=== PATIENT | female | born 1945 | race Caucasian/White ===

== ENCOUNTER → 2017-12-05 09:52 | Outpatient (CLI) | payer MEDICARE, OTHER, SELFPAY ==
--- NOTE | 2017-12-05 | DI.CT.S_ITS ---
PROCEDURE: CT ABDOMEN W CON INDICATIONS: UPPER ABDOMINAL PAIN TECHNIQUE: After the administration of oral and intravenous contrast, 5 mm thick sections acquired from the diaphragms to the iliac crests. 5 mm thick coronal and sagittal reformats were acquired. For radiation dose reduction, the following was used: automated exposure control, adjustment of mA and/or kV according to patient size. COMPARISON: [facility], CT, ABDOMEN/PELVIS WITH CONTRAST, 02/28/2016, 9:40. FINDINGS: Image quality: Excellent. Lung bases: Lung bases are clear. Heart size is normal. Solid organs: Liver is normal in size and enhancement. Gallbladder appears normal. Biliary system is non dilated. Pancreas enhances normally. Spleen is normal in size and enhancement. No adrenal nodules. Kidneys are normal in size, without hydronephrosis. Peritoneum and bowel: Contrast enhanced bowel loops appear normal in caliber. No free fluid or air. Nodes and vessels: No retroperitoneal or mesenteric adenopathy by size criteria. Aorta and inferior vena cava are normal in size. Bones: No suspicious bony lesions. No vertebral body compression fractures. Miscellaneous: No ventral hernias. IMPRESSION: Source of upper abdominal pain is not identified. No sign of intestinal obstruction or perforation. At the lung bases no inflammatory process is seen. Dictated by: Robb Sánchez M.D. on 12/05/2017 at 14:17 Approved by: Robb Sánchez M.D. on 12/05/2017 at 14:19
== END ==
PROVIDERS: PCP Internal Medicine; Visit Provider Internal Medicine
DX: R10.10 Upper abdominal pain, unspecified (principal)
CPT/HCPCS: 74160; Q9967

== ENCOUNTER → 2018-01-26 16:18 | Outpatient (CLI) | payer MEDICARE, OTHER, SELFPAY ==
--- NOTE | 2018-01-26 16:21 | DI.MRI.S_ITS ---
PROCEDURE: MR CERVICAL SPINE WO CON INDICATIONS: Cervical stenosis with right radicular features TECHNIQUE: Noncontrast sagittal T1 spin echo and T2 fast spin echo, sagittal STIR, foraminal oblique sagittal T2 fast spin echo, and axial gradient echo or T2 fast spin echo through the cervical spine. COMPARISON: [facility], MR, C-SPINE WITHOUT CONTRAST, 06/13/2016, 16:07. [facility], CR, XR CERVICAL SPINE 4V OR 5V, 01/26/2018, 16:07. FINDINGS: Image quality: Excellent. Alignment and Curvature: Anterior fusion is present at C6-7. Bone Marrow: Marrow demonstrates normal overall signal. Spinal Cord: Visualized spinal cord has normal size and signal. No cerebellar tonsillar herniation. Paraspinous Soft Tissues: No paravertebral masses. Prevertebral soft tissues are normal in thickness. Discs: Mild disc desiccation is present within the visualized cervical and thoracic spine. C2-C3: No disc bulge, spinal stenosis or foraminal narrowing. C3-C4: Mild disc bulge without spinal stenosis. Moderate left and mild right foraminal narrowing with uncovertebral hypertrophy. C4-C5: Mild disc bulge with mild spinal stenosis. Severe left and [id number] right foraminal narrowing with uncovertebral hypertrophy. C5-C6: Mild disc bulge with minimal canal narrowing. Moderate bilateral foraminal narrowing, right greater than left with uncovertebral hypertrophy. C6-C7: Postsurgical changes are present. No spinal stenosis or foraminal narrowing. C7-T1: No disc bulge, spinal stenosis or foraminal narrowing. IMPRESSION: 1. Anterior fusion at C6-7. 2. Multilevel foraminal narrowing most severe at C4-5 secondary to uncovertebral arthropathy. Dictated by: Candida Scales M.D. on 01/26/2018 at 17:22 Approved by: Candida Scales M.D. on 01/26/2018 at 17:25
--- NOTE | 2018-01-26 16:21 | DI.RAD.S_ITS ---
PROCEDURE: XR CERVICAL SPINE 4V OR 5V INDICATIONS: Cervical stenosis with right radicular features TECHNIQUE: 5 views of the cervical spine were acquired. COMPARISON: [facility], SPINE CERVICAL MIN 4VW, 07/30/2016, 12:32. FINDINGS: Bones: No fractures or dislocations to the T1 level. Stable ACDF at C6-C7 with surgical hardware and bone graft in expected position. There is mild C5-C6 and C7-T1 disc degeneration similar prior examination. Mild multilevel uncovertebral hypertrophy. Oblique views demonstrate mild bilateral foraminal narrowing at the C5-C6 and C6-C7 levels. No suspicious bony lesions. Soft tissues: Prevertebral soft tissues are normal in thickness. IMPRESSION: 1. Stable postsurgical and degenerative change redemonstrated. Dictated by: Chidi ODOM Interpreted: Clinton Goins MD on 01/26/2018 at 16:54 Approved by: Karel Goins M.D. on 01/27/2018 at 13:00
== END ==
PROVIDERS: PCP Internal Medicine; Visit Provider Personal Emergency Response Attendant
DX: M48.02 Spinal stenosis, cervical region (principal); M12.9 Arthropathy, unspecified; Z98.1 Arthrodesis status
CPT/HCPCS: 72050; 72141

== ENCOUNTER 2018-02-06 08:02 | Emergency (ER) | payer MEDICARE, OTHER, SELFPAY ==
--- NOTE | 2018-02-06 08:06 | DI.RAD.S_ITS ---
PROCEDURE: XR KNEE LT 3V INDICATIONS: injury and pain. TECHNIQUE: 3 views of the knee were acquired. COMPARISON: None. FINDINGS: Bones: No fractures or dislocations. No suspicious bony lesions. Soft tissues: There is a small joint effusion. No suspicious soft tissue calcifications. IMPRESSION: 1. No fracture or dislocation. 2. Small joint effusion. Dictated by: Elías Nelson M.D. on 02/06/2018 at 9:07 Approved by: Elías Nelson M.D. on 02/06/2018 at 9:10
[2018-02-06 08:07] VITALS: BP 119/47; PULSE 64; RESP 14; TEMP 36.5; O2SAT 98
[2018-02-06 09:00] VITALS: BP 121/61; PULSE 60; RESP 16; O2SAT 99
--- NOTE | 2018-02-06 09:18 | ED.LOWEXIN ---
HPI - Extremity Injury (Lower) General Chief Complaint: Extremity Injury, Lower Stated Complaint: FELL 2 DAYS, BAD KNEE Time Seen by Provider: 02/06/18 09:01 Source: patient Mode of arrival: ambulatory Limitations: no limitations History of Present Illness HPI Narrative: Patient is a 72-year-old female who presents with left knee pain. She said she tripped walking up stairs 2 days ago. She says it has progressively gotten worse she has had more swelling overnight. She takes tramadol with Tylenol and gabapentin for her back but has not been helping. She has no numbness or tingling. No other injuries. MD complaint: knee injury Related Data Home Medications Medication Instructions Recorded Confirmed [STOOL SOFTENER] 1 dose PO PRN PRN #0 07/03/17 02/06/18 cholecalciferol (vitamin D3) 2,000 iu PO QDAY #0 07/03/17 02/06/18 [Vitamin D3] levothyroxine [Synthroid] 0.05 mg PO QDAY #0 07/03/17 02/06/18 atorvastatin 10 mg tablet 10 mg PO DAILY 01/19/18 02/06/18 gabapentin 600 mg tablet 600 mg PO TID 01/19/18 02/06/18 tramadol 37.5 mg-acetaminophen 325 1 tab PO Q4-6H PRN 01/19/18 02/06/18 mg tablet Allergies Allergy/AdvReac Type Severity Reaction Status Date / Time Penicillins [PENICILLINS] Allergy Intermediate hives Verified 02/06/18 08:07 Review of Systems Review of Systems GENERAL: Denies chills, fatigue, malaise, fever, sweats, travel HEENT: Denies sinus pain, ear pain, sore throat, difficulty swallowing, neck pain RESPIRATORY: Denies dyspnea, cough, wheezing, hemoptysis, sputum. CARDIOVASCULAR: Denies chest pain, palpitations, orthopnea, edema GASTROINTESTINAL: Denies nausea, vomiting, abdominal pain, diarrhea, constipation, melena. : Denies dysuria, frequency, incontinence, hematuria, urinary retention, flank pain. MUSCULOSKELETAL: See HPI SKIN: No rash, no erythema, no pruritus NEUROLOGIC: Denies weakness, dizziness, headache, numbness, change in speech, confusion PSYCHIATRIC: No concerning psychosocial issues. 12 point review of systems is negative except for those stated above and HPI Exam Initial Vital Signs Initial Vital Signs: Vital Signs Temperature 97.7 F 02/06/18 08:07 Pulse Rate 64 02/06/18 08:07 Respiratory Rate 14 02/06/18 08:07 Blood Pressure 119/47 L 02/06/18 08:07 Pulse Oximetry 98 02/06/18 08:07 GENERAL: Well-appearing, well-nourished and in no acute distress. CARDIOVASCULAR: peripheral pulses in tact, cap refill <2 sec RESPIRATORY: No respiratory distress, speaks in full sentences without difficulty EXTREMITIES: Normal range of motion, no clubbing or edema. Neurovascularly intact -left knee effusion appreciated. She is able to flex and extend actively but is painful and limited due to swelling. Neurovascularly intact. Knee is stable. Tender medial side. NEUROLOGICAL: Cranial nerves II through XII grossly intact. Normal gait and speech. SKIN: Warm, dry, no petechiae, no rashes or lesions. Course Orders Ordered: ED Orders 02/06/18 08:06 XR knee LT 3V Stat Vital Signs - 8 hr 02/06/18 10:46 Pulse Rate 58 L Respiratory Rate 20 Blood Pressure 117/59 L Pulse Oximetry 99 MDM - Extremity Injury (Lower) Imaging Data left knee x-ray: Radiologist's impression: PROCEDURE: XR KNEE LT 3V INDICATIONS: injury and pain. TECHNIQUE: 3 views of the knee were acquired. COMPARISON: None. FINDINGS: Bones: No fractures or dislocations. No suspicious bony lesions. Soft tissues: There is a small joint effusion. No suspicious soft tissue calcifications. IMPRESSION: 1. No fracture or dislocation. 2. Small joint effusion. Dictated by: Elías Nelson M.D. on 02/06/2018 at 9:07 Discharge Plan Departure Patient Disposition: Home, Self-Care Clinical Impression: Strain of left knee Discharge Date/Time: 02/06/18 10:48 Interventions: ED Discharge Assessment Last Done: 02/06/18 10:46 Instructions: DI for Knee Sprain Activity Restrictions/Additional Instructions: *You have been diagnosed with left knee sprain *What to do: Were knee brace in use crutches as needed. May require physical therapy possibly an MRI *Continue to take medications as directed -ibuprofen 600 mg every 6-8 hours with food for 1 week if needed for pain *Follow up with your primary care provider in 2-3 days *Return to ER if you should have numbness tingling, increasing pain or any new, worsening or concerning symptoms Prescriptions: No Action levothyroxine [Synthroid] 50 MCG tablet 0.05 mg PO QDAY Qty: 0 RF: 0 [STOOL SOFTENER] 1 dose PO PRN PRN (Reason: Constipation) Qty: 0 RF: 0 cholecalciferol (vitamin D3) [Vitamin D3] 2,000 UNIT capsule 2,000 iu PO QDAY Qty: 0 RF: 0 gabapentin 600 mg tablet 600 mg PO TID RF: 0 tramadol-acetaminophen 37.5-325 mg tablet 1 tab PO Q4-6H PRN (Reason: Pain, Moderate) RF: 0 atorvastatin 10 mg tablet 10 mg PO DAILY RF: 0 Referrals: [facility] [Provider Group] Stormy Corea MD [Primary Care Provider] -
[2018-02-06 10:01] VITALS: BP 117/59; PULSE 60; RESP 16; O2SAT 100
[2018-02-06 10:46] VITALS: BP 117/59; PULSE 58; RESP 20; O2SAT 99
== END 2018-02-06 10:48 | disposition home or self-care (01) ==
PROVIDERS: Emergency Provider Emergency Medicine; PCP Internal Medicine
DX: S86.912A Strain of unspecified muscle(s) and tendon(s) at lower leg level, left leg, initial encounter (principal); W18.43XA Slipping, tripping and stumbling without falling due to stepping from one level to another, initial encounter
CPT/HCPCS: 73562; 99283

== ENCOUNTER 2018-02-24 07:15 | Outpatient (CLI) | payer MEDICARE, OTHER, SELFPAY ==
[2018-02-24] VITALS (9 sets, daily range): BP systolic 100–113; BP diastolic 39–60; PULSE 56–62; RESP 8–120; TEMP 36.1; O2SAT 100
--- NOTE | 2018-02-24 07:16 | DI.RAD.S_ITS ---
PROCEDURE: PAIN C/T INTERLAMINAR INJECT INDICATIONS: C7/T1 TL MIK FINDINGS: Fluoroscopic spot filming was performed to verify placement of spinal needles at the C7-T1 level(s), T6-T7 labeled on the films. Appropriate location(s) of the needle tip(s) was confirmed by injection of iodinated contrast. IMPRESSION: Intraoperative imaging for needle injection. Dictated by: Karel Goins M.D. on 02/25/2018 at 8:23 Approved by: Karel Goins M.D. on 02/25/2018 at 8:25
--- NOTE | 2018-02-24 08:18 | PM.PROC.1 ---
Procedures Date/Time Date of procedure: 02/24/18 Time of procedure: 08:39 General Procedure description: PREOP DIAGNOSIS 1. CERVICAL STENOSIS, 2. CERVICAL HNP WITH UPPER EXTREMITY RADICULAR FEATURES, POST OP DIAGNOSIS 1. CERVICAL STENOSIS, 2. CERVICAL HNP WITH UPPER EXTREMITY RADICULAR FEATURES, PROCEDURES 1. FLUORSCOPICALLY GUIDED CONTRAST CONTROLLED INTERLAMINAR EPIDURAL STEROID INJECTION - C7/T1 TL MIK, PHYSICIAN: Justyn Diaz DO INDICATIONS: Renetta is referred by for treatment of Cervical Stenosis. FINDINGS Cervical Stenosis due to disc deterioration and nerve root irritation and nerve root irritation DESCRIPTION OF PROCEDURE Fluoroscopically guided, contrast-controlled C7/T1 translaminar epidural steroid injection with conscious sedation. Following denial of allergy and review of potential side effects and complications, including, but not necessarily limited to, infection, allergic reaction, local tissue breakdown, temporary as well as permanent nerve injury, stroke, paralysis, and possible , the patient indicated that patient understood and agreed to proceed. An informed consent document was signed by the patient, witnessed by a nurse, and placed in the patient's chart. Additionally, other treatment options including modalities, medications, and physical therapy were reviewed with the patient. After review of previous anaesthesic history and IV conscious sedation the patient was deemed safe to proceed with todays procedure with IV conscious sedation as ASA class II designation. Safety time-out was performed to confirm patient ID, procedure to be performed and site of procedure. IV sedation was accomplished with a combination of 4mg of Versed administered by the RN after DO order, titrated to patient comfort during the course of the procedure while the patient remained responsive to all verbal commands. In the prone position, following sterile prep and drape of the cervical region, the C7/T1 translaminar space was identified fluoroscopically. The skin was anesthetized via a 25-gauge 1.5-inch needle with 1% lidocaine solution. At this point, a 25-gauge, 2.5-inch short bevel spinal needle was atraumatically introduced and advanced under fluoroscopic guidance into epidural space at the C7/T1 translaminar space. Depth was confirmed on lateral view. Radiological data, including multiple fluoroscopic views of the cervical spine, reveal a spinal needle at the C7/T1 translaminar space. Lateral views then show placement of the needle in the epidural space. Subsequent views show contrast material flowing superiorly and inferiorly in the epidural space. DSA fluoroscopy with live contrast injection, once again, confirmed no vascular or intrathecal uptake. At this point, using loss of resistance technique with saline and air, the epidural space was entered. Following negative aspiration, injection of approximately 1.5 cc of Isovue-200 with live fluoroscopy in the AP view confirmed epidural flow in the epidural space without vascular or intrathecal uptake observed. Subsequently, a test dose of 1 cc of 1% lidocaine solution was injected and patient was observed for two minutes without signs or symptoms of complications, including abdominal pain, shortness of breath, bilateral upper or lower extremity weakness, nausea and vomiting, prior to steroid injection. At this point, 3 cc or 30 mg of dexamethasone was then injected without incident. The patient tolerated the procedure well without signs or symptoms of complications prior to transfer to the recovery area for further monitoring The patient was then transferred to the recovery area where they were observed for an appropriate period of time after the injection. The patient reported a VAS score of 6 prior to the procedure and a post-procedure VAS of 0. Total Fluoroscopy Time: 23.2 seconds Total Conscious Sedation Time: 24min POST OP INSTRUCTIONS The patient was provided a Pain Log to continue to record their response to the target-specific procedure prior to follow-up visit with the referring provider. Additionally, specific post-injection care instructions and a contact number to our office were provided if concerns arise regarding possible complications associated with the procedure are suspected. Justyn Diaz DO Complications: none
[2018-02-24] MEDS: DEXAMETHASONE 10 MG/ML VIAL 30 MG INJ (08:30)
[2018-02-24] MEDS: LIDOCAINE 1% 20 ML INJ 5 ML INJ (08:30)
[2018-02-24] MEDS: IOPAMIDOL 15 ML VIAL 3 ML INJ (08:30)
[2018-02-24] MEDS: MIDAZOLAM 5 MG/5 ML VIAL IV (08:30)
--- NOTE | 2018-02-25 17:19 | PC.NURSE ---
POST PROCEDURE FOLLOW UP CALL MADE, PT DENIES CONCERNS AT THIS TIME.
== END 2018-02-24 09:47 | disposition home or self-care (01) ==
LOC: RAD 07:16
PROVIDERS: PCP Internal Medicine; Visit Provider Physical Medicine & Rehabilitation
DX: M50.13 Cervical disc disorder with radiculopathy, cervicothoracic region (principal); M48.02 Spinal stenosis, cervical region
CPT/HCPCS: 62321; 99152; J1100; J2250

== ENCOUNTER 2018-03-24 09:23 | Outpatient (CLI) | payer MEDICARE, OTHER, SELFPAY ==
[2018-03-24] VITALS (12 sets, daily range): BP systolic 107–137; BP diastolic 47–68; PULSE 59–66; RESP 16–20; TEMP 35.8; O2SAT 98–100
--- NOTE | 2018-03-24 09:27 | DI.RAD.S_ITS ---
PROCEDURE: PAIN C/T INTERLAMINAR INJECT INDICATIONS: Thoracic HNP with radiculopathy FINDINGS: Fluoroscopic spot filming was performed to verify placement of spinal needles at the T9-T10 level(s), as labeled on the films. Appropriate location(s) of the needle tip(s) was confirmed by injection of iodinated contrast. IMPRESSION: Successful T9-T10 midline translaminar needle tip localization for epidural steroid injection. Dictated by: Robb Sánchez M.D. on 03/24/2018 at 14:25 Approved by: Robb Sánchez M.D. on 03/24/2018 at 14:25
--- NOTE | 2018-03-24 11:29 | PM.PROC.1 ---
Procedures Date/Time Date of procedure: 03/24/18 Time of procedure: 11:29 General Procedure description: Preop diagnosis: Thoracic stenosis with HNP Postprocedure diagnosis: Thoracic stenosis with HNP Physician: Justyn Diaz D.O. Indications: Irasema is referred by for treatment of thoracic DDD/DJD with radiculopathy Description of procedure: Fluoroscopic guided, contrast controlled T9/10 translaminar epidural steroid injection with conscious sedation. Following denial of allergy review potential side effects and complications, including, but not necessarily limited to, infection, allergic reaction, local tissue breakdown, temporary as well as permanent nerve injury, stroke, paralysis and possible , the patient indicated that they understood and agreed to proceed. An informed consent document was signed by the patient, witnessed by the nurse, and placed in the patient's chart. Additionally other treatment options including modalities, medications and physical therapy were reviewed with the patient. After review of previous anaesthesic history and IV conscious sedation the patient was deemed safe to proceed with todays procedure with IV conscious sedation as ASA class II designation. Safety time-out was performed to confirm patient ID, procedure to be performed and site of procedure. IV sedation was accomplished with a combination of 5mg of Versed administered by the RN after DO order, titrated to patient comfort during the course of the procedure while the patient remained responsive to all verbal commands In the prone position, following sterile prep and drape of the thoracic region the T9/10 translaminar space was identified fluoroscopically. The skin was anesthetized via 25 gauge 20 mm sheath with 1% lidocaine solution. At this point a 20 gauge epidural needle was atraumatically introduced and advanced under fluoroscopic guidance into the region of the T9/10 translaminar space depth was confirmed on lateral view. Radiographic data, including multiple fluoroscopic views of the thoracic spine, reveals spinal needle at the T9/10 translaminar space. Lateral views then showed the placement of the needle in the epidural space. Subsequent view show contrast material flowing superiorly and inferiorly in the epidural space. No vascular or intrathecal uptake is observed. At this point using loss of resistance technique with saline and the epidural space was entered. This was confirmed followed negative aspiration and injection of approximately 1.5 cc of Isovue 200 showed excellent epidural flow without vascular or intrathecal uptake. At this point, 1 cc of 1% lidocaine solution was admitted as a test dose and the patient was observed for an appropriate period of time without signs or symptoms of complications, including abdominal pain, shortness of breath, bilateral upper and lower extremity weakness, nausea and vomiting, prior to steroid injection. Subsequently, 3 cc or 30 mg of dexamethasone was then injected without incident. The patient tolerated the procedure well without signs of complications and subsequently was transferred to the recovery room for further monitoring. The patient was then transferred to the recovery area with their observed for an appropriate time after the injection. Patient reported a VAS score of 7 prior to the procedure and postprocedure VAS of 2. Total fluoroscopy time: 56.3 sec Total conscious sedation time: 24 min Justyn Diaz D.O. Complications: none
[2018-03-24] MEDS: MIDAZOLAM 5 MG/5 ML VIAL IV (11:33)
[2018-03-24] MEDS: IOPAMIDOL 15 ML VIAL 3 ML INJ (11:38)
[2018-03-24] MEDS: DEXAMETHASONE 10 MG/ML VIAL 30 MG INJ (11:38)
[2018-03-24] MEDS: LIDOCAINE 1% 20 ML INJ 5 ML INJ (11:38)
[2018-03-24 11:39] LABS: Alanine Aminotransferase 26 IU/L (9-52); Albumin 4.4 g/dL (3.5-5.0); Alkaline Phosphatase 54 U/L (38-126); Aspartate Aminotransferase 31 IU/L (14-36); Bilirubin Total 0.7 mg/dL (0.2-1.3); Bilirubin Unconjugated 0.4 mg/dL (0.0-1.1); Cholesterol 180 mg/dL (140-199); Globulin 2.2 g/dL (1.7-4.1); HDL Cholesterol 78 mg/dL (40-60); HEMOLYSIS < 15 (0-50); LDL Cholesterol Calculated 83 mg/dL (<100); Total Protein 6.6 g/dL (6.3-8.2); Triglycerides 97 mg/dL (35-150)
== END 2018-03-24 12:48 ==
LOC: RAD 09:24
PROVIDERS: PCP Internal Medicine; Visit Provider Physical Medicine & Rehabilitation
DX: M51.14 Intervertebral disc disorders with radiculopathy, thoracic region (principal); M48.04 Spinal stenosis, thoracic region
CPT/HCPCS: 36415; 62321; 80061; 80076; 99152; J1100; J2250

== ENCOUNTER → 2018-05-14 08:53 | Outpatient (CLI) | payer MEDICARE, OTHER, SELFPAY ==
--- NOTE | 2018-05-14 | DI.MG.S_ITS ---
BILATERAL DIGITAL SCREENING MAMMOGRAM 3D/2D WITH CAD: 05/14/2018 CLINICAL: Routine screening. Family history of breast cancer. Comparison is made to exams dated: 05/26/2017 mammogram, 05/16/2016 mammogram, and 04/21/2015 mammogram - [facility]. There are scattered fibroglandular elements in both breasts. Current study was also evaluated with a Computer Aided Detection (CAD) system. There is a mole marker on both breasts. There are linear scar markers overlying the right breast. No significant masses, calcifications, or other findings are seen in either breast. There has been no significant interval change. IMPRESSION: NEGATIVE There is no mammographic evidence of malignancy. A 1 year screening mammogram is recommended.(05/15/2019) This exam was interpreted at Station ID: [id number]. NOTE: For mammograms, a report in lay terms will be sent to the patient. Approximately 15% of breast malignancies will not be visualized mammographically. In the management of a palpable breast mass, a negative mammogram must not discourage biopsy of a clinically suspicious lesion. Electronically Signed By: Boo Peres M.D. ecl/:05/15/2018 02:23:18 letter sent: Normal Exam ACR BI-RADS Category 1: Negative [id number]
== END ==
PROVIDERS: PCP Internal Medicine; Visit Provider Internal Medicine
DX: Z12.31 Encounter for screening mammogram for malignant neoplasm of breast (principal); Z80.3 Family history of malignant neoplasm of breast
CPT/HCPCS: 77063; 77067

== ENCOUNTER → 2018-06-30 12:44 | Outpatient (CLI) | payer MEDICARE, OTHER, SELFPAY ==
[2018-06-30 13:53] LABS: Add Manual Diff / Slide Review NO; Basophils Percent Auto 2.3 % (0-2); Eosinophils Percent Auto 3.3 % (2-4); Hematocrit 38.9 % (36-46); Hemoglobin 12.9 g/dL (12.0-16.0); Lymphocytes Percent Auto 36.6 % (25-40); Mean Corpuscular HGB Conc 33.2 % (30-36); Mean Corpuscular Hemoglobin 31.6 PG (26-34); Mean Corpuscular Volume 95.2 fL (80-100); Monocytes Percent Auto 9.3 % (3-14); Neutrophils Absolute Auto 2100 /uL (3000-5900); Neutrophils Percent Auto 48.5 % (50-75); Platelet Count 183 X10^3/uL (150-400); Red Blood Cell Count 4.08 X10^6/uL (4.0-5.2); Red Cell Distribution Width 13.8 % (11.6-14.8); White Blood Cell Count 4.3 X10^3/uL (4.5-11.0)
[2018-06-30 14:36] LABS: Alanine Aminotransferase 26 IU/L (9-52); Albumin 4.4 g/dL (3.5-5.0); Albumin Globulin Ratio 1.8 (1.0-2.8); Alkaline Phosphatase 72 U/L (38-126); Aspartate Aminotransferase 35 IU/L (14-36); Bilirubin Total 0.3 mg/dL (0.2-1.3); Blood Urea Nitrogen 14 mg/dL (7-17); Calcium 9.3 mg/dL (8.4-10.2); Carbon Dioxide 29 mmol/L (22-32); Chloride 103 mmol/L (98-107); Estimated Glomerular Filt Rate > 60.0 mL/min (>60); Globulin 2.5 g/dL (1.7-4.1); Glucose 89 mg/dL (80-110); HEMOLYSIS < 15 (0-50); Potassium 4.1 mmol/L (3.4-5.1); Sodium 142 mmol/L (137-145); Total Protein 6.9 g/dL (6.3-8.2)
== END ==
PROVIDERS: Internal Medicine Hematology & Oncology; Family Provider Internal Medicine; PCP Internal Medicine; Visit Provider Internal Medicine Hematology & Oncology
DX: D70.9 Neutropenia, unspecified (principal); E03.9 Hypothyroidism, unspecified
CPT/HCPCS: 36415; 80053; 85025

== ENCOUNTER → 2018-07-21 14:24 | Outpatient (CLI) | payer MEDICARE, OTHER, SELFPAY ==
--- NOTE | 2018-07-21 | DI.RAD.S_ITS ---
PROCEDURE: XR LUMBAR SPINE MIN 4V INDICATIONS: Spinal stenosis, lumbar region without neurogenic claudicati TECHNIQUE: 5 views of the lumbar spine were acquired. COMPARISON: [facility], CR, SPINE LUMB MIN 4VW, 01/15/2017, 15:53. FINDINGS: Bones: No fracture or focal osseous destruction. Diffuse osteopenia. Post surgical changes with L4-L5 posterior spinal fixation with interbody cage graft. Hardware appears intact without evidence of loosening. There is mild narrowing of the remaining lumbar disc spaces. Levocurvature of the lumbar spine. Posterior decompression at L4 Soft tissues: Overlying bowel gas pattern is normal. No suspicious soft tissue calcifications. Oblique images: No pars defects. IMPRESSION: Unchanged postsurgical sequela from L4-L5, and mild diffuse lumbar disc degeneration with no definite interval progression. Levoscoliosis Dictated by: Dhaval Dang M.D. on 07/21/2018 at 16:39 Approved by: Dhaval Dang M.D. on 07/21/2018 at 16:41
== END ==
PROVIDERS: Family Provider Physical Therapist; PCP Internal Medicine; Visit Provider Internal Medicine
DX: M48.061 Spinal stenosis, lumbar region without neurogenic claudication (principal); M51.36 Other intervertebral disc degeneration, lumbar region; M41.86 Other forms of scoliosis, lumbar region
CPT/HCPCS: 72110

== ENCOUNTER 2018-08-05 15:42 | Outpatient (CLI) | payer MEDICARE, OTHER, SELFPAY ==
[2018-08-05] VITALS (9 sets, daily range): BP systolic 95–137; BP diastolic 50–77; PULSE 66–70; RESP 16–18; TEMP 36.1; O2SAT 98–100
--- NOTE | 2018-08-05 15:43 | DI.RAD.S_ITS ---
PROCEDURE: PAIN L/S TRANSFORAMINAL INJECT INDICATIONS: SPINAL STENOSIS FINDINGS: Fluoroscopic spot filming was performed to verify placement of spinal needles at the right L3-L4 level for epidural steroid injection through the perineural as labeled on the films. Appropriate location(s) of the needle tip(s) was confirmed by injection of iodinated contrast. IMPRESSION: Successful perineural needle tip localization for epidural steroid injection. Dictated by: Robb Sánchez M.D. on 08/05/2018 at 16:59 Approved by: Robb Sánchez M.D. on 08/05/2018 at 17:00
[2018-08-05] MEDS: MIDAZOLAM 5 MG/5 ML VIAL IV (16:10)
[2018-08-05] MEDS: DEXAMETHASONE 10 MG/ML VIAL 20 MG INJ (16:15)
[2018-08-05] MEDS: IOPAMIDOL 15 ML VIAL 3 ML INJ (16:15)
[2018-08-05] MEDS: BUPIVACAINE 0.25% (PF) VIAL 2 ML INJ (16:15)
[2018-08-05] MEDS: methylPREDNISolone acetate 80 MG/ML VIAL INJ (16:15)
--- NOTE | 2018-08-05 16:18 | PC.NURSE ---
ASSISTING PT OFF TABLE AND TRANSPORTING TO POST PROC AREA IN STABLE CONDITION
--- NOTE | 2018-08-05 16:24 | P.PCN_ITS ---
Procedures Date/Time Date of procedure: 08/05/18 Time of procedure: 16:24 General Procedure description: PROVIDER: Justyn Diaz DO Operative Note PREOP DIAGNOSIS 1. FORAMINAL STENOSIS WITH LE SYMPTOMS, POST OP DIAGNOSIS 1. FORAMINAL STENOSIS WITH LE SYMPTOMS, PROCEDURES 1. FLUOROSCOPICALLY GUIDED CONTRAST CONTROLLED TRANSFORAMINAL EPIDURAL STEROID INJECTION - RIGHT L3/4 TFESI SURGEON: Justyn Diaz DO INDICATIONS Irasema is referred by Dr. Corea for treatment of Foraminal Stenosis with right LE Symptoms FINDINGS Foraminal Nerve Root Compression secondary to disc disease and facet hypertrophy DESCRIPTION OF PROCEDURE Following denial of allergy and review of potential side effects and complications, including, but not necessarily limited to, infection, allergic reaction, local tissue breakdown, stroke, temporary or permanent nerve injury, paralysis, and possible , the patient indicated that the patient understood and agreed to proceed. An informed consent document was signed by the patient, witnessed by a nurse, and placed in the patient's chart. Additionally, other treatment options including medications, modalities, and physical therapy were reviewed with the patient. After review of previous anaesthesic history and IV conscious sedation the patient was deemed safe to proceed with todays procedure with IV conscious sedation as ASA class II designation. Safety time-out was performed to confirm patient ID, procedure to be performed and site of procedure. IV sedation was accomplished with a combination of 3mg was administered by the RN after DO order , titrated to patient comfort during the course of the procedure while the patient remained responsive to all verbal commands In the prone position following sterile prep and drape of the lumbar region, the right L3/4 posterior neuroforamen was identified fluoroscopically. The skin was anesthetized via a 25-gauge 1.5-inch needle with 1% lidocaine solution. At this point, a 25-gauge 3.5-inch spinal needle was atraumatically introduced and advanced under fluoroscopic guidance through the posterior right L3/4 neuroforamen to approximately the anterior aspect of the canal. Depth was confirmed on lateral view. Following negative aspiration, injection of approximately 1.5 cc of Isovue 200 under live fluoroscopy in the AP view confirmed excellent flow along the nerve root, into the epidural space without vascular or intrathecal uptake observed Radiological data, including multiple fluoroscopic views of the lumbosacral spine, reveal a spinal needle at the right L3/4 posterior neuroforamen. Subsequent views show flow of contrast material flowing superiorly and inferiorly along the nerve root confirming epidural flow. Subsequently, a test dose of 1.5 cc of 1% lidocaine solution was administered and patient was observed for two minutes for signs or symptoms of complications , including abdominal pain, shortness of breath, bilateral upper or lower extremity weakness, nausea and vomiting, prior to steroid injection. At this point, a total of 3 cc or 20 mg of dexamethasone and 80mg Depo medrol was injected without incident. The patient tolerated the procedure well without signs or symptoms of complications prior to transfer to the recovery area continued monitoring without incident. The patient was then transferred to the recovery area where they were observed for an appropriate time after the injection. The patient reported a VAS score of 7 prior to the procedure and a post-procedure VAS of 0. Total Fluoroscopy Time: 24.2 seconds Total Conscious Sedation Time: 24min POST OP INSTRUCTIONS The patient was provided a Pain Log to continue to record their response to the target-specific procedure prior to follow-up visit with their referring physician. Additionally, specific post-injection care instructions and a contact number to our office were provided if concerns arise regarding possible complications associated with the procedure are suspected. Justyn Diaz, Complications: none
== END 2018-08-05 16:47 ==
LOC: RAD 15:43
PROVIDERS: PCP Internal Medicine; Visit Provider Physical Medicine & Rehabilitation
DX: M48.062 Spinal stenosis, lumbar region with neurogenic claudication (principal); M51.16 Intervertebral disc disorders with radiculopathy, lumbar region; Z98.1 Arthrodesis status
CPT/HCPCS: 64483; 99152; J1040; J1100; J2250

== ENCOUNTER → 2018-11-27 16:41 | Outpatient (CLI) | payer MEDICARE, OTHER, SELFPAY ==
--- NOTE | 2018-11-27 16:42 | DI.MRI.S_ITS ---
PROCEDURE: MR ABDOMEN WO CON INDICATIONS: EPIGASTRIC PAIN TECHNIQUE: Coronal HASTE through the abdomen, axial 2-D FLASH in- and [id number], and breath-hold T2 FSE with fat saturation through the biliary system and pancreas. Oblique coronal and axial thin-slice HASTE, radial thick-slab HASTE centered on the extrahepatic bile ducts. Intravenous secretin: Not requested. COMPARISON: [facility], CT, CT ABDOMEN W CON, 12/05/2017, 10:46. FINDINGS: Image quality: Excellent. Pancreas and biliary system: Intra- and extra-hepatic biliary ducts are non dilated. Pancreas is normal in morphology, without adjacent soft tissue edema. Pancreatic duct is normal in caliber, without developmental anomalies. Gallbladder appears normal. Other solid organs: Liver is normal in size. Spleen is normal in size. No adrenal nodules. Both kidneys are normal in size, without hydronephrosis. Nodes and vessels: No retroperitoneal or mesenteric adenopathy by size criteria. Aorta and inferior vena cava are normal in size. Bowel and peritoneum: Unenhanced bowel loops are normal in caliber. No free fluid. Lung bases: No basal pleural effusions. Heart size is normal. Bones and soft tissues: No ventral hernias. Bone marrow is of normal overall signal. IMPRESSION: Source of reported epigastric pain is not identified. There is no sign of gallstones or gallbladder inflammation. The pancreas appears free of inflammation also and no biliary or pancreatic ductal calculus or dilatation is present. Dictated by: Robb Sánchez M.D. on 11/30/2018 at 11:09 Approved by: Robb Sánchez M.D. on 11/30/2018 at 11:11
== END ==
PROVIDERS: PCP Internal Medicine; Visit Provider Physician Assistant
DX: R10.13 Epigastric pain (principal)
CPT/HCPCS: 74181

== ENCOUNTER → 2019-05-22 10:20 | Outpatient (CLI) | payer MEDICARE, OTHER, SELFPAY | PROVIDERS: PCP Internal Medicine; Visit Provider Internal Medicine | DX: Z12.31 Encounter for screening mammogram for malignant neoplasm of breast (principal) ==

== ENCOUNTER → 2019-05-31 10:20 | Outpatient (CLI) | payer MEDICARE, OTHER, SELFPAY ==
[2019-05-31 10:56] LABS: BUN Creatinine Ratio 16.3 (6-22); Blood Urea Nitrogen 13 mg/dL (7-17); Estimated Glomerular Filt Rate > 60.0 mL/min (>60)
--- NOTE | 2019-05-31 11:00 | DI.CT.S_ITS ---
PROCEDURE: CT ABDOMEN PELVIS W CON INDICATIONS: Pelvic and perineal pain bone density disorders TECHNIQUE: After the administration of oral and intravenous contrast, 5 mm thick sections acquired from the diaphragms to the symphysis. 5 mm thick coronal and sagittal reformats were performed. For radiation dose reduction, the following was used: automated exposure control, adjustment of mA and/or kV according to patient size. COMPARISON: CT, ABD/PELVIS W/CON ([facility]), 03/22/2009, 17:33. [facility], CT, CT ABDOMEN W CON, 12/05/2017, 10:46. [facility], MR, MR ABDOMEN WO CON, 11/27/2018, 17:15. [facility], CT, ABDOMEN/PELVIS WITH CONTRAST, 02/28/2016, 9:40. FINDINGS: Image quality: Excellent. ABDOMEN: Lung bases: Lung bases are clear. Heart size is normal. Solid organs: Liver is enlarged with steatosis. Gallbladder is unremarkable. Biliary system is non-dilated. Pancreas enhances normally. Spleen is normal in size and enhancement. No adrenal nodules. Kidneys are normal in size and enhancement, without hydronephrosis. Peritoneum and bowel: Stomach, small bowel, and colon loops are nonobstructive. There is a thickened appearance within the transverse, descending and sigmoid colon. Diverticula are present. Minimal areas of questionable pericolonic stranding are present. The It is noted that there is significant thickening of the pylorus relatively unchanged compared to 2018. The No free fluid or air. Nodes and vessels: No retroperitoneal or mesenteric adenopathy. Aorta and inferior vena cava are normal in caliber. Miscellaneous: No ventral hernias. PELVIS: Genitourinary: Bladder wall thickness is normal. Miscellaneous: No inguinal hernias or adenopathy. Bones: No suspicious bony lesions. No vertebral body compression fractures. IMPRESSION: 1. Appearance of thickening within the transverse, descending and sigmoid colon as above. While it is incompletely distended, there are diverticula and questionable pericolonic stranding raise concern for early colitis process possibly secondary to diverticulitis or other etiology such as infection or inflammation. 2. Hepatomegaly with steatosis. Dictated by: Candida Scales M.D. on 05/31/2019 at 14:00 Approved by: Candida Scales M.D. on 05/31/2019 at 14:07
== END ==
PROVIDERS: PCP Internal Medicine; Visit Provider Internal Medicine
DX: R10.2 Pelvic and perineal pain (principal); M85.852 Other specified disorders of bone density and structure, left thigh; Z78.0 Asymptomatic menopausal state; E03.9 Hypothyroidism, unspecified; E78.5 Hyperlipidemia, unspecified; R16.0 Hepatomegaly, not elsewhere classified; K76.0 Fatty (change of) liver, not elsewhere classified; K57.30 Diverticulosis of large intestine without perforation or abscess without bleeding; Z90.722 Acquired absence of ovaries, bilateral
CPT/HCPCS: 36415; 74177; 77080; 82565; 84520; Q9967

== ENCOUNTER → 2019-06-18 09:13 | Outpatient (CLI) | payer MEDICARE, OTHER, SELFPAY ==
--- NOTE | 2019-06-18 | DI.US.S_ITS ---
LIMITED ULTRASOUND OF LEFT BREAST AND AXILLA: 06/18/2019 CLINICAL: Left breast discomfort. Comparison is made to exams dated: 06/18/2019 mammogram, 05/14/2018 mammogram - [facility], 05/26/2017 mammogram, 05/16/2016 mammogram, and 04/19/2014 mammogram - [facility]. Real-time ultrasound of the left breast 6 o'clock, and axilla regions was performed on the areas of interest. IMPRESSION: NEGATIVE There is no sonographic evidence of malignancy. There is no abnormality seen in the left breast to correspond with the pain at 6 o'clock, however, clinical followup is recommended. There is no abnormality seen in the left axilla to correspond with the pain in the left axilla, however, clinical followup is recommended. A 1 year screening mammogram is recommended. This exam was interpreted at Station ID: [id number]. Electronically Signed By: Elías viera/clara:06/18/2019 11:33:42 letter sent: Clinical Evaluation Ultrasound BI-RADS: 1 Negative
--- NOTE | 2019-06-18 | DI.MG.S_ITS ---
BILATERAL DIGITAL DIAGNOSTIC MAMMOGRAM 3D/2D: 06/18/2019 CLINICAL: Left breast lump and pain. Comparison is made to exams dated: 05/14/2018 mammogram - [facility], 05/26/2017 mammogram, and 05/16/2016 mammogram - [facility]. There are scattered fibroglandular elements in both breasts. No significant masses, calcifications, or other findings are seen in either breast. IMPRESSION: INCOMPLETE: NEEDS ADDITIONAL IMAGING EVALUATION There is no abnormality seen in the left axilla to correspond with the pain in the left axilla, however, ultrasound is recommended. There is no abnormality seen in the left breast to correspond with the pain at 6 o'clock, however, ultrasound is recommended. This exam was interpreted at Station ID: [id number]. NOTE: For mammograms, a report in lay terms will be sent to the patient. Approximately 15% of breast malignancies will not be visualized mammographically. In the management of a palpable breast mass, a negative mammogram must not discourage biopsy of a clinically suspicious lesion. Electronically Signed By: Elías viera/clara:06/18/2019 11:32:32 ACR BI-RADS Category 0: Incomplete [id number]
== END ==
PROVIDERS: PCP Internal Medicine; Visit Provider Internal Medicine
DX: R92.8 Other abnormal and inconclusive findings on diagnostic imaging of breast (principal); N64.4 Mastodynia
CPT/HCPCS: 76642; 77066; G0279

== ENCOUNTER → 2019-07-27 11:54 | Outpatient (CLI) | payer MEDICARE, OTHER, SELFPAY ==
--- NOTE | 2019-07-27 | DI.MRI.S_ITS ---
BREAST MRI OF BOTH BREASTS- WITH CAD: 07/27/2019 CLINICAL: Left breast lump. Comparison is made to exams dated: 06/18/2019 ultrasound, 06/18/2019 mammogram, and 05/14/2018 mammogram - [facility]. Interpretation of this MRI was correlated with available mammograms and ultrasounds. Informed consent was obtained from the patient. 20 cc of ProHance (Gadoteridol) nonionic contrast was injected. Axial T1, T2, sagittal T1, and pre and post contrast T1 images were obtained with a dedicated breast coil. Post processing was performed including computer aided calculations of any tumor volumes and dimensions. There is minimal background parenchymal enhancement. Right breast: No discrete mass or abnormal enhancement to suggest malignancy in the right breast. Left breast: The left breast is asymmetrically larger than the right. No discrete mass or asymmetric enhancement to suggest malignancy. Specifically, no definite mass lesions demonstrated in the area of reported pain and palpable abnormality at the 6:00 position or reported pain in the left axilla. Miscellaneous: No abnormal enlarged axillary or internal mammary lymph nodes by size criteria. IMPRESSION: NEGATIVE 1. No evidence of malignancy in the right or left breast. Specifically, no discrete mass or abnormal enhancement demonstrated in the areas of pain and palpable abnormality in the left breast and left axilla. Recommend continued clinical followup and return to screening mammography. This exam was interpreted at Station ID: [id number]. Electronically Signed By: Elías viera/:07/27/2019 15:18:20 letter sent: Clinical Evaluation ACR BI-RADS Category 1: Negative [id number]
== END ==
PROVIDERS: PCP Internal Medicine; Visit Provider Internal Medicine
DX: N63.25 Unspecified lump in the left breast, overlapping quadrants (principal); N64.4 Mastodynia
CPT/HCPCS: 77049; A9579

== ENCOUNTER 2019-08-27 10:25 | Outpatient (CLI) | payer MEDICARE, OTHER, SELFPAY ==
[2019-08-27] VITALS (9 sets, daily range): BP systolic 101–125; BP diastolic 34–66; PULSE 57–64; RESP 16; TEMP 36.2; O2SAT 98–100
--- NOTE | 2019-08-27 10:27 | DI.RAD.S_ITS ---
PROCEDURE: PAIN C/T INTERLAMINAR INJECT INDICATIONS: THORACIC HERNIATED NUCLEUS PULPOSUS FINDINGS: Fluoroscopic spot filming was performed to verify placement of spinal needles at the T9-T10 level(s), as labeled on the films. Appropriate location(s) of the needle tip(s) was confirmed by injection of iodinated contrast. Dictated by: Dhaval Dang M.D. on 08/27/2019 at 13:32 Approved by: Dhaval Dang M.D. on 08/27/2019 at 13:33
[2019-08-27] MEDS: MIDAZOLAM 5 MG/5 ML VIAL IV (10:56)
[2019-08-27] MEDS: fentaNYL 100 MCG/2 ML INJ 50 MCG IV (10:56)
[2019-08-27] MEDS: BUPIVACAINE 0.25% (PF) VIAL 2 ML INJ (11:03)
[2019-08-27] MEDS: DEXAMETHASONE 10 MG/ML VIAL 20 MG INJ (11:03)
[2019-08-27] MEDS: IOPAMIDOL 15 ML VIAL 3 ML INJ (11:03)
--- NOTE | 2019-08-27 11:13 | PC.NURSE ---
ASSISTING PT OFF TABLE AND TRANSPORTING TO POST PROC AREA IN STABLE CONDITION. PASSING RN CARE OF PT OFF TO LIZ Cm RN.
--- NOTE | 2019-08-27 11:15 | P.PCN_ITS ---
Procedures Date/Time Date of procedure: 08/27/19 Time of procedure: 11:15 General Procedure description: Preop diagnosis: Thoracic stenosis with HNP Postprocedure diagnosis: Thoracic stenosis with HNP Physician: Justyn Diaz D.O. Indications: Irasema is referred by Dr. Corea for treatment of thoracic DDD/DJD with radiculopathy Description of procedure: Fluoroscopic guided, contrast controlled T9/10 translaminar epidural steroid inj ection with conscious sedation. Following review of allergy review potential side effects and complications, including, but not necessarily limited to, infection, allergic reaction, local tissue breakdown, temporary as well as permanent nerve injury, stroke, paralysis and possible , the patient indicated that they understood and agreed to proceed. An informed consent document was signed by the patient, witnessed by the nurse, and placed in the patient's chart. Additionally other treatment options including modalities, medications and physical therapy were reviewed with the patient. After review of previous anaesthesic history and IV conscious sedation the patient was deemed safe to proceed with todays procedure with IV conscious sedation as ASA class II designation. Safety time-out was performed to confirm patient ID, procedure to be performed and site of procedure. IV sedation was accomplished with a combination of 2mg of Versed and 50mcg of Fentanyl administered by the RN after DO order, titrated to patient comfort during the course of the procedure while the patient remained responsive to all verbal commands In the prone position, following sterile prep and drape of the thoracic region the T9/10 translaminar space was identified fluoroscopically. The skin was anesthetized via 25 gauge 20 mm sheath with 1% lidocaine solution. At this point a 25 gauge epidural needle was atraumatically introduced and advanced under fluoroscopic guidance into the region of the T9/10 translaminar space depth was confirmed on lateral view. Radiographic data, including multiple fluoroscopic views of the thoracic spine, reveals spinal needle at the T9/10 translaminar space. Lateral views then showed the placement of the needle in the epidural space. Subsequent view show contrast material flowing superiorly and inferiorly in the epidural space. No vascular or intrathecal uptake is observed. At this point using loss of resistance technique with saline and the epidural space was entered. This was confirmed followed negative aspiration and injection of approximately 1.5 cc of Isovue 200 showed excellent epidural flow without vascular or intrathecal uptake. At this point, 1cc of 0.25% marcaine solution was admitted as a test dose and the patient was observed for an appropriate period of time without signs or symptoms of complications, including abdominal pain, shortness of breath, bilateral upper and lower extremity weakness, nausea and vomiting, prior to steroid injection. Subsequently, 2cc or 20mg of dexamethasone was then injected without incident. The patient tolerated the procedure well without signs of complications and subsequently was transferred to the recovery room for further monitoring. The patient was then transferred to the recovery area with their observed for an appropriate time after the injection. Patient reported a VAS score of 7 prior to the procedure and postprocedure VAS of 2. Total fluoroscopy time: 21 sec Total conscious sedation time: 24 min Justyn Diaz D.O. Complications: none
--- NOTE | 2019-08-27 11:47 | PC.NURSE ---
Post procedure dishcarge note: Patient arrived AA/O x 3 slightly drowsy from sedation. VSS on arrival. Handoff report received from Natalia Garrison RN. Pain level 0/10. Discharge instructions reviewed with good understanding. Discharged to home. Ambulated to car with at 1140
== END 2019-08-27 11:40 | disposition home or self-care (01) ==
LOC: RAD 10:26
PROVIDERS: Family Provider Internal Medicine; PCP Internal Medicine; Visit Provider Physical Medicine & Rehabilitation
DX: M48.04 Spinal stenosis, thoracic region (principal); M51.14 Intervertebral disc disorders with radiculopathy, thoracic region
CPT/HCPCS: 62321; 99152; J1100; J2250; J3010

== ENCOUNTER → 2019-10-01 07:10 | Outpatient (CLI) | payer MEDICARE, OTHER, SELFPAY ==
--- NOTE | 2019-10-01 07:13 | DI.MRI.S_ITS ---
PROCEDURE: MR THORACIC SPINE WO CON INDICATIONS: Thoracic radicular pain TECHNIQUE: Noncontrast sagittal T1 spine echo and T2 fast spin echo, sagittal STIR, axial T1 and T2 fast spin echo through the thoracic spine. COMPARISON: [facility], CT, CT ABDOMEN PELVIS W CON, 05/31/2019, 11:49. [facility], CR, XR CERVICAL SPINE 4V OR 5V, 01/26/2018, 16:07. [facility], MR, T-SPINE WITHOUT CONTRAST, 06/13/2016, 16:30. FINDINGS: Image quality: Excellent. Alignment and Curvature: There is normal bony alignment. Bone Marrow: Marrow is of normal overall signal. No acute vertebral body compression fractures. Spinal Cord: Visualized spinal cord is normal in size and signal. Paraspinous Soft Tissues: No paravertebral masses. Miscellaneous: T3-T4: Unchanged central posterior disc protrusion causing mild canal stenosis. T5-T6: Interval increase in right paracentral disc protrusion mildly indenting on the cord, resulting in mild canal stenosis. T7-T8: Minimal right paracentral disc plus osteophyte without canal stenosis. T8-T9: Unchanged mild disc bulge with mild canal stenosis. T9-T10: Unchanged disc bulge with mild canal stenosis. Foramina are patent at all levels. IMPRESSION: 1. Interval increase in right paracentral disc protrusion at T5-T6, mildly indenting on the cord, resulting in mild canal stenosis. 2. Stable disc protrusion at T3-T4 and disc bulges at T7-T8 through T9-T10. Mild canal stenosis at T3-T4, T8-T9, and T9-T10. Dictated by: Pradip Asher M.D. on 10/01/2019 at 11:35 Approved by: Pradip Asher M.D. on 10/01/2019 at 11:46
== END ==
PROVIDERS: Family Provider Internal Medicine; PCP Internal Medicine; Referring Provider Registered Nurse; Visit Provider Registered Nurse
DX: M51.14 Intervertebral disc disorders with radiculopathy, thoracic region (principal); M48.04 Spinal stenosis, thoracic region
CPT/HCPCS: 72146

== ENCOUNTER 2019-10-07 08:57 | Outpatient (CLI) | payer MEDICARE, OTHER, SELFPAY ==
[2019-10-07] VITALS (7 sets, daily range): BP systolic 98–123; BP diastolic 43–73; PULSE 58–63; RESP 15–16; TEMP 36.4; O2SAT 95–100
--- NOTE | 2019-10-07 08:58 | DI.RAD.S_ITS ---
PROCEDURE: PAIN C/T INTERLAMINAR INJECT INDICATIONS: SPINAL STENOSIS FINDINGS: Fluoroscopic spot filming was performed to verify placement of spinal needles at the T9-T10 interlaminar margin near the midline, for translumbar epidural steroid injection level(s), as labeled on the films. Appropriate location(s) of the needle tip(s) was confirmed by injection of iodinated contrast. IMPRESSION: Successful needle tip localization for translaminar epidural steroid injection. Dictated by: Robb Sánchez M.D. on 10/07/2019 at 12:04 Approved by: Robb Sánchez M.D. on 10/07/2019 at 12:05
[2019-10-07] MEDS: fentaNYL 100 MCG/2 ML INJ 50 MCG IV (10:15)
[2019-10-07] MEDS: MIDAZOLAM 5 MG/5 ML VIAL IV (10:15)
[2019-10-07] MEDS: IOPAMIDOL 15 ML VIAL 3 ML INJ (10:21)
[2019-10-07] MEDS: BUPIVACAINE 0.25% (PF) VIAL 2 ML INJ (10:21)
[2019-10-07] MEDS: DEXAMETHASONE 10 MG/ML VIAL 20 MG INJ (10:21)
--- NOTE | 2019-10-07 10:24 | PC.NURSE ---
ASSISTING PT OFF TABLE AND TRANSPORTING TO POST PROC AREA IN STABLE CONDITION. PASSING RN CARE OF PT OFF TO CHRIS Harden RN
--- NOTE | 2019-10-22 13:12 | P.PCN_ITS ---
Procedures Date/Time Date of procedure: 10/07/19 Time of procedure: 13:13 General Procedure description: PREOP DIAGNOSIS 1. CERVICAL STENOSIS, 2. CERVICAL HNP WITH UPPER EXTREMITY RADICULAR FEATURES, POST OP DIAGNOSIS 1. CERVICAL STENOSIS, 2. CERVICAL HNP WITH UPPER EXTREMITY RADICULAR FEATURES, PROCEDURES 1. FLUORSCOPICALLY GUIDED CONTRAST CONTROLLED INTERLAMINAR EPIDURAL STEROID INJECTION - C7/T1 TL MIK, PHYSICIAN: Justyn Diaz DO INDICATIONS: Irasema is referred by Dr. Corea for treatment of Cervical Stenosis. FINDINGS Cervical Stenosis due to disc deterioration and nerve root irritation and nerve root irritation DESCRIPTION OF PROCEDURE Fluoroscopically guided, contrast-controlled C7/T1 translaminar epidural steroid injection with conscious sedation. Following review of allergy and review of potential side effects and complications, including, but not necessarily limited to, infection, allergic reaction, local tissue breakdown, temporary as well as permanent nerve injury, stroke, paralysis, and possible , the patient indicated that patient understood and agreed to proceed. An informed consent document was signed by the patient, witnessed by a nurse, and placed in the patient's chart. Additionally, other treatment options including modalities, medications, and physical therapy were reviewed with the patient. After review of previous anaesthesic history and IV conscious sedation the libertad ent was deemed safe to proceed with todays procedure with IV conscious sedation as ASA class II designation. Safety time-out was performed to confirm patient ID, procedure to be performed and site of procedure. IV sedation was accomplished with a combination of 2mg of Versed and 50mcg of Fentanyl administered by the RN after DO order, titrated to patient comfort during the course of the procedure while the patient remained responsive to all verbal commands. In the prone position, following sterile prep and drape of the cervical region, the C7/T1 translaminar space was identified fluoroscopically. The skin was anesthetized via a 25-gauge 1.5-inch needle with 1% lidocaine solution. At this point, a 25-gauge, 2.5-inch short bevel spinal needle was atraumatically introduced and advanced under fluoroscopic guidance into epidural space at the C7/T1 translaminar space. Depth was confirmed on lateral view. Radiological data, including multiple fluoroscopic views of the cervical spine, reveal a spinal needle at the C7/T1 translaminar space. Lateral views then show placement of the needle in the epidural space. Subsequent views show contrast material flowing superiorly and inferiorly in the epidural space. DSA fluoroscopy with live contrast injection, once again, confirmed no vascular or intrathecal uptake. At this point, using loss of resistance technique with saline and air, the epidural space was entered. Following negative aspiration, injection of approximately 1.5 cc of Isovue-200 with live fluoroscopy in the AP view confirmed epidural flow in the epidural space without vascular or intrathecal uptake observed. Subsequently, a test dose of 1 cc of 1% lidocaine solution was injected and patient was observed for two minutes without signs or symptoms of complications, including abdominal pain, shortness of breath, bilateral upper or lower extremity weakness, nausea and vomiting, prior to steroid injection. At this point, 2cc or 20mg of dexamethasone was then injected without incident. The patient tolerated the procedure well without signs or symptoms of complications prior to transfer to the recovery area for further monitoring The patient was then transferred to the recovery area where they were observed for an appropriate period of time after the injection. The patient reported a VAS score of 6 prior to the procedure and a post-procedure VAS of 0. Total Fluoroscopy Time: seconds Total Conscious Sedation Time: 24min POST OP INSTRUCTIONS The patient was provided a Pain Log to continue to record their response to the target-specific procedure prior to follow-up visit with the referring provider. Additionally, specific post-injection care instructions and a contact number to our office were provided if concerns arise regarding possible complications associated with the procedure are suspected. Justyn Diaz DO Complications: none
== END 2019-10-07 10:54 ==
LOC: RAD 08:57
PROVIDERS: Family Provider Internal Medicine; PCP Internal Medicine; Referring Provider Physical Medicine & Rehabilitation; Visit Provider Physical Medicine & Rehabilitation
DX: M48.03 Spinal stenosis, cervicothoracic region (principal); M50.13 Cervical disc disorder with radiculopathy, cervicothoracic region
CPT/HCPCS: 62321; 99152; J1100; J2250; J3010

== ENCOUNTER → 2019-10-19 10:31 | Outpatient (CLI) | payer MEDICARE, OTHER, SELFPAY ==
[2019-10-19 13:54] LABS: TSH w/ Reflex to FT4 2.13 uIU/mL (0.47-4.68)
== END ==
PROVIDERS: Family Provider Internal Medicine; PCP Internal Medicine; Referring Provider Internal Medicine; Visit Provider Internal Medicine
DX: E03.9 Hypothyroidism, unspecified (principal)
CPT/HCPCS: 36415; 84443

== ENCOUNTER → 2020-01-01 10:17 | Outpatient (CLI) | payer MEDICARE, OTHER, SELFPAY ==
[2020-01-02 23:24] LABS: COVID19 Sendout Not Detected (Not Detect)
== END ==
PROVIDERS: Family Provider Internal Medicine; PCP Internal Medicine; Visit Provider Physician Assistant
DX: Z01.818 Encounter for other preprocedural examination (principal)
CPT/HCPCS: 87635

== ENCOUNTER 2020-01-04 09:19 | Outpatient (CLI) | payer MEDICARE, OTHER, SELFPAY ==
[2020-01-04] VITALS (8 sets, daily range): BP systolic 112–139; BP diastolic 55–70; PULSE 63–79; RESP 12–16; TEMP 36.3; O2SAT 99–100
--- NOTE | 2020-01-04 09:20 | DI.RAD.S_ITS ---
PROCEDURE: PAIN C/T FACET INJ/BLK 1ST L INDICATIONS: SPONDYLOSIS FINDINGS: Fluoroscopic spot filming was performed to verify placement of spinal needles at the right T7, T8, T9, and T10 level(s), as labeled on the films. Appropriate location(s) of the needle tip(s) was confirmed by injection of iodinated contrast. IMPRESSION: Intraprocedural examination within normal limits. Dictated by: Sergio Cali M.D. on 01/04/2020 at 10:03 Approved by: Sergio Cali M.D. on 01/04/2020 at 10:04
[2020-01-04] MEDS: MIDAZOLAM 5 MG/5 ML VIAL IV (10:35)
[2020-01-04] MEDS: fentaNYL 100 MCG/2 ML INJ 50 MCG IV (10:36)
[2020-01-04] MEDS: BUPIVACAINE 0.5% (PF) VIAL 5 ML INJ (10:46)
[2020-01-04] MEDS: LIDOCAINE 1% 20 ML 10 ML INJ (10:46)
--- NOTE | 2020-01-04 10:48 | PC.NURSE ---
ASSISTING PT OFF TABLE AND TRANSPORTING TO POST PROC IN STABLE CONDITION. PASSING CARE OF PT OFF TO BRE PEARL.
--- NOTE | 2020-01-04 10:53 | P.PCN_ITS ---
Procedures Date/Time Date of procedure: 01/04/20 Time of procedure: 10:53 General Procedure description: PREOP DIAGNOSIS 1. FACET ARTHROPATHY 2. AXIAL THORACIC PAIN POST OP DIAGNOSIS 1. FACET ARTHROPATHY 2. AXIAL THORACIC PAIN PROCEDURES 1. FLUOROSCOPICALLY GUIDED, CONTRAST-CONTROLLED RIGHT T7, T8, T9, T10 MBB. PHYSICIAN: Justyn Diaz, DO INDICATIONS Irasema is referred by Dr. Corea for treatment of Axial Neck Pain DESCRIPTION OF PROCEDURE Fluoroscopically guided, contrast-controlled Right T7, T8, T9, T10 Diagnostic Medial Branch Blocks. Following review of allergy and review of potential side effects and complications, including, but not necessarily limited to, infection, allergic reaction, local tissue breakdown, stroke, temporary or permanent nerve injury and paralysis, the patient indicated that the patient understood and agreed to proceed. An informed consent document was signed by the patient, witnessed by a nurse, and placed in the patient's chart. Additionally, other treatment options including medications, modalities, and physical therapy were reviewed with the patient. After review of previous anaesthesic history and IV conscious sedation the patient was deemed safe to proceed with todays procedure with IV conscious sedation as ASA class II designation. Safety time-out was performed to confirm patient ID, procedure to be performed and site of procedure. IV sedation was accomplished with a combination of 3mg of Versed and 50mcg of Fentanyl was administered by the RN after DO order, titrated to patient comfort during the course of the procedure while the patient remained responsive to all verbal commands Time-out was taken to identify the correct patient, procedure and side prior to starting the procedure. Lying in the prone position, the patient was prepped and draped in the usual sterile fashion using Chlorhexaidine scrub and a fenestrated drape. The level was determined under fluoroscopy. The skin was anesthetized via a 25-gauge 1.5-inch needle with 1% lidocaine solution into the corresponding T7, T8, T9, T10 anatomical landmarks. At this point, a 22-gauge short bevel spinal needle was atraumatically introduced and advanced under fluoroscopic guidance to the anatomical pillars. Following negative aspiration, injections of approximately 0.1cc of Isovue 200 confirmed a neurogram placement without vascular uptake. At this point, a total of 1cc of 0.5% was injected without complication into each of the corresponding medial branch anatomical location. The patient tolerated the procedure well without signs or symptoms of complications prior to transfer to the recovery area continued monitoring without incident. The patient was then transferred to the recovery area where they were observed for an appropriate period of time after the injection. The patient reported a VAS score of 7 prior to the procedure and a post- procedure VAS of 1. Total Fluoroscopy Time: 13 seconds Total Conscious Sedation Time: 24 min POST OP INSTRUCTIONS They were provided a Pain Log to continue to record their response to the target-specific procedure prior to their follow-up visit with their referring physician. Additionally, specific post-injection care instructions and a contact number to our office were provided if concerns arise regarding possible complications associated with the procedure are suspected. Complications: none
== END 2020-01-04 11:17 | disposition home or self-care (01) ==
LOC: RAD 09:20
PROVIDERS: Family Provider Internal Medicine; PCP Internal Medicine; Referring Provider Physical Medicine & Rehabilitation; Visit Provider Physical Medicine & Rehabilitation
DX: M47.814 Spondylosis without myelopathy or radiculopathy, thoracic region (principal); M54.6 Pain in thoracic spine
CPT/HCPCS: 64490; 64491; 64492; 99152; J2250; J3010

== ENCOUNTER → 2020-01-17 10:34 | Outpatient (CLI) | payer MEDICARE, OTHER, SELFPAY ==
[2020-01-17 11:23] LABS: Add Manual Diff / Slide Review NO; Basophils Absolute Auto 100 /uL (0-100); Basophils Percent Auto 3.9 % (0-2); Eosinophils Absolute Auto 200 /uL (0-450); Eosinophils Percent Auto 4.9 % (2-4); Hematocrit 40.3 % (36-46); Hemoglobin 13.9 g/dL (12.0-16.0); Lymphocytes Absolute Auto 1500 /uL (1100-4500); Lymphocytes Percent Auto 42.5 % (25-40); Mean Corpuscular HGB Conc 34.3 % (30-36); Mean Corpuscular Hemoglobin 32.6 PG (26-34); Mean Corpuscular Volume 94.8 fL (80-100); Monocytes Absolute Auto 400 /uL (0-900); Monocytes Percent Auto 10.4 % (3-14); Neutrophils Absolute Auto 1400 /uL (1500-7000); Neutrophils Percent Auto 38.3 % (50-75); Platelet Count 160 X10^3/uL (150-400); Red Blood Cell Count 4.26 X10^6/uL (4.0-5.2); Red Cell Distribution Width 13.2 % (11.6-14.8); White Blood Cell Count 3.6 X10^3/uL (4.5-11.0)
[2020-01-17 11:34] LABS: Alanine Aminotransferase 26 IU/L (<35); Albumin 4.5 g/dL (3.5-5.0); Albumin Globulin Ratio 1.7 (1.0-2.8); Alkaline Phosphatase 78 U/L (38-126); Aspartate Aminotransferase 39 IU/L (14-36); BUN Creatinine Ratio 18.2 (6-22); Bilirubin Total 0.5 mg/dL (0.2-1.3); Blood Urea Nitrogen 14 mg/dL (7-17); Calcium 9.6 mg/dL (8.4-10.2); Carbon Dioxide 29 mmol/L (22-32); Chloride 103 mmol/L (98-107); Estimated Glomerular Filt Rate > 60.0 mL/min (>60); Globulin 2.6 g/dL (1.7-4.1); Glucose 96 mg/dL (80-110); HEMOLYSIS < 15 (0-50); Lactate Dehydrogenase 449 U/L (313-618); Potassium 5.1 mmol/L (3.4-5.1); Sodium 137 mmol/L (137-145); Total Protein 7.1 g/dL (6.3-8.2)
== END ==
PROVIDERS: Family Provider Internal Medicine; PCP Internal Medicine; Referring Provider Internal Medicine Hematology & Oncology; Visit Provider Internal Medicine Hematology & Oncology
DX: D72.819 Decreased white blood cell count, unspecified (principal)
CPT/HCPCS: 36415; 80053; 83615; 85025

== ENCOUNTER → 2020-02-09 15:14 | Outpatient (ROUT) | payer MEDICARE, OTHER, SELFPAY ==
[2020-02-09 15:17] LABS: Bacteria Urine None Seen
[2020-02-09 15:35] LABS: Appearance Urine UA CLOUDY; Bilirubin Urine UA NEGATIVE (NEGATIVE); Color Urine UA YELLOW; Glucose Urine UA NEGATIVE (Negative); Ketones Urine UA NEGATIVE (NEGATIVE); Leukocyte Esterase Urine UA NEGATIVE (NEGATIVE); Nitrite Urine UA NEGATIVE (Negative); Occult Blood Urine UA NEGATIVE (Negative); Protein Urine UA NEGATIVE (Negative); Specific Gravity Urine UA 1.025 (1.000-1.035); Urobilinogen Urine UA 0.2 E.U./dL (0.2)
[2020-02-09 15:44] LABS: pH Urine UA 5.5 (4.5-8.0)
[2020-02-09 15:55] LABS: Amorphous Sediment Urine 3+; Culture Indicated Urine Cult Not Indicated; RBC Urine 0-1/HPF (0-5/HPF); Squamous Epithelial Cell Urine 0-1 /HPF (0-5/HPF); WBC Urine 0-1/HPF (0-5/HPF)
[2020-02-09 15:55] LABS: BUN Creatinine Ratio 20.6 (6-22); Blood Urea Nitrogen 14 mg/dL (7-17); Estimated Glomerular Filt Rate > 60.0 mL/min (>60)
== END ==
PROVIDERS: Family Provider Internal Medicine; PCP Internal Medicine; Visit Provider Internal Medicine
DX: R10.2 Pelvic and perineal pain (principal)
CPT/HCPCS: 81001; 82565; 84520

== ENCOUNTER → 2020-02-11 10:19 | Outpatient (CLI) | payer MEDICARE, OTHER, SELFPAY ==
--- NOTE | 2020-02-11 | DI.CT.S_ITS ---
PROCEDURE: CT ABDOMEN PELVIS W CON INDICATIONS: Pelvic and perineal pain TECHNIQUE: After the administration of oral and intravenous contrast, 5 mm thick sections acquired from the diaphragms to the symphysis. 5 mm thick coronal and sagittal reformats were performed. For radiation dose reduction, the following was used: automated exposure control, adjustment of mA and/or kV according to patient size. COMPARISON: [facility], CT, CT ABDOMEN PELVIS W CON, 05/31/2019, 11:49. FINDINGS: Image quality: Excellent. ABDOMEN: Lung bases: Lung bases are clear. Heart size is normal. Solid organs: Liver is normal in size and enhancement. Diffusely decreased hepatic density is present. Gallbladder is within normal limits. Biliary system is non-dilated. Pancreas enhances normally. Spleen is normal in size and enhancement. No adrenal nodules. Kidneys are normal in size and enhancement, without hydronephrosis. Peritoneum and bowel: Stomach, small bowel, and colon loops are normal in caliber and wall thickness. No free fluid or air. Appendix is within normal limits. Nodes and vessels: No retroperitoneal or mesenteric adenopathy. Aorta and inferior vena cava are normal in caliber. Miscellaneous: No ventral hernias. PELVIS: Genitourinary: Bladder wall thickness is normal. Miscellaneous: No inguinal hernias or adenopathy. Bones: No suspicious bony lesions. The L4-L5 fusion has been performed. Mild leftward curvature of the lumbar spine. No vertebral body compression fractures. IMPRESSION: 1. No explanation for pelvic/perineal pain. 2. Normal appendix. 3. Hepatic steatosis. Dictated by: Boris Bledsoe M.D. on 02/11/2020 at 11:44 Approved by: Boris Bledsoe M.D. on 02/11/2020 at 11:47
== END ==
PROVIDERS: Family Provider Internal Medicine; PCP Internal Medicine; Referring Provider Internal Medicine; Visit Provider Internal Medicine
DX: R10.2 Pelvic and perineal pain (principal); K76.0 Fatty (change of) liver, not elsewhere classified
CPT/HCPCS: 74177; Q9967

== ENCOUNTER → 2020-02-22 14:52 | Outpatient (CLI) | payer MEDICARE, OTHER, SELFPAY ==
--- NOTE | 2020-02-22 14:56 | DI.RAD.S_ITS ---
PROCEDURE: XR CERVICAL SPINE 4V OR 5V INDICATIONS: Chronic progressive neck pain TECHNIQUE: 5 views of the cervical spine acquired. COMPARISON: [facility], CR, XR CERVICAL SPINE 4V OR 5V, 01/26/2018, 16:07. FINDINGS: Bones: Postsurgical changes compatible C6-C7 ACDF are stable. Mild C5-C6 and C7-T1 degenerative disc disease. Mild C5-C6, C6-C7 and C7-T1 facet hypertrophy. Mild bilateral C4-C5 and C5-C6 uncovertebral joint hypertrophy. Moderate bilateral C5-C6 neural foraminal narrowing. Soft tissues: No prevertebral soft tissue swelling. IMPRESSION: 1. C6-C7 ACDF. 2. Mild multilevel degenerative disc disease. 3. Mild multilevel facet and uncovertebral arthropathy. 4. Moderate bilateral C5-C6 neural foraminal narrowing. 5. No fracture. No acute osseous lesion. If symptoms and/or clinical suspicion for pathology persists, evaluation with MRI may be helpful for further assessment. Dictated by: Ynes Sanchez MD, PhD on 02/22/2020 at 15:34 Approved by: Ynes Sanchez MD, PhD on 02/22/2020 at 15:37
== END ==
PROVIDERS: Family Provider Internal Medicine; PCP Internal Medicine; Referring Provider Physical Medicine & Rehabilitation; Visit Provider Physical Medicine & Rehabilitation
DX: M48.02 Spinal stenosis, cervical region (principal); M50.322 Other cervical disc degeneration at C5-C6 level; M47.812 Spondylosis without myelopathy or radiculopathy, cervical region; G89.29 Other chronic pain; Z98.1 Arthrodesis status
CPT/HCPCS: 72050

== ENCOUNTER → 2020-04-24 10:00 | Outpatient (CLI) | payer MEDICARE, OTHER, SELFPAY ==
[2020-04-25 12:42] LABS: COVID19 Sendout Not Detected (Not Detect)
== END ==
PROVIDERS: Family Provider Internal Medicine; PCP Internal Medicine; Visit Provider Physician Assistant
DX: Z11.59 Encounter for screening for other viral diseases (principal)
CPT/HCPCS: 87635

== ENCOUNTER 2020-04-27 09:06 | Outpatient (CLI) | payer MEDICARE, OTHER, SELFPAY ==
[2020-04-27] VITALS (10 sets, daily range): BP systolic 107–127; BP diastolic 53–68; PULSE 55–62; RESP 8–21; TEMP 35.9; O2SAT 99–100
--- NOTE | 2020-04-27 09:10 | DI.RAD.S_ITS ---
PROCEDURE: PAIN C/T FACET INJ/BLK 1ST NYA COMPARISON: None. INDICATIONS: SPINAL STENOSIS FINDINGS: These intraprocedural images were performed for intraprocedural localization and submitted for interpretation following the completion of the procedure. On these images, spinal needles are placed at the C5-C6 level on both sides, as labeled on the films. The appropriate positions of the tips of the needles were confirmed by injection of a small amount of iodinated contrast. Please correlate with intraprocedural findings. IMPRESSION: Intraprocedural examination within normal limits. Dictated by: Sergio Cali M.D. on 04/27/2020 at 10:34 Approved by: Sergio Cali M.D. on 04/27/2020 at 10:37
[2020-04-27] MEDS: MIDAZOLAM 5 MG/5 ML VIAL IV (10:31)
[2020-04-27] MEDS: fentaNYL 100 MCG/2 ML INJ 50 MCG IV (10:31)
[2020-04-27] MEDS: DEXAMETHASONE 10 MG/ML VIAL 20 MG INJ (10:38)
[2020-04-27] MEDS: IOPAMIDOL 15 ML VIAL 3 ML INJ (10:38)
[2020-04-27] MEDS: BUPIVACAINE 0.5% (PF) VIAL 2 ML INJ (10:38)
--- NOTE | 2020-04-27 10:52 | P.PCN_ITS ---
Date/Time/Diagnoses Date of procedure: 04/27/20 Time of procedure: 10:52 Pre-procedure diagnosis: 1. FACET ARTHROPATHY 2. AXIAL NECK PAIN Post-procedure diagnosis: same Procedure Notes Procedure: 1. FLUOROSCOPICALLY GUIDED, CONTRAST-CONTROLLED BILATERAL C5/6 FACET JOINT INJECTIONS WITH CONSCIOUS SEDATION. Indications: Irasema is referred by for treatment of Axial Neck Pain Physician: Justyn Diaz Total Fluoroscopy time (seconds): 7 Total sedation minutes: 15 Complications: none Procedure in detail & Post-procedure care: DESCRIPTION OF PROCEDURE Fluoroscopically guided, contrast-controlled Bilateral C5/6 facet joint injections with conscious sedation. Following review of allergy and review of potential side effects and complications, including, but not necessarily limited to, infection, allergic reaction, local tissue breakdown, stroke, temporary or permanent nerve injury and paralysis, the patient indicated that the patient understood and agreed to proceed. An informed consent document was signed by the patient, witnessed by a nurse, and placed in the patient's chart. Additionally, other treatment options including medications, modalities, and physical therapy were reviewed with the patient. After review of previous anaesthesic history and IV conscious sedation the patient was deemed safe to proceed with today?s procedure with IV conscious sedation as ASA class II designation. Safety time-out was performed to confirm patient ID, procedure to be performed and site of procedure. IV sedation was accomplished with a combination of 3mg of Versed and 50mcg of Fentanyl was administered by the RN after DO order, titrated to patient comfort during the course of the procedure while the patient remained responsive to all verbal commands In the prone position, following sterile prep and drape of the cervical spine region, the posterior aspect of the bilateral C5/6 facet joints were identified fluoroscopically. The skin was anesthetized via a 25-gauge 1.5-inch needle with 1% lidocaine solution into the corresponding facet joints. At this point, a 25- gauge 2.5-inch spinal needle was atraumatically introduced and advanced under fluoroscopic guidance into the corresponding facet joints. Following negative aspiration, injections of approximately 0.2-cc of Isovue 200 confirmed interarticular placement without vascular uptake. At this point, a total of 1cc including 0.5cc or 5mg of dexamethasone combined with 0.5cc of 1% lidocaine solution was injected without complication into each of the corresponding facet joints. The procedure tolerated the procedure well without signs or symptoms of complications prior to transfer to the recovery area continued monitoring without incident. The patient was then transferred to the recovery area where they were observed for an appropriate period of time after the injection. The patient reported a VAS score of 7 prior to the procedure and a post- procedure VAS of 0. POST OP INSTRUCTIONS They were provided a Pain Log to continue to record their response to the target-specific procedure prior to their follow-up visit with their referring physician. Additionally, specific post-injection care instructions and a contact number to our office were provided if concerns arise regarding possible complications associated with the procedure are suspected.
== END 2020-04-27 11:53 | disposition home or self-care (01) ==
LOC: RAD 09:08
PROVIDERS: Family Provider Internal Medicine; PCP Internal Medicine; Referring Provider Internal Medicine; Visit Provider Physical Medicine & Rehabilitation
DX: M47.812 Spondylosis without myelopathy or radiculopathy, cervical region (principal); M54.2 Cervicalgia
CPT/HCPCS: 64490; 99152; J1100; J2250; J3010

== ENCOUNTER → 2020-11-20 16:22 | Outpatient (CLI) | payer MEDICARE, OTHER, SELFPAY | PROVIDERS: Family Provider Internal Medicine; PCP Internal Medicine; Visit Provider Student in an Organized Health Care Education/Training Program | DX: N39.0 Urinary tract infection, site not specified (principal) | CPT/HCPCS: 87086 ==

== ENCOUNTER → 2020-12-26 07:08 | Outpatient (CLI) | payer MEDICARE, OTHER, SELFPAY ==
[2020-12-26 11:25] LABS: COVID19 -Nasal RAPID Negative (Negative)
== END ==
PROVIDERS: Family Provider Internal Medicine; PCP Internal Medicine; Visit Provider Physical Medicine & Rehabilitation
DX: Z20.822 Contact with and (suspected) exposure to COVID-19 (principal)
CPT/HCPCS: 87635; C9803

== ENCOUNTER → 2020-12-27 11:23 | Outpatient (CLI) | payer MEDICARE, OTHER, SELFPAY ==
--- NOTE | 2020-12-27 | DI.MG.S_ITS ---
BILATERAL DIGITAL SCREENING MAMMOGRAM 3D/2D WITH CAD: 12/27/2020 CLINICAL: Routine screening. Family history of breast cancer. Comparison is made to exams dated: 06/18/2019 mammogram, 05/14/2018 mammogram - [facility], and 05/26/2017 mammogram - [facility]. There are scattered fibroglandular elements in both breasts. Current study was also evaluated with a Computer Aided Detection (CAD) system. There are benign post operative findings in the right breast. No significant masses, calcifications, or other findings are seen in either breast. There has been no significant interval change. IMPRESSION: BENIGN There is no mammographic evidence of malignancy. A 1 year screening mammogram is recommended. This exam was interpreted at Station ID: [id number]. NOTE: For mammograms, a report in lay terms will be sent to the patient. Approximately 15% of breast malignancies will not be visualized mammographically. In the management of a palpable breast mass, a negative mammogram must not discourage biopsy of a clinically suspicious lesion. Electronically Signed By: Rekha lara/clara:12/27/2020 16:52:53 letter sent: Normal Exam ACR BI-RADS Category 2: Benign Finding(s) [id number]
== END ==
PROVIDERS: Family Provider Internal Medicine; PCP Internal Medicine; Referring Provider Internal Medicine; Visit Provider Internal Medicine
DX: Z12.31 Encounter for screening mammogram for malignant neoplasm of breast (principal); Z80.3 Family history of malignant neoplasm of breast
CPT/HCPCS: 77063; 77067

== ENCOUNTER 2020-12-28 08:01 | Outpatient (CLI) | payer MEDICARE, OTHER, SELFPAY ==
[2020-12-28] VITALS (8 sets, daily range): BP systolic 100–139; BP diastolic 49–62; PULSE 57–62; RESP 12–20; TEMP 36.6; O2SAT 92–100
--- NOTE | 2020-12-28 08:02 | DI.RAD.S_ITS ---
PROCEDURE: PAIN C/T FACET INJ/BLK 1ST NYA COMPARISON: [facility], , PAIN C/T FACET INJ/BLK 1ST [facility]A, 04/27/2020, 10:37. INDICATIONS: SPINAL STENOSIS FINDINGS: Fluoroscopic spot filming was performed to verify placement of spinal needles on both sides at the C5-C6 level, as labeled on the films. Appropriate location of the needle tips was confirmed by injection of iodinated contrast. IMPRESSION: Intraprocedural examination within normal limits. Dictated by: Sergio Cali M.D. on 12/28/2020 at 9:50 Approved by: Sergio Cali M.D. on 12/28/2020 at 9:51
[2020-12-28] MEDS: MIDAZOLAM 5 MG/5 ML VIAL IV (08:50)
[2020-12-28] MEDS: fentaNYL 100 MCG/2 ML INJ 50 MCG IV (08:50)
[2020-12-28] MEDS: BUPIVACAINE 0.5% (PF) VIAL 2 ML INJ (08:53)
[2020-12-28] MEDS: DEXAMETHASONE 10 MG/ML VIAL 20 MG INJ (08:53)
[2020-12-28] MEDS: IOPAMIDOL 15 ML VIAL 3 ML INJ (08:54)
--- NOTE | 2020-12-28 09:07 | P.PCN_ITS ---
Date/Time/Diagnoses Date of procedure: 12/28/20 Time of procedure: 09:07 Pre-procedure diagnosis: 1. FACET ARTHROPATHY 2. AXIAL NECK PAIN Post-procedure diagnosis: same Procedure Notes Procedure: 1. FLUOROSCOPICALLY GUIDED, CONTRAST-CONTROLLED BILATERAL C5/6 FACET JOINT INJECTIONS WITH CONSCIOUS SEDATION. Indications: Irasema is referred by Dr. Corea for treatment of Axial Neck Pain Physician: Justyn Diaz Total Fluoroscopy time (seconds): 10 Total sedation minutes: 13 Complications: none Procedure in detail & Post-procedure care: DESCRIPTION OF PROCEDURE Fluoroscopically guided, contrast-controlled bilateral C5/6 facet joint injections with conscious sedation. Following review of allergy and review of potential side effects and complications, including, but not necessarily limited to, infection, allergic reaction, local tissue breakdown, stroke, temporary or permanent nerve injury and paralysis, the patient indicated that the patient understood and agreed to proceed. An informed consent document was signed by the patient, witnessed by a nurse, and placed in the patient's chart. Additionally, other treatment options including medications, modalities, and physical therapy were reviewed with the patient. After review of previous anaesthesic history and IV conscious sedation the patient was deemed safe to proceed with today?s procedure with IV conscious sedation as ASA class II designation. Safety time-out was performed to confirm patient ID, procedure to be performed and site of procedure. IV sedation was accomplished with a combination of 3mg of Versed and 50mcg of Fentanyl was administered by the RN after DO order, titrated to patient comfort during the course of the procedure while the patient remained responsive to all verbal commands In the prone position, following sterile prep and drape of the cervical spine region, the posterior aspect of the bilateral C5/6 facet joints were identified fluoroscopically. The skin was anesthetized via a 25-gauge 1.5-inch needle with 1% lidocaine solution into the corresponding facet joints. At this point, a 25- gauge 2.5-inch spinal needle was atraumatically introduced and advanced under fluoroscopic guidance into the corresponding facet joints. Following negative aspiration, injections of approximately 0.2-cc of Isovue 200 confirmed interarticular placement without vascular uptake. At this point, a total of 1cc including 0.5 cc or 5mg of dexamethasone combined with 0.5cc of 1% lidocaine solution was injected without complication into each of the corresponding facet joints. The patient tolerated the procedure well without signs or symptoms of complications prior to transfer to the recovery area continued monitoring without incident. The patient was then transferred to the recovery area where they were observed for an appropriate period of time after the injection. The patient reported a VAS score of 7 prior to the procedure and a post- procedure VAS of 0. POST OP INSTRUCTIONS They were provided a Pain Log to continue to record their response to the target-specific procedure prior to their follow-up visit with their referring physician. Additionally, specific post-injection care instructions and a contact number to our office were provided if concerns arise regarding possible complications associated with the procedure are suspected.
== END 2020-12-28 09:36 | disposition home or self-care (01) ==
PROVIDERS: Family Provider Internal Medicine; PCP Internal Medicine; Referring Provider Physical Medicine & Rehabilitation; Visit Provider Physical Medicine & Rehabilitation
DX: M47.812 Spondylosis without myelopathy or radiculopathy, cervical region (principal); M54.2 Cervicalgia
CPT/HCPCS: 64490; 99152; J1100; J2250; J3010

== ENCOUNTER → 2021-02-06 08:24 | Outpatient (CLI) | payer MEDICARE, OTHER, SELFPAY ==
[2021-02-06 12:58] LABS: COVID19 -Nasal RAPID Negative (Negative)
== END ==
PROVIDERS: Family Provider Internal Medicine; PCP Internal Medicine; Visit Provider Physical Medicine & Rehabilitation
DX: Z20.822 Contact with and (suspected) exposure to COVID-19 (principal)
CPT/HCPCS: 87635; C9803

== ENCOUNTER 2021-02-08 08:50 | Outpatient (CLI) | payer MEDICARE, OTHER, SELFPAY ==
[2021-02-08] VITALS (9 sets, daily range): BP systolic 96–137; BP diastolic 46–61; PULSE 57–61; RESP 10–18; TEMP 36.4; O2SAT 99–100
--- NOTE | 2021-02-08 08:53 | DI.RAD.S_ITS ---
PROCEDURE: PAIN C/T INTERLAMINAR INJECT INDICATIONS: SPINAL STENOSIS COMPARISON: [facility], , PAIN C/T INTERLAMINAR INJECT, 10/07/2019, 10:16. FINDINGS: Fluoroscopic spot filming was performed to verify placement of spinal needles at the C6-C7 level(s), as labeled on the films. Appropriate location(s) of the needle tip(s) was confirmed by injection of iodinated contrast. Dictated by: Dhaval Dang M.D. on 02/08/2021 at 10:52 Approved by: Dhaval Dang M.D. on 02/08/2021 at 11:38
[2021-02-08] MEDS: MIDAZOLAM 5 MG/5 ML VIAL IV (10:00)
[2021-02-08] MEDS: fentaNYL 100 MCG/2 ML INJ 50 MCG IV (10:00)
[2021-02-08] MEDS: DEXAMETHASONE 10 MG/ML VIAL 30 MG INJ (10:06)
[2021-02-08] MEDS: BUPIVACAINE 0.25% (PF) VIAL 2 ML INJ (10:06)
[2021-02-08] MEDS: IOPAMIDOL 15 ML VIAL 3 ML INJ (10:06)
--- NOTE | 2021-02-08 10:20 | P.PCN_ITS ---
Date/Time/Diagnoses Date of procedure: 02/08/21 Time of procedure: 10:20 Pre-procedure diagnosis: 1. CERVICAL STENOSIS, 2. CERVICAL HNP WITH UPPER EXTREMITY RADICULAR FEATURES Post-procedure diagnosis: same Procedure Notes Procedure: 1. FLUORSCOPICALLY GUIDED CONTRAST CONTROLLED INTERLAMINAR EPIDURAL STEROID INJECTION - C6/7 TL MIK Indications: Irasema is referred by Dr. Corea for treatment of Cervical HNP with Upper Extremity Paresthesias. Physician: Justyn Diaz Total Fluoroscopy time (seconds): 25 Total sedation minutes: 17 Complications: none Procedure in detail & Post-procedure care: FINDINGS Cervical Stenosis due to disc deterioration and nerve root irritation and nerve root irritation DESCRIPTION OF PROCEDURE Fluoroscopically guided, contrast-controlled C6/7 translaminar epidural steroid injection with conscious sedation. Following review of allergy and review of potential side effects and complications, including, but not necessarily limited to, infection, allergic reaction, local tissue breakdown, temporary as well as permanent nerve injury, stroke, paralysis, and possible , the patient indicated that patient understood and agreed to proceed. An informed consent document was signed by the patient, witnessed by a nurse, and placed in the patient's chart. Additionally, other treatment options including modalities, medications, and physical therapy were reviewed with the patient. After review of previous anaesthesic history and IV conscious sedation the patient was deemed safe to proceed with today?s procedure with IV conscious sedation as ASA class II designation. Safety time-out was performed to confirm patient ID, procedure to be performed and site of procedure. IV sedation was accomplished with a combination of 3mg of Versed and 50mcg of Fentanyl administered by the RN after DO order, titrated to patient comfort during the course of the procedure while the patient remained responsive to all verbal commands. In the prone position, following sterile prep and drape of the cervical region, the C6/7 translaminar space was identified fluoroscopically. The skin was anesthetized via a 25-gauge 1.5-inch needle with 1% lidocaine solution. At this point, a 25-gauge, 2.5-inch short bevel spinal needle was atraumatically introduced and advanced under fluoroscopic guidance into epidural space at the C6/7 translaminar space. Depth was confirmed on lateral view. Radiological data, including multiple fluoroscopic views of the cervical spine, reveal a spinal needle at the C6/7 translaminar space. Lateral views then show placement of the needle in the epidural space. Subsequent views show contrast material flowing superiorly and inferiorly in the epidural space. DSA fluoroscopy with live contrast injection, once again, confirmed no vascular or intrathecal uptake. At this point, using loss of resistance technique with saline and air, the epidural space was entered. Following negative aspiration, injection of approx imately 1.5 cc of Isovue-200 with live fluoroscopy in the AP view confirmed epidural flow in the epidural space without vascular or intrathecal uptake observed. Subsequently, a test dose of 1 cc of 1% lidocaine solution was injected and patient was observed for two minutes without signs or symptoms of complications, including abdominal pain, shortness of breath, bilateral upper or lower extremity weakness, nausea and vomiting, prior to steroid injection. At this point, 3cc or 30mg of dexamethasone was then injected without incident. The patient tolerated the procedure well without signs or symptoms of complications prior to being transferred to the recovery area for further monitoring, The patient was then transferred to the recovery area where they were observed for an appropriate period of time after the injection. The patient reported a VAS score of 6 prior to the procedure and a post-procedure VAS of 0. POST OP INSTRUCTIONS The patient was provided a Pain Log to continue to record their response to the target-specific procedure prior to follow-up visit with the referring provider. Additionally, specific post-injection care instructions and a contact number to our office were provided if concerns arise regarding possible complications associated with the procedure are suspected.
== END 2021-02-08 10:40 | disposition home or self-care (01) ==
LOC: RAD 08:52
PROVIDERS: Family Provider Internal Medicine; PCP Internal Medicine; Referring Provider Physical Medicine & Rehabilitation; Visit Provider Physical Medicine & Rehabilitation
DX: M48.02 Spinal stenosis, cervical region (principal); M50.123 Cervical disc disorder at C6-C7 level with radiculopathy
CPT/HCPCS: 62321; 99152; 99153; J1100; J2250; J3010

== ENCOUNTER → 2021-03-27 08:15 | Outpatient (CLI) | payer MEDICARE, OTHER, SELFPAY ==
[2021-03-27 15:28] LABS: COVID19 -Nasal RAPID Negative (Negative)
== END ==
PROVIDERS: Family Provider Internal Medicine; PCP Internal Medicine; Visit Provider Internal Medicine
DX: Z20.822 Contact with and (suspected) exposure to COVID-19 (principal)
CPT/HCPCS: 87635; C9803

== ENCOUNTER 2021-03-29 08:16 | Outpatient (CLI) | payer MEDICARE, OTHER, SELFPAY ==
[2021-03-29] VITALS (8 sets, daily range): BP systolic 112–127; BP diastolic 49–62; PULSE 60–66; RESP 10–20; TEMP 36.6; O2SAT 95–100
--- NOTE | 2021-03-29 08:17 | DI.RAD.S_ITS ---
PROCEDURE: PAIN C/T FACET INJ/BLK 1ST L INDICATIONS: SPINAL STENOSIS COMPARISON: [facility], , PAIN C/T FACET INJ/BLK 1ST L, 01/04/2020, 9:36. FINDINGS: Fluoroscopic spot filming was performed to verify placement of spinal needles at the C4-C5, C5-C6, and C6-C7 level(s), as labeled on the films. Appropriate location(s) of the needle tip(s) was confirmed by injection of iodinated contrast. IMPRESSION: Intraprocedural examination within normal limits. Dictated by: Sergio Cali M.D. on 04/02/2021 at 9:58 Approved by: Sergio Cali M.D. on 04/02/2021 at 9:58
[2021-03-29] MEDS: fentaNYL 100 MCG/2 ML INJ 50 MCG IV (09:41)
[2021-03-29] MEDS: MIDAZOLAM 5 MG/5 ML VIAL IV (09:45)
[2021-03-29] MEDS: IOPAMIDOL 15 ML VIAL 3 ML INJ (09:46)
[2021-03-29] MEDS: BUPIVACAINE 0.5% (PF) VIAL 2 ML INJ (09:47)
[2021-03-29] MEDS: DEXAMETHASONE 10 MG/ML VIAL 20 MG INJ (09:47)
--- NOTE | 2021-03-29 10:02 | P.PCN_ITS ---
Date/Time/Diagnoses Date of procedure: 03/29/21 Time of procedure: 10:02 Pre-procedure diagnosis: 1. FACET ARTHROPATHY 2. AXIAL NECK PAIN Post-procedure diagnosis: same Procedure Notes Procedure: 1. FLUOROSCOPICALLY GUIDED, CONTRAST-CONTROLLED RIGHT C4/5, C5/6 AND C6/7 FACET JOINT INJECTIONS WITH CONSCIOUS SEDATION. Indications: Irasema is referred by Dr. Corea for treatment of Axial Neck Pain Physician: Justyn Diaz Total Fluoroscopy time (seconds): 9 Total sedation minutes: 13 Complications: none Procedure in detail & Post-procedure care: DESCRIPTION OF PROCEDURE Fluoroscopically guided, contrast-controlled right C4/5, C5/6 and C6/7 facet joint injections with conscious sedation. Following review of allergy and review of potential side effects and complications, including, but not necessarily limited to, infection, allergic reaction, local tissue breakdown, stroke, temporary or permanent nerve injury and paralysis, the patient indicated that the patient understood and agreed to proceed. An informed consent document was signed by the patient, witnessed by a nurse, and placed in the patient's chart. Additionally, other treatment options including medications, modalities, and physical therapy were reviewed with the patient. After review of previous anaesthesic history and IV conscious sedation the patient was deemed safe to proceed with today?s procedure with IV conscious sedation as ASA class II designation. Safety time-out was performed to confirm patient ID, procedure to be performed and site of procedure. IV sedation was accomplished with a combination of 3mg of Versed and 50mcg of Fentanyl was administered by the RN after DO order, titrated to patient comfort during the course of the procedure while the patient remained responsive to all verbal commands In the prone position, following sterile prep and drape of the cervical spine region, the posterior aspect of the right C4/5, C5/6 and C6/7 facet joints were identified fluoroscopically. The skin was anesthetized via a 25-gauge 1.5-inch needle with 1% lidocaine solution into the corresponding facet joints. At this point, a 25-gauge 2.5-inch spinal needle was atraumatically introduced and advanced under fluoroscopic guidance into the corresponding facet joints. Following negative aspiration, injections of approximately 0.2-cc of Isovue 200 confirmed interarticular placement without vascular uptake. At this point, a total of 1cc including 0.5cc or 5 mg of dexamethasone combined with 0.5cc of 1% lidocaine solution was injected without complication into each of the corresponding facet joints. The procedure tolerated the procedure well without signs or symptoms of complications prior to transfer to the recovery area continued monitoring without incident. The patient was then transferred to the recovery area where they were observed for an appropriate period of time after the injection. The patient reported a VAS score of 7 prior to the procedure and a post- procedure VAS of 0. POST OP INSTRUCTIONS They were provided a Pain Log to continue to record their response to the target-specific procedure prior to their follow-up visit with their referring physician. Additionally, specific post-injection care instructions and a contact number to our office were provided if concerns arise regarding possible complications associated with the procedure are suspected.
== END 2021-03-29 10:22 | disposition home or self-care (01) ==
PROVIDERS: Family Provider Internal Medicine; PCP Internal Medicine; Referring Provider Physical Medicine & Rehabilitation; Visit Provider Physical Medicine & Rehabilitation
DX: M47.812 Spondylosis without myelopathy or radiculopathy, cervical region (principal); M54.2 Cervicalgia
CPT/HCPCS: 64490; 64491; 64492; 99152; J1100; J2250; J3010

== ENCOUNTER → 2021-05-03 12:33 | Outpatient (CLI) | payer MEDICARE, OTHER, SELFPAY | PROVIDERS: Family Provider Internal Medicine; PCP Internal Medicine; Referring Provider Physician Assistant; Visit Provider Physician Assistant | DX: R19.7 Diarrhea, unspecified (principal) | CPT/HCPCS: 87045; 87177; 87329; 87493; 87899 ==

== ENCOUNTER → 2021-07-05 10:34 | Outpatient (CLI) | payer MEDICARE, OTHER, SELFPAY ==
[2021-07-07 14:12] LABS: Calprotectin, Stool 54 ug/g (0-120)
== END ==
PROVIDERS: Family Provider Internal Medicine; PCP Internal Medicine; Referring Provider Internal Medicine Gastroenterology; Visit Provider Internal Medicine Gastroenterology
DX: R19.7 Diarrhea, unspecified (principal)
CPT/HCPCS: 83993

== ENCOUNTER → 2021-08-29 17:39 | Outpatient (CLI) | payer MEDICARE, OTHER, SELFPAY ==
--- NOTE | 2021-08-29 17:40 | DI.MRI.S_ITS ---
PROCEDURE: MR LUMBAR SPINE WO CON INDICATIONS: acute lumbar radiculopathy TECHNIQUE: Noncontrast sagittal T1 spin echo and T2 fast echo, sagittal STIR, axial T1 and T2 fast spin echo through the lumbar spine. In cases with scoliosis, additional coronal T2 fast spin echo may be performed. COMPARISON: None. FINDINGS: Postsurgical changes of L4-L5 posterior fixation by means of bilateral rods and pedicle screws with interbody device. Normal lumbar vertebral body height and alignment. No suspicious focal marrow signal abnormality or bone marrow edema. Normal position and appearance of the conus. Regional soft tissues are unremarkable. T12-L1: No spinal canal or neural foraminal stenosis. L1-L2: No spinal canal or neural foraminal stenosis. L2-L3: No spinal canal or neural foraminal stenosis. L3-L4: Disc bulge flattens the ventral thecal sac without mass effect upon the traversing L4 nerve roots. Mild neural foraminal narrowing on the left due to foraminal component of the disc bulge. L4-L5: No spinal canal stenosis. Wide decompression of the spinal canal via laminectomies. Mild right and moderate left neural foraminal stenosis with no evidence of mass effect upon the exiting L4 nerve roots. L5-S1: No spinal canal stenosis despite diffuse disc bulge. No mass effect upon the traversing S1 nerve roots. Mild neural foraminal narrowing on the left. IMPRESSION: No evidence of focal nerve root impingement. Dictated by: Jose Vogt M.D. on 08/30/2021 at 16:06 Approved by: Jose Vogt M.D. on 08/30/2021 at 16:08
== END ==
PROVIDERS: Family Provider Internal Medicine; PCP Internal Medicine; Referring Provider Physical Medicine & Rehabilitation; Visit Provider Physical Medicine & Rehabilitation
DX: M51.26 Other intervertebral disc displacement, lumbar region (principal)
CPT/HCPCS: 72148

== ENCOUNTER → 2021-12-04 10:08 | Outpatient (CLI) | payer MEDICARE, OTHER, SELFPAY ==
[2021-12-04 12:56] LABS: COVID19 -Nasal RAPID Negative (Negative)
== END ==
PROVIDERS: Family Provider Internal Medicine; PCP Internal Medicine; Visit Provider Physical Medicine & Rehabilitation
DX: Z20.822 Contact with and (suspected) exposure to COVID-19 (principal)
CPT/HCPCS: 87635; C9803

== ENCOUNTER 2021-12-06 08:47 | Outpatient (CLI) | payer MEDICARE, OTHER, SELFPAY ==
[2021-12-06] VITALS (9 sets, daily range): BP systolic 104–130; BP diastolic 51–62; PULSE 57–62; RESP 11–24; TEMP 36.2; O2SAT 96–100
--- NOTE | 2021-12-06 08:49 | DI.RAD.S_ITS ---
PROCEDURE: PAIN C/T INTERLAMINAR INJECT INDICATIONS: SPINAL STENOSIS COMPARISON: [facility], XA, PAIN C/T FACET INJ/BLK 1ST L, 03/29/2021, 9:46. [facility], XA, PAIN C/T INTERLAMINAR INJECT, 02/08/2021, 10:07. FINDINGS: Fluoroscopic spot filming was performed to verify placement of a spinal needle at the C6-C7 level, as labeled on the films. Appropriate location of the needle tip was confirmed by injection of iodinated contrast. IMPRESSION: No significant intraprocedural abnormality. Dictated by: Sergio Cali M.D. on 12/06/2021 at 10:04 Approved by: Sergio Cali M.D. on 12/06/2021 at 10:04
[2021-12-06] MEDS: MIDAZOLAM 2 MG/2 ML VIAL IV (10:03)
[2021-12-06] MEDS: IOPAMIDOL 15 ML VIAL 3 ML INJ (10:07)
[2021-12-06] MEDS: DEXAMETHASONE 10 MG/ML VIAL 30 MG INJ (10:08)
[2021-12-06] MEDS: BUPIVACAINE 0.25% (PF) VIAL 2 ML INJ (10:08)
--- NOTE | 2021-12-06 10:21 | P.PCN_ITS ---
Date/Time/Diagnoses Date of procedure: 12/06/21 Time of procedure: 10:21 Pre-procedure diagnosis: 1. CERVICAL STENOSIS, 2. CERVICAL HNP WITH UPPER EXTREMITY RADICULAR FEATURES Post-procedure diagnosis: same Procedure Notes Procedure: 1. FLUORSCOPICALLY GUIDED CONTRAST CONTROLLED INTERLAMINAR EPIDURAL STEROID INJECTION - C6/7 TL MIK Indications: Irasema is referred by Dr. Corea for treatment of Cervical HNP with Upper Extremity Paresthesias. Physician: Justyn Diaz Total Fluoroscopy time (seconds): 27 Total sedation minutes: 13 Complications: none Procedure in detail & Post-procedure care: FINDINGS Cervical Stenosis due to disc deterioration and nerve root irritation and nerve root irritation DESCRIPTION OF PROCEDURE Fluoroscopically guided, contrast-controlled C6/7 translaminar epidural steroid injection with conscious sedation. Following review of allergy and review of potential side effects and complications, including, but not necessarily limited to, infection, allergic reaction, local tissue breakdown, temporary as well as permanent nerve injury, stroke, paralysis, and possible , the patient indicated that patient understood and agreed to proceed. An informed consent document was signed by the patient, witnessed by a nurse, and placed in the patient's chart. Additionally, other treatment options including modalities, medications, and physical therapy were reviewed with the patient. After review of previous anaesthesic history and IV conscious sedation the patient was deemed safe to proceed with today?s procedure with IV conscious sedation as ASA class II designation. Safety time-out was performed to confirm patient ID, procedure to be performed and site of procedure. IV sedation was accomplished with a combination of 2mg of Versed administered by the RN after DO order, titrated to patient comfort during the course of the procedure while the patient remained responsive to all verbal commands. In the prone position, following sterile prep and drape of the cervical region, the C6/7 translaminar space was identified fluoroscopically. The skin was anesthetized via a 25-gauge 1.5-inch needle with 1% lidocaine solution. At this point, a 25-gauge, 2.5-inch short bevel spinal needle was atraumatically introduced and advanced under fluoroscopic guidance into epidural space at the C6/7 translaminar space. Depth was confirmed on lateral view. Radiological data, including multiple fluoroscopic views of the cervical spine, reveal a spinal needle at the C6/7 translaminar space. Lateral views then show placement of the needle in the epidural space. Subsequent views show contrast material flowing superiorly and inferiorly in the epidural space. DSA fluoroscopy with live contrast injection, once again, confirmed no vascular or intrathecal uptake. At this point, using loss of resistance technique with saline and air, the epidural space was entered. Following negative aspiration, injection of approximately 1.5 cc of Isovue-200 with live fluoroscopy in the AP view confirmed epidural flow in the epidural space without vascular or intrathecal uptake observed. Subsequently, a test dose of 1cc of 1% lidocaine solution was injected and patient was observed for two minutes without signs or symptoms of complications, including abdominal pain, shortness of breath, bilateral upper or lower extremity weakness, nausea and vomiting, prior to steroid injection. At this point, 3cc or 30mg of dexamethasone was then injected without incident. The patient tolerated the procedure well without signs or symptoms of complic ations prior to being transferred to the recovery area for further monitoring, The patient was then transferred to the recovery area where they were observed for an appropriate period of time after the injection. The patient reported a VAS score of 6 prior to the procedure and a post-procedure VAS of 0. POST OP INSTRUCTIONS The patient was provided a Pain Log to continue to record their response to the target-specific procedure prior to follow-up visit with the referring provider. Additionally, specific post-injection care instructions and a contact number to our office were provided if concerns arise regarding possible complications associated with the procedure are suspected.
== END 2021-12-06 10:48 | disposition home or self-care (01) ==
LOC: RAD 08:49
PROVIDERS: Family Provider Internal Medicine; PCP Internal Medicine; Referring Provider Physical Medicine & Rehabilitation; Visit Provider Physical Medicine & Rehabilitation
DX: M48.02 Spinal stenosis, cervical region (principal); M50.123 Cervical disc disorder at C6-C7 level with radiculopathy
CPT/HCPCS: 62321; 99152; J1100; J2250

== ENCOUNTER → 2021-12-13 13:11 | Outpatient (CLI) | payer MEDICARE, OTHER, SELFPAY | PROVIDERS: Family Provider Internal Medicine; PCP Internal Medicine; Visit Provider Physician Assistant | DX: J02.9 Acute pharyngitis, unspecified (principal) | CPT/HCPCS: 87070 ==

== ENCOUNTER → 2021-12-14 12:04 | Outpatient (CLI) | payer MEDICARE, OTHER, SELFPAY ==
--- NOTE | 2021-12-14 12:05 | DI.MRI.S_ITS ---
PROCEDURE: MR LUMBAR SPINE WO CON INDICATIONS: LOW BACK PAIN WITH RADICULOPATHY TECHNIQUE: Noncontrast sagittal T1 spin echo and T2 fast echo, sagittal STIR, and T2 fast spin echo through the lumbar spine. In cases with scoliosis, additional coronal T2 fast spin echo may be performed. COMPARISON: [facility], , MR LUMBAR SPINE WO CON, 08/29/2021, 17:49. FINDINGS: Image quality: Excellent. Alignment and Curvature: There is normal bony alignment. Bone Marrow: Postsurgical changes compatible with L4-L5 PLIF and L4 laminectomy. Modic type 2 reactive endplate changes noted adjacent to the L4-L5 disc. No acute vertebral body compression fractures. Spinal Cord: Conus medullaris terminates at the L1-2 disc level. Visualized cord demonstrates normal signal and size. Paraspinous Soft Tissues: No paravertebral masses. T12-L1: Loss of disc signal. No central stenosis. No neural foraminal narrowing. No neural compression. L1-L2: Loss of disc signal. No central stenosis. No neural foraminal narrowing. No neural compression. L2-L3: Loss of disc signal. Mild, diffuse disc bulge. Mild bilateral facet hypertrophy. Mild narrowing of the central canal. Mild left neural foraminal narrowing. No neural compression L3-L4: Loss of disc signal. Mild, diffuse disc bulge. Mild bilateral facet hypertrophy. Mild narrowing of the central canal. Mild left neural foraminal narrowing. No neural compression. L4-L5: Status post fusion. Mild right moderate left facet hypertrophy. No central stenosis. Vhvl-ak-joqwblbo right and moderate left neural foraminal narrowing. No neural compression. L5-S1: Loss of disc signal. Mild, diffuse disc bulge. Mild right and rkwy-kq-trqdzola left facet hypertrophy. No central stenosis. Mild right and zkvl-pw-jwkklsct left neural foraminal narrowing. No neural compression IMPRESSION: 1. Status post L4-L5 fusion. 2. Multilevel degenerative disc disease. 3. Multilevel facet arthropathy. 4. No severe central canal narrowing. New [place] Luz a 5. No severe neural foraminal narrowing. New [place] Luz F 6. No neural compression. Dictated by: Ynes Sanchez MD, PhD on 12/14/2021 at 15:26 Approved by: Ynes Sanchez MD, PhD on 12/14/2021 at 15:29
== END ==
PROVIDERS: Family Provider Internal Medicine; PCP Internal Medicine; Referring Provider Physical Medicine & Rehabilitation; Visit Provider Physical Medicine & Rehabilitation
DX: M51.26 Other intervertebral disc displacement, lumbar region (principal); M48.061 Spinal stenosis, lumbar region without neurogenic claudication; M51.36 Other intervertebral disc degeneration, lumbar region; M51.37 Other intervertebral disc degeneration, lumbosacral region; M47.816 Spondylosis without myelopathy or radiculopathy, lumbar region; M47.817 Spondylosis without myelopathy or radiculopathy, lumbosacral region; Z98.1 Arthrodesis status
CPT/HCPCS: 72148

== ENCOUNTER → 2021-12-26 14:38 | Outpatient (CLI) | payer MEDICARE, OTHER, SELFPAY ==
--- NOTE | 2021-12-26 14:40 | DI.RAD.S_ITS ---
PROCEDURE: XR LUMBAR SPINE MIN 4V INDICATIONS: LBP with radic TECHNIQUE: 4 views of the lumbar spine were acquired, including bilateral oblique views. COMPARISON: [facility], MR, MR LUMBAR SPINE WO CON, 12/14/2021, 12:46. [facility], CR, XR LUMBAR SPINE MIN 4V, 07/21/2018, 15:01. FINDINGS: Bones: 5 nonrib-bearing vertebrae are present. L4-L5 bilateral pedicle screw fixation. L4-L5 ankylosis. Hardware is unchanged. No hardware fracture. Mild bony neural foraminal narrowing at L4-L5 and L5-S1. Facet joint hypertrophy. There is normal bony alignment. No vertebral body compression fractures. No suspicious bony lesions. Soft tissues: Overlying bowel gas pattern is normal. No suspicious soft tissue calcifications. Clip overlying the left pelvis. Oblique images: No pars defects. IMPRESSION: L4-L5 pedicle screw fixation is stable. No compression fracture. Dictated by: Jamison Humphreys M.D. on 12/26/2021 at 16:44 Approved by: Jamison Humphreys M.D. on 12/26/2021 at 16:47
== END ==
PROVIDERS: Family Provider Internal Medicine; PCP Internal Medicine; Referring Provider Physical Medicine & Rehabilitation; Visit Provider Physical Medicine & Rehabilitation
DX: M51.16 Intervertebral disc disorders with radiculopathy, lumbar region (principal); M47.26 Other spondylosis with radiculopathy, lumbar region; M48.061 Spinal stenosis, lumbar region without neurogenic claudication; M47.812 Spondylosis without myelopathy or radiculopathy, cervical region; M50.20 Other cervical disc displacement, unspecified cervical region; M47.814 Spondylosis without myelopathy or radiculopathy, thoracic region; Z98.1 Arthrodesis status
CPT/HCPCS: 72110; 99214

== ENCOUNTER → 2021-12-28 13:14 | Outpatient (CLI) | payer MEDICARE, OTHER, SELFPAY ==
[2021-12-28 14:31] LABS: BUN Creatinine Ratio 14.3 (6-22); Blood Urea Nitrogen 11 mg/dL (7-17); Calcium 8.5 mg/dL (8.4-10.2); Carbon Dioxide 30 mmol/L (22-32); Chloride 102 mmol/L (98-107); Estimated Glomerular Filt Rate > 60 mL/min (>60); Glucose 79 mg/dL (80-110); HEMOLYSIS < 15 (0-50); Potassium 4.1 mmol/L (3.4-5.1); Sodium 137 mmol/L (137-145)
== END ==
PROVIDERS: Family Provider Internal Medicine; PCP Internal Medicine; Referring Provider Internal Medicine Gastroenterology; Visit Provider Internal Medicine Gastroenterology
DX: Z01.812 Encounter for preprocedural laboratory examination (principal)
CPT/HCPCS: 36415; 80048

== ENCOUNTER 2022-01-01 09:59 | Outpatient (CLI) | payer MEDICARE, OTHER, SELFPAY ==
[2022-01-01] VITALS (7 sets, daily range): BP systolic 100–144; BP diastolic 44–63; PULSE 52–68; RESP 12–20; TEMP 36.4; O2SAT 96–100
--- NOTE | 2022-01-01 10:01 | DI.RAD.S_ITS ---
PROCEDURE: PAIN L/SI FACET INJ/BLK 1STL INDICATIONS: SPONDYLOSIS COMPARISON: [facility], CR, XR LUMBAR SPINE MIN 4V, 12/26/2021, 14:31. FINDINGS: Fluoroscopic spot filming was performed to verify placement of a spinal needle at the L5-S1 level, as labeled on the films. Appropriate location of the needle tip was confirmed by injection of iodinated contrast. IMPRESSION: No significant intraprocedural abnormality. Dictated by: Sergio Cali M.D. on 01/01/2022 at 11:48 Approved by: Sergio Cali M.D. on 01/01/2022 at 11:48
[2022-01-01 10:41] LABS: COVID19 -Nasal RAPID Negative (Negative)
[2022-01-01] MEDS: MIDAZOLAM 2 MG/2 ML VIAL IV (11:41)
[2022-01-01] MEDS: BETAMETHASONE 30 MG/5 ML MDV 12 MG INJ (11:43)
[2022-01-01] MEDS: IOPAMIDOL 15 ML VIAL 3 ML INJ (11:44)
[2022-01-01] MEDS: BUPIVACAINE 0.5% (PF) VIAL 2 ML INJ (11:44)
--- NOTE | 2022-01-01 11:56 | P.PCN_ITS ---
Date/Time/Diagnoses Date of procedure: 01/01/22 Time of procedure: 11:57 Pre-procedure diagnosis: 1. FACET ARTHROPATHY, 2. AXIAL LBP, 3. MULTILEVEL DDD Post-procedure diagnosis: same Procedure Notes Procedure: 1. FLUOROSCOPICALLY GUIDED CONTRAST CONTROLLED FACET JOINT INJECTIONS RIGHT L5/S1 Indications: Irasema is referred by Dr. Corea for treatment of Axial LBP Physician: Justyn Diaz Total Fluoroscopy time (seconds): 4 Total sedation minutes: 7 Complications: none Procedure in detail & Post-procedure care: FINDINGS Multilevel Facet Arthropathy with Clinically significant axial LBP DESCRIPTION OF PROCEDURE Fluoroscopically guided, contrast-controlled right L5/S1 facet joint injections. Following review of allergy and review of potential side effects and compli cations, including, but not necessarily limited to, infection, allergic reaction, local tissue breakdown, stroke, temporary or permanent nerve injury, paralysis, and possible , the patient indicated that the patient understood and agreed to proceed. An informed consent document was signed by the patient, witnessed by a nurse, and placed in the patient's chart. Additionally, other treatment options including medications, modalities, and physical therapy were reviewed with the patient. After review of previous anaesthesic history and IV conscious sedation the patient was deemed safe to proceed with today?s procedure with IV conscious sedation as ASA class II designation. Safety time-out was performed to confirm patient ID, procedure to be performed and site of procedure. IV sedation consisting of 2mg of Versed was administered by the RN after DO order, titrated to patient comfort during the course of the procedure while the patient remained responsive to all verbal commands. In the prone position, following sterile prep and drape of the lumbar region, the posterior aspect of the right L5/S1 facet joints were identified fluoroscopically. The skin was anesthetized via a 25-gauge 1.5-inch needle with 1% lidocaine solution into the corresponding facet joints. At this point, a 22- gauge 3.5-inch spinal needle was atraumatically introduced and advanced under fluoroscopic guidance into the corresponding facet joints. Following negative aspiration, injections of approximately 0.2-cc of Isovue 200 confirmed interarticular placement without vascular uptake. Radiological data, including multiple fluoroscopic views of the lumbosacral spine, reveal a spinal needle at the right L5/S1 facet joints. Subsequent views show flow of contrast material both superiorly and inferiorly within the joint space without vascular or intrathecal uptake. At this point, a total of 0.5cc including a mixture of 0.25cc Marcaine and 0.25cc betamethasone was injected without complication into each of the corresponding facet joints. The procedure tolerated the procedure well without signs or symptoms of complications prior to transfer to the recovery area continued monitoring wi thout incident. The patient was then transferred to the recovery area where they were observed for an appropriate period of time after the injection. The patient reported a VAS score of 7 prior to the procedure and a post-procedure VAS of 0. POST OP INSTRUCTIONS The patient was provided a Pain Log to continue to record their response to the target-specific procedure prior to follow-up visit with their referring physician. Additionally, specific post-injection care instructions and a contact number to our office were provided if concerns arise regarding possible c omplications associated with the procedure are suspected.
== END 2022-01-01 12:09 | disposition home or self-care (01) ==
LOC: RAD 10:00
PROVIDERS: Family Provider Internal Medicine; PCP Internal Medicine; Referring Provider Physical Medicine & Rehabilitation; Visit Provider Physical Medicine & Rehabilitation
DX: M47.816 Spondylosis without myelopathy or radiculopathy, lumbar region (principal); Z20.822 Contact with and (suspected) exposure to COVID-19
CPT/HCPCS: 64493; 87635; J0702; J2250

== ENCOUNTER → 2022-01-08 13:36 | Outpatient (CLI) | payer MEDICARE, OTHER, SELFPAY ==
--- NOTE | 2022-01-08 | DI.MG.S_ITS ---
BILATERAL DIGITAL SCREENING MAMMOGRAM 3D/2D WITH CAD: 01/08/2022 CLINICAL: Routine screening. Family history of breast cancer. Comparison is made to exams dated: 12/27/2020 mammogram, 06/18/2019 mammogram, and 05/14/2018 mammogram - [facility]. There are scattered fibroglandular elements in both breasts. Current study was also evaluated with a Computer Aided Detection (CAD) system. There is a possible new focal asymmetry in the left breast at 11 o'clock anterior depth. No other significant masses, calcifications, or other findings are seen in either breast. IMPRESSION: INCOMPLETE: NEEDS ADDITIONAL IMAGING EVALUATION The possible new focal asymmetry in the left breast is indeterminate. Additional views with possible ultrasound are recommended. This exam was interpreted at Station ID: [id number]. NOTE: For mammograms, a report in lay terms will be sent to the patient. Approximately 15% of breast malignancies will not be visualized mammographically. In the management of a palpable breast mass, a negative mammogram must not discourage biopsy of a clinically suspicious lesion. Electronically Signed By: Bong [email or web address]:01/08/2022 14:57:25 letter sent: Additional Imaging Needed ACR BI-RADS Category 0: Incomplete [id number]
--- NOTE | 2022-01-08 | DI.CT.S_ITS ---
PROCEDURE: CT ABDOMEN PELVIS W CON INDICATIONS: Abdominal distension (gaseous) TECHNIQUE: After the administration of oral and intravenous contrast, axial sections were acquired from the lung bases to the pubic symphysis. Coronal and sagittal reformats were performed. For radiation dose reduction, the following was used: automated exposure control, adjustment of mA and/or kV according to patient size. COMPARISON:[facility], CT, CT ABDOMEN PELVIS W CON, 02/11/2020, 11:06. FINDINGS: Image quality: Excellent. Lung bases: Unremarkable. Heart: No significant findings. ABDOMEN: Liver: The liver is diffusely hypodense suggesting fatty infiltration. Gallbladder: Unremarkable. Biliary ducts: Unremarkable. Pancreas: Unremarkable. Spleen: Unremarkable. Adrenal Glands: Unremarkable. Kidneys and Ureters: Unremarkable. Stomach and Bowel: Stomach, small bowel loops, and colon are unremarkable. There are scattered sigmoid diverticula. No evidence for diverticulitis. Peritoneum: No abnormal intraperitoneal fluid. No free air. Ventral Wall: No hernia. Abdominal Nodes: No retroperitoneal or mesenteric adenopathy by size criteria. Vessels: Aorta and inferior vena cava are normal in size. PELVIS: Pelvic Organs: Unremarkable. Bladder: Unremarkable. Pelvic Nodes: No enlarged lymph nodes. Miscellaneous: No inguinal hernias are seen. Bones: Unremarkable. IMPRESSION: 1. No acute intra-abdominal findings. Findings to explain patient's symptoms. 2. Hepatic steatosis. 3. Diverticulosis. No acute diverticulitis. Dictated by: Elena Walls M.D. on 01/08/2022 at 16:47 Approved by: Elena Walls M.D. on 01/08/2022 at 16:51
== END ==
PROVIDERS: Family Provider Internal Medicine; PCP Internal Medicine; Referring Provider Internal Medicine; Visit Provider Internal Medicine
DX: Z12.31 Encounter for screening mammogram for malignant neoplasm of breast (principal); Z80.3 Family history of malignant neoplasm of breast; R14.0 Abdominal distension (gaseous); K59.00 Constipation, unspecified; K21.9 Gastro-esophageal reflux disease without esophagitis; K57.30 Diverticulosis of large intestine without perforation or abscess without bleeding; K76.0 Fatty (change of) liver, not elsewhere classified
CPT/HCPCS: 74177; 77063; 77067; Q9967

== ENCOUNTER → 2022-01-28 10:43 | Outpatient (CLI) | payer MEDICARE, OTHER, SELFPAY ==
[2022-01-28 13:00] LABS: COVID19 -Nasal RAPID Negative (Negative)
== END ==
PROVIDERS: Family Provider Internal Medicine; PCP Internal Medicine; Visit Provider Physical Medicine & Rehabilitation
DX: Z20.822 Contact with and (suspected) exposure to COVID-19 (principal)
CPT/HCPCS: 87635; C9803

== ENCOUNTER 2022-01-29 08:19 | Outpatient (CLI) | payer MEDICARE, OTHER, SELFPAY ==
[2022-01-29] VITALS (10 sets, daily range): BP systolic 105–134; BP diastolic 55–66; PULSE 55–66; RESP 9–16; TEMP 36.2; O2SAT 95–100
--- NOTE | 2022-01-29 08:22 | DI.RAD.S_ITS ---
PROCEDURE: PAIN C/T FACET INJ/BLK 1ST L INDICATIONS: STENOSIS COMPARISON: None. FINDINGS: Fluoroscopic spot filming was performed to verify placement of spinal needles at the right C4-C5, C5-C6 and C6-C7 facets as labeled on the films. Appropriate location(s) of the needle tip(s) was confirmed by injection of iodinated contrast. IMPRESSION: Access needles at the right C4-C5, C5-C6 and C6-C7 facets for facet joint injection. Dictated by: Ynes Sanchez MD, PhD on 01/29/2022 at 11:28 Approved by: Ynes Sanchez MD, PhD on 01/29/2022 at 11:29
[2022-01-29] MEDS: BUPIVACAINE 0.5% (PF) VIAL 2 ML INJ (09:50)
[2022-01-29] MEDS: DEXAMETHASONE 10 MG/ML VIAL 30 MG INJ (09:50)
[2022-01-29] MEDS: IOPAMIDOL 15 ML VIAL 3 ML INJ (09:50)
[2022-01-29] MEDS: MIDAZOLAM 2 MG/2 ML VIAL 4 MG IV (09:54)
--- NOTE | 2022-01-29 10:05 | P.PCN_ITS ---
Date/Time/Diagnoses Date of procedure: 01/29/22 Time of procedure: 10:05 Pre-procedure diagnosis: 1. FACET ARTHROPATHY 2. AXIAL NECK PAIN Post-procedure diagnosis: same Procedure Notes Procedure: 1. FLUOROSCOPICALLY GUIDED, CONTRAST-CONTROLLED RIGHT C4/5, C5/6 AND C6/7 FACET JOINT INJECTIONS WITH CONSCIOUS SEDATION. Indications: Irasema is referred by Dr. Corea for treatment of Axial Neck Pain Physician: Justyn Diaz Total Fluoroscopy time (seconds): 11 Total sedation minutes: 19 Complications: none Procedure in detail & Post-procedure care: DESCRIPTION OF PROCEDURE Fluoroscopically guided, contrast-controlled right C4/5, C5/6 and C6/7 facet joint injections with conscious sedation. Following review of allergy and review of potential side effects and complications, including, but not necessarily limited to, infection, allergic reaction, local tissue breakdown, stroke, temporary or permanent nerve injury and paralysis, the patient indicated that the patient understood and agreed to proceed. An informed consent document was signed by the patient, witnessed by a nurse, and placed in the patient's chart. Additionally, other treatment options including medications, modalities, and physical therapy were reviewed with the patient. After review of previous anaesthesic history and IV conscious sedation the patient was deemed safe to proceed with today?s procedure with IV conscious s edation as ASA class II designation. Safety time-out was performed to confirm patient ID, procedure to be performed and site of procedure. IV sedation was accomplished with a combination of 4mg of Versed was administered by the RN after DO order, titrated to patient comfort during the course of the procedure while the patient remained responsive to all verbal commands In the prone position, following sterile prep and drape of the cervical spine region, the posterior aspect of the right C4/5, C5/6 and C6/7 facet joints were identified fluoroscopically. The skin was anesthetized via a 25-gauge 1.5-inch needle with 1% lidocaine solution into the corresponding facet joints. At this point, a 25-gauge 2.5-inch spinal needle was atraumatically introduced and advanced under fluoroscopic guidance into the corresponding facet joints. Following negative aspiration, injections of approximately 0.2-cc of Isovue 200 confirmed interarticular placement without vascular uptake. At this point, a total of 1 cc including 0.5 cc or 5 mg of dexamethasone combined with 0.5 cc of 1% lidocaine solution was injected without complication into each of the corresponding facet joints. The procedure tolerated the procedure well without signs or symptoms of complications prior to transfer to the recovery area continued monitoring without incident. The patient was then transferred to the recovery area where they were observed for an appropriate period of time after the injection. The patient reported a VAS score of 7 prior to the procedure and a post- procedure VAS of 0. POST OP INSTRUCTIONS They were provided a Pain Log to continue to record their response to the target-specific procedure prior to their follow-up visit with their referring physician. Additionally, specific post-injection care instructions and a contact number to our office were provided if concerns arise regarding possible complications associated with the procedure are suspected.
== END 2022-01-29 10:28 | disposition home or self-care (01) ==
LOC: RAD 08:21
PROVIDERS: Family Provider Internal Medicine; PCP Internal Medicine; Referring Provider Physical Medicine & Rehabilitation; Visit Provider Physical Medicine & Rehabilitation
DX: M47.812 Spondylosis without myelopathy or radiculopathy, cervical region (principal)
CPT/HCPCS: 64490; 64491; 64492; 99152; J1100; J2250

== ENCOUNTER → 2022-02-06 12:02 | Outpatient (CLI) | payer MEDICARE, OTHER, SELFPAY ==
--- NOTE | 2022-02-06 | DI.MG.S_ITS ---
UNILATERAL LEFT DIGITAL DIAGNOSTIC MAMMOGRAM 3D/2D WITH ADDITIONAL VIEWS: 02/06/2022 CLINICAL: Additional evaluation requested from prior study. Comparison is made to exams dated: 01/08/2022 mammogram, 12/27/2020 mammogram, 06/18/2019 mammogram, and 05/14/2018 mammogram - [facility]. There are scattered fibroglandular elements in left breast. There is a possible fat containing focal asymmetry in the left breast at 11 o'clock anterior depth. This is less prominent. No other significant masses or calcifications are seen in the breast. IMPRESSION: INCOMPLETE: NEEDS ADDITIONAL IMAGING EVALUATION The possible fat containing focal asymmetry in the left breast resembles fibroglandular tissue and is indeterminate. An ultrasound is recommended. Based on the Tyrer Cuzick model (a risk assessment model) the patient's lifetime risk is 1.7% and her 10 year risk is 1.6%. According to the ACR, ACS, and NCCN guidelines, an annual breast MRI exam along with mammogram is recommended if the patient's lifetime risk is 20% or greater. This exam was interpreted at Station ID: [id number]. NOTE: For mammograms, a report in lay terms will be sent to the patient. Approximately 15% of breast malignancies will not be visualized mammographically. In the management of a palpable breast mass, a negative mammogram must not discourage biopsy of a clinically suspicious lesion. Electronically Signed By: Bong mcqueen/clara:02/06/2022 19:44:53 ACR BI-RADS Category 0: Incomplete 3340F
--- NOTE | 2022-02-06 | DI.US.S_ITS ---
LIMITED ULTRASOUND OF LEFT BREAST AND AXILLA: 02/06/2022 CLINICAL: Patient returns today to evaluate an asymmetry in the left breast. Comparison is made to exams dated: 02/06/2022 mammogram, 01/08/2022 mammogram, 12/27/2020 mammogram, 07/27/2019 breast MRI, 06/18/2019 ultrasound, and 06/18/2019 mammogram - [facility]. Color flow ultrasound of the left breast 11-12 o'clock, and axilla regions was performed. French scale images of the real-time examination were reviewed. No significant abnormalities were seen sonographically in the left axilla. An oval isoechoic area measuring 0.8 x 0.5 x 0.9 cm is seen in the left breast at the 11 o'clock position 1.5 cm from the nipple with prominent posterior shadowing. No discrete mass is seen. No significant vascularity is seen. This finding may correspond with the mammographic abnormality that appears less prominent on today's exam. Additional 0.4 x 0.4 x 0.5 cm ill-defined hypoechoic lesion is seen in the left breast at the 12 o'clock position 1 cm from the nipple. IMPRESSION: PROBABLY BENIGN Left breast 0.9 cm shadowing area in the left breast 11 o'clock position anterior depth has a differential diagnosis of fibrous tissue, fat lobule, fibrocystic change, or solid mass among other etiologies, and is probably benign. Incidental left breast 0.5 cm hypoechoic lesion at the 12 o'clock position anterior depth is nonspecific and may represent fibroglandular tissue, and is probably benign. Recommend follow up left breast diagnostic mammogram and ultrasound in 6 months for further evaluation. A follow-up left mammogram and an ultrasound in 6 months is recommended to demonstrate stability. This exam was interpreted at Station ID: [id number]. Electronically Signed By: Bong mcqueen/clara:02/06/2022 19:56:28 letter sent: Followup Recommended Ultrasound BI-RADS: 3 Probably benign
== END ==
PROVIDERS: Family Provider Internal Medicine; PCP Internal Medicine; Referring Provider Internal Medicine; Visit Provider Internal Medicine
DX: R92.8 Other abnormal and inconclusive findings on diagnostic imaging of breast (principal); N63.25 Unspecified lump in the left breast, overlapping quadrants; N64.89 Other specified disorders of breast
CPT/HCPCS: 76642; 77065; G0279

== ENCOUNTER 2022-04-16 11:23 | Emergency (ER) | payer MEDICARE, OTHER, SELFPAY ==
[2022-04-16 11:33] VITALS: BP 113/55; PULSE 72; RESP 17; TEMP 36.6; O2SAT 99; BMI 21.6
--- NOTE | 2022-04-16 11:37 | DI.RAD.S_ITS ---
PROCEDURE: XR HIP W PEL IF DONE RT 2V INDICATIONS: hip pain TECHNIQUE: AP pelvis with lateral view(s) of the right hip(s). COMPARISON: None. FINDINGS: Bones: No fractures or dislocations. Pelvic ring appears intact. No suspicious bony lesions. Soft tissues: The visualized bowel gas pattern is normal. No suspicious soft tissue calcifications. IMPRESSION: No acute radiographic findings. If pain persists, followup imaging in 5-7 days is recommended to exclude occult fracture. Dictated by: Elena Walls M.D. on 04/16/2022 at 12:08 Approved by: Elena Walls M.D. on 04/16/2022 at 12:09
--- NOTE | 2022-04-16 12:32 | ED.EXTPRO ---
HPI - Extremity Problem <Luis Grijalva PA-C - Last Filed: 04/16/22 12:38> General Chief complaint: Extremity Problem,Nontraumatic Stated complaint: Right hip pain 3 days- no fall Time Seen by Provider: 04/16/22 12:00 Source: patient Mode of arrival: Ambulatory History of Present Illness HPI Narrative: 77-year-old female with past medical history spinal stenosis presents to the ED with 2 weeks of worsening right-sided hip pain. Patient denies any trauma. Patient endorses that her right hip has been painful for several months, however 2 weeks ago started worsening. Patient states that it is painful to bear weight and walk on that right hip. Patient denies numbness, tingling, weakness. Patient denies prior history of arthritis. Patient denies urinary hesitancy, saddle paresthesias, urinary incontinence, bowel incontinence. Related Data Home Medications Medication Instructions Recorded Confirmed [STOOL SOFTENER] 1 dose PO PRN PRN Constipation ##0 07/03/17 12/26/21 cholecalciferol (vitamin D3) 50 2,000 iu PO QDAY ##0 07/03/17 12/26/21 mcg (2,000 unit) capsule (Vitamin D3) gabapentin 600 mg tablet 600 mg PO TID 01/19/18 04/16/22 tramadol 37.5 mg-acetaminophen 325 1 tab PO Q4-6H PRN Pain, Moderate 01/19/18 04/16/22 mg tablet cyanocobalamin (vitamin B-12) 1 ml PO DAILY 01/04/19 12/26/21 1,000 mcg/mL oral drops (Vitamin B-12) folic acid 1 mg tablet 1 mg DAILY 01/04/19 12/26/21 levothyroxine 75 mcg tablet 75 mcg PO DAILY 04/12/21 04/16/22 atorvastatin 20 mg tablet 20 mg PO BEDTIME 12/26/21 04/16/22 omeprazole 40 mg capsule,delayed 40 mg PO DAILY 12/26/21 12/26/21 release tobramycin 0.3 %-dexamethasone 0.1 1 drp EYE-BOTH ONCE 12/26/21 12/26/21 % eye drops,suspension Previous Rx's Medication Instructions Recorded trazodone 100 mg tablet 100 mg PO BEDTIME PRN insomnia #60 11/19/21 tabs methylprednisolone 4 mg tablets in 4 mg PO DAILY pain #21 ea 08/18/22 a dose pack (Medrol (Cristobal)) cyclobenzaprine 10 mg tablet 10 mg PO TID PRN muscle spasm 7 04/16/22 days #21 tabs Allergies Allergy/AdvReac Type Severity Reaction Status Date / Time Penicillins [PENICILLINS] Allergy Intermediate hives Verified 04/16/22 11:35 Review of Systems <Luis Grijalva PA-C - Last Filed: 04/16/22 12:38> Review of Systems ROS Unobtainable: All systems reviewed & are unremarkable except as noted in HPI and below Constitutional Constitutional: Denies chills, Denies fatigue, Denies fever(s), Denies frequent falls, Denies lethargy and Denies weakness Eyes Eyes: Denies change in vision, Denies eye discharge, Denies irritation and Denies loss of vision ENT Ears, Nose, Mouth, and Throat: Denies change in voice, Denies dizziness, Denies neck pain, Denies sore throat and Denies throat swelling Cardiovascular Cardiovascular: Denies chest pain, Denies irregular heart rhythm, Denies lightheadedness, Denies palpitations, Denies dyspnea, Denies dyspnea on exertion and Denies orthopnea Respiratory Respiratory: Denies cough, Denies dyspnea, Denies dyspnea on exertion and Denies wheezing Gastrointestinal Gastrointestinal: Denies abdominal pain, Denies change in bowel habits, Denies diarrhea, Denies nausea and Denies vomiting Genitourinary Genitourinary: Denies hematuria, Denies flank pain, Denies urinary incontinence and Denies urinary urgency Musculoskeletal Musculoskeletal: Denies back pain, Denies muscle weakness, Denies neck pain, Denies numbness and Denies tingling Comments: Right hip pain Integumentary/Breasts Skin/Breast: Denies pruritus, Denies erythema, Denies rash and Denies wounds Neurologic Neurologic: Denies behavioral changes, Denies confusion, Denies dizziness, Denies frequent falls, Denies loss of vision, Denies numbness, Denies tingling and Denies weakness Psychiatric Psychiatric: Denies anxiety, Denies behavioral changes, Denies confusion, Denies depression, Denies homicidal ideation and Denies suicidal ideation Endocrine Endocrine: Denies fatigue, Denies flushing and Denies palpitations Hematologic/Lymphatic Hematologic/Lymphatic: Denies easy bruising Allergic/Immunologic Allergic/Immunologic: Denies urticaria, Denies throat swelling and Denies wheezing Patient History <Lius Grijalva PA-C - Last Filed: 04/16/22 12:38> Medical History Arthropathy of thoracic facet joint Cervical radicular pain Facet arthropathy, cervical Foraminal stenosis of lumbar region Foraminal stenosis of thoracic region HNP (herniated nucleus pulposus), cervical HNP (herniated nucleus pulposus), lumbar Low back strain Surgical History H/O hysterectomy for benign disease History of lumbar fusion Family History Brother Age: 76 Essential hypertension, hypertension with unspecified goal High cholesterol Brother Heart disease Essential hypertension, hypertension with unspecified goal High cholesterol Father Heart disease Diabetes mellitus Essential hypertension, hypertension with unspecified goal High cholesterol Grandmother Heart disease Cerebrovascular accident (CVA), unspecified mechanism Mother Heart disease Essential hypertension, hypertension with unspecified goal High cholesterol Mental health problem Cerebrovascular accident (CVA), unspecified mechanism Sister Age: 85 Heart disease Essential hypertension, hypertension with unspecified goal High cholesterol Cerebrovascular accident (CVA), unspecified mechanism Social History Smoking Status: Never smoker Smoking Status: Never smoker alcohol intake frequency: a few times a week Substance Use Type: does not use Exam <Luis Grijalva PA-C - Last Filed: 04/16/22 12:38> Narrative Exam Narrative: Const General:?cooperative, healthy appearing and comfortable [facility] Head:?normal to inspection Ears:?hearing grossly normal bilaterally Nose:?external nose normal Face and sinus:?normal facial exam and sinuses nontender Mouth:?oral mucosae normal Throat:?posterior oropharynx normal Eyes General:?appearance normal, both eyes and all related structures Neck Neck:?normal visual inspection and no lymphadenopathy noted Resp Effort & Inspection:?normal respiratory effort Auscultation:?clear to auscultation bilaterally Cardio Rate:?regular rate Rhythm:?regular rhythm Musculoskeletal No bony tenderness to palpation. Strength and sensation intact. Full range of motion. Patient is able to walk, however appears painful to bear weight on the right hip. Patient is neurovascularly intact. Neuro General:?patient alert, patient awake and patient oriented x3 Initial Vital Signs Initial Vital Signs: Vital Signs Temperature 98 F 04/16/22 11:33 Pulse Rate 72 04/16/22 11:33 Respiratory Rate 17 04/16/22 11:33 Blood Pressure 113/55 L 04/16/22 11:33 Pulse Oximetry 99 04/16/22 11:33 Oxygen Delivery Method 04/16/22 11:33 <Petra Rosa DO - Last Filed: 04/17/22 08:19> Initial Vital Signs Initial Vital Signs: Vital Signs Temperature 98 F 04/16/22 11:33 Pulse Rate 72 04/16/22 11:33 Respiratory Rate 17 04/16/22 11:33 Blood Pressure 113/55 L 04/16/22 11:33 Pulse Oximetry 99 04/16/22 11:33 Oxygen Delivery Method 04/16/22 11:33 Course <Luis Grijalva PA-C - Last Filed: 04/16/22 12:38> Orders Ordered: ED Orders 04/16/22 11:37 XR hip w pel if done RT 2V Stat Vital Signs Vital signs: Vital Signs - 8 hr 04/16/22 11:33 Temperature 98 F Pulse Rate 72 Respiratory Rate 17 Blood Pressure 113/55 L Pulse Oximetry 99 Oxygen Delivery Method Room Air <DO Capo Lopez Last Filed: 04/17/22 08:19> Orders Ordered: ED Orders 04/16/22 11:37 XR hip w pel if done RT 2V Stat Vital Signs Vital signs: Vital Signs - 8 hr 04/16/22 11:33 Temperature 98 F Pulse Rate 72 Respiratory Rate 17 Blood Pressure 113/55 L Pulse Oximetry 99 Oxygen Delivery Method Room Air MDM - Extremity (Nontraumatic) <MERY Ugarte Last Filed: 04/16/22 12:38> Imaging Data Hip x-ray: Radiologist's Impression: PROCEDURE:? XR HIP W PEL IF DONE RT 2V ? INDICATIONS:? hip pain ? TECHNIQUE:? AP pelvis with lateral view(s) of the right hip(s).? ? COMPARISON:? None. ? FINDINGS:? ? Bones:? No fractures or dislocations.? Pelvic ring appears intact.? No suspicious bony lesions.? ? Soft tissues:? The visualized bowel gas pattern is normal.? No suspicious soft tissue calcifications.? ? ? IMPRESSION:? No acute radiographic findings. If pain persists, followup imaging in 5-7 days is recommended to exclude occult fracture. ? Dictated by: Elena Walls M.D. on 04/16/2022 at 12:08 ? ? Approved by: Elena Walls M.D. on 04/16/2022 at 12:09 ? MDM Narrative Medical decision making narrative: 77-year-old female with past medical history spinal stenosis presents to the ED with 2 weeks of worsening right-sided hip pain. Concern for fracture/dislocation versus musculoskeletal sprain/strain versus osteoarthritis. X-rays were obtained, negative for fractures or dislocations. Patient's symptoms likely due to a musculoskeletal sprain/strain versus osteoarthritis. Recommend taking Tylenol, ibuprofen, Flexeril. Patient agrees to follow-up with PCP for further evaluation and treatment. ED return precautions discussed with patient. Patient verbalized understanding. Discharge Plan Departure Patient Disposition: Home Clinical Impression: Acute hip pain Instructions: DI for Hip Pain Activity Restrictions/Additional Instructions: You were evaluated in the ED today for right-sided hip pain. Your x-ray did not show any fractures or dislocations. Your symptoms are likely due to a musculoskeletal sprain/strain or osteoarthritis. You may take ibuprofen, Tylenol, Flexeril for your symptoms. Return to the ED if your symptoms worsen, you experience any numbness, tingling, weakness. Please follow-up with your PCP as soon as possible for further evaluation treatment. Prescriptions: New cyclobenzaprine 10 mg tablet 10 mg PO TID PRN (Reason: muscle spasm) 7 Days Qty: 21 0RF No Action [STOOL SOFTENER] 1 dose PO PRN PRN (Reason: Constipation) Qty: 0 cholecalciferol (vitamin D3) [Vitamin D3] 2,000 UNIT capsule 2,000 iu PO QDAY Qty: 0 trazodone 100 mg tablet 100 mg PO BEDTIME PRN (Reason: insomnia) Qty: 60 2RF methylprednisolone [Medrol (Cristobal)] 4 mg tablets,dose pack 4 mg PO DAILY Qty: 21 0RF Rx Instructions: TAKE EACH DAYS TABLETS ALL TOGETHER IN AM. THEN STOP ANY OTHER NSAIDS WHILE ON STEROIDS. Vitamin B-12 1,000 mcg/mL Drops 1 ml PO DAILY folic acid 1 mg Tablet 1 mg DAILY levothyroxine 75 mcg Tablet 75 mcg PO DAILY gabapentin 600 mg tablet 600 mg PO TID tramadol-acetaminophen 37.5-325 mg tablet 1 tab PO Q4-6H PRN (Reason: Pain, Moderate) atorvastatin 20 mg tablet 20 mg PO BEDTIME omeprazole 40 mg capsule,delayed release(DR/EC) 40 mg PO DAILY tobramycin-dexamethasone 0.3-0.1 % drops,suspension 1 drp EYE-BOTH ONCE Referrals: Stormy Corea MD [Primary Care Provider] - Visit Report Forms: Patient Portal/API <Petra Rosa DO - Last Filed: 04/17/22 08:19> Cosign ED Attending Cosignature Attestation: I was immediately available in the department for consultation. Documentation has been reviewed. I agree with assessment and plan.
== END 2022-04-16 12:42 | disposition home or self-care (01) ==
PROVIDERS: Emergency Provider Student in an Organized Health Care Education/Training Program; PCP Internal Medicine
DX: M25.551 Pain in right hip (principal)
CPT/HCPCS: 73502; 99281; 99283

== ENCOUNTER 2022-06-04 07:55 | Outpatient (CLI) | payer MEDICARE, OTHER, SELFPAY ==
[2022-06-04] VITALS (9 sets, daily range): BP systolic 111–136; BP diastolic 55–73; PULSE 58–70; RESP 10–18; TEMP 36.3; O2SAT 96–100
--- NOTE | 2022-06-04 07:58 | DI.RAD.S_ITS ---
PROCEDURE: PAIN L/S TRANSFORAM INJECT NYA COMPARISON: [facility], XA, PAIN C/T FACET INJ/BLK 1ST L, 01/29/2022, 9:53. INDICATIONS: SPONDYLOSIS FINDINGS: Fluoroscopic spot filming was performed to verify placement of spinal needles on both sides at the L5-S1 level, as labeled on the films. Appropriate location of the needle tips was confirmed by injection of iodinated contrast. IMPRESSION: Intraprocedural examination demonstrating appropriate positions of the needles. Dictated by: Sergio Cali M.D. on 06/04/2022 at 11:01 Approved by: Sergio Cali M.D. on 06/04/2022 at 11:01
[2022-06-04] MEDS: IOPAMIDOL 15 ML VIAL 3 ML INJ (09:34)
[2022-06-04] MEDS: BUPIVACAINE 0.25% (PF) VIAL 2 ML INJ (09:37)
[2022-06-04] MEDS: BETAMETHASONE 30 MG/5 ML MDV 12 MG INJ (09:37)
[2022-06-04] MEDS: DEXAMETHASONE 10 MG/ML VIAL 20 MG INJ (09:37)
[2022-06-04] MEDS: MIDAZOLAM 2 MG/2 ML VIAL 3 MG IV (09:42)
--- NOTE | 2022-06-04 09:53 | PM.PROC.IR.1 ---
Date/Time/Diagnoses Date of procedure: 06/04/22 Time of procedure: 09:53 Pre-procedure diagnosis: 1. FORAMINAL STENOSIS WITH LE SYMPTOMS Post-procedure diagnosis: same Procedure Notes Procedure: 1. FLUOROSCOPICALLY GUIDED CONTRAST CONTROLLED TRANSFORAMINAL EPIDURAL STEROID INJECTION - BILATERAL L5/S1 TFESI Indications: Irasema is referred by Dr. Corea for treatment of Foraminal Stenosis with bilateral LE Symptoms Physician: Justyn Diaz Total Fluoroscopy time (seconds): 13 Total sedation minutes: 15 Complications: none Procedure in detail & Post-procedure care: FINDINGS Foraminal Nerve Root Compression secondary to disc disease and facet hypertrophy DESCRIPTION OF PROCEDURE Following review of allergy and review of potential side effects and complications, including, but not necessarily limited to, infection, allergic reaction, local tissue breakdown, stroke, temporary or permanent nerve injury, paralysis, and possible , the patient indicated that the patient understood and agreed to proceed. An informed consent document was signed by the patient, witnessed by a nurse, and placed in the patient's chart. Additionally, other treatment options including medications, modalities, and physical therapy were reviewed with the patient. After review of previous anaesthesic history and IV conscious sedation the patient was deemed safe to proceed with today?s procedure with IV conscious sedation as ASA class II designation. Safety time-out was performed to confirm patient ID, procedure to be performed and site of procedure. IV sedation was accomplished with a combination of 4mg of Versed was administered by the RN after DO order, titrated to patient comfort during the course of the procedure while the patient remained responsive to all verbal commands In the prone position following sterile prep and drape of the lumbar region, the right L5/S1 posterior neuroforamen was identified fluoroscopically. The skin was anesthetized via a 25-gauge 1.5-inch needle with 1% lidocaine solution. At this point, a 25-gauge 3.5-inch spinal needle was atraumatically introduced and advanced under fluoroscopic guidance through the posterior right L5/S1 neuroforamen to approximately the anterior aspect of the canal. Depth was confirmed on lateral view. Following negative aspiration, injection of approximately 1.5cc of Isovue 200 under live fluoroscopy in the AP view confirmed excellent flow along the nerve root, into the epidural space without vascular or intrathecal uptake observed Radiological data, including multiple fluoroscopic views of the lumbosacral spine, reveal a spinal needle at the right L5/S1 posterior neuroforamen. Subsequent views show flow of contrast material flowing superiorly and inferiorly along the nerve root confirming epidural flow. Subsequently, a test dose of 1.5cc of 1% lidocaine solution was administered and patient was observed for two minutes for signs or symptoms of complications, including abdominal pain, shortness of breath, bilateral upper or lower extremity weakness, nausea and vomiting, prior to steroid injection. At this point, a total of 3cc or 20mg of dexamethasone and 6mg betamethasone was injected without incident. Attention was then refocused to the left L5/S1 level where the identical procedure was replicated. The procedure tolerated the procedure well without signs or symptoms of complications prior to transfer to the recovery area continued monitoring without incident. The patient was then transferred to the recovery area where they were observed for an appropriate time after the injection. The patient reported a VAS score of 7 prior to the procedure and a post-procedure VAS of 0. POST OP INSTRUCTIONS The patient was provided a Pain Log to continue to record their response to the target-specific procedure prior to follow-up visit with their referring physician. Additionally, specific post-injection care instructions and a contact number to our office were provided if concerns arise regarding possible complications associated with the procedure are suspected.
== END 2022-06-04 10:10 | disposition home or self-care (01) ==
PROVIDERS: PCP Internal Medicine; Referring Provider Physical Medicine & Rehabilitation; Visit Provider Physical Medicine & Rehabilitation
DX: M48.07 Spinal stenosis, lumbosacral region (principal); M51.17 Intervertebral disc disorders with radiculopathy, lumbosacral region
CPT/HCPCS: 64483; 99152; J0702; J1100; J2250; J3490

== ENCOUNTER → 2022-07-02 14:00 | Outpatient (CLI) | payer MEDICARE, OTHER, SELFPAY | PROVIDERS: PCP Internal Medicine; Visit Provider Physician Assistant Medical | DX: R30.0 Dysuria (principal) | CPT/HCPCS: 87077; 87086; 87186 ==

== ENCOUNTER → 2022-07-09 14:59 | Outpatient (CLI) | payer MEDICARE, OTHER, SELFPAY ==
--- NOTE | 2022-07-09 15:01 | DI.MRI.S_ITS ---
PROCEDURE: MR CERVICAL SPINE WO CON INDICATIONS: Chronic progressive cervical radiculopathy TECHNIQUE: Noncontrast sagittal T1 spin echo and T2 fast spin echo, sagittal STIR, foraminal oblique sagittal T2 fast spin echo, and axial gradient echo or T2 fast spin echo through the cervical spine. COMPARISON: [facility], MR, MR CERVICAL SPINE WO CON, 01/26/2018, 16:28. FINDINGS: Image quality: Excellent. Alignment and Curvature: There is normal bony alignment. Patient is status post anterior fusion and discectomy at C6-7, as before. Bone Marrow: Marrow demonstrates normal overall signal. Spinal Cord: Visualized spinal cord has normal size and signal. No cerebellar tonsillar herniation. Paraspinous Soft Tissues: No paravertebral masses. Prevertebral soft tissues are normal in thickness. C2-C3: Normal appearance. C3-C4: Normal appearance. C4-C5: Mild disc desiccation. No canal stenosis. Se severe bilateral foraminal stenosis. The degree of foraminal narrowing is likely slightly increased from the comparison MR dated January 26, 2018. C5-C6: Moderate disc desiccation and height loss. Increased degenerative endplate changes are noted when compared with the study dated January 26, 2018. No canal stenosis. Mild bilateral foraminal stenosis. C6-C7: No canal stenosis or foraminal narrowing. C7-T1: Normal appearance. IMPRESSION: 1. Severe bilateral foraminal stenosis at L4-5. The degree of foraminal narrowing is slightly increased from the 2018 study. 2. Increased degenerative changes at C5-6 when compared with the prior study. Dictated by: Elena Walls M.D. on 07/09/2022 at 17:06 Approved by: Elena Walls M.D. on 07/09/2022 at 17:09
== END ==
PROVIDERS: PCP Internal Medicine; Referring Provider Physical Medicine & Rehabilitation; Visit Provider Physical Medicine & Rehabilitation
DX: M47.22 Other spondylosis with radiculopathy, cervical region (principal); M48.02 Spinal stenosis, cervical region
CPT/HCPCS: 72141

== ENCOUNTER 2022-07-23 13:20 | Outpatient (CLI) | payer MEDICARE, OTHER, SELFPAY ==
[2022-07-23] VITALS (9 sets, daily range): BP systolic 109–136; BP diastolic 56–68; PULSE 67–72; RESP 12–20; TEMP 36.4; O2SAT 98–100
--- NOTE | 2022-07-23 13:21 | DI.RAD.S_ITS ---
PROCEDURE: PAIN L/S TRANSFORAMINAL INJECT INDICATIONS: SPONDYLOSIS COMPARISON: [facility], XA, PAIN L/S TRANSFORAMINAL INJECT, 08/05/2018, 17:14. [facility], XA, PAIN L/S TRANSFORAM INJECT [facility], 06/04/2022, 9:34. FINDINGS: Fluoroscopic spot filming was performed to verify placement of a spinal needle at the L4-L5 level, as labeled on the films. Appropriate location of the needle tip was confirmed by injection of iodinated contrast. IMPRESSION: Intraprocedural examination within normal limits. Dictated by: Sergio Cali M.D. on 07/23/2022 at 14:15 Approved by: Sergio Cali M.D. on 07/23/2022 at 14:15
[2022-07-23] MEDS: IOPAMIDOL 15 ML VIAL 3 ML INJ (14:30)
[2022-07-23] MEDS: BETAMETHASONE 30 MG/5 ML MDV 6 MG INJ (14:30)
[2022-07-23] MEDS: MIDAZOLAM 2 MG/2 ML VIAL 4 MG IV (14:31)
[2022-07-23] MEDS: DEXAMETHASONE 10 MG/ML VIAL 20 MG INJ (14:31)
[2022-07-23] MEDS: BUPIVACAINE 0.5% (PF) VIAL 2 ML SUBCUT (14:33)
--- NOTE | 2022-07-23 14:47 | P.PCN_ITS ---
Date/Time/Diagnoses Date of procedure: 07/23/22 Time of procedure: 14:48 Pre-procedure diagnosis: 1. FORAMINAL STENOSIS WITH LE SYMPTOMS Post-procedure diagnosis: same Procedure Notes Procedure: 1. FLUOROSCOPICALLY GUIDED CONTRAST CONTROLLED TRANSFORAMINAL EPIDURAL STEROID INJECTION - RIGHT L4/5 TFESI Indications: Irasema is referred by Dr. Corea for treatment of Foraminal Stenosis with Right LE Symptoms Physician: Justyn Diaz Total Fluoroscopy time (seconds): 19 Total sedation minutes: 17 Complications: none Procedure in detail & Post-procedure care: FINDINGS Foraminal Nerve Root Compression secondary to disc disease and facet hypertrophy DESCRIPTION OF PROCEDURE Following review of allergy and review of potential side effects and complications, including, but not necessarily limited to, infection, allergic reaction, local tissue breakdown, stroke, temporary or permanent nerve injury, paralysis, and possible , the patient indicated that the patient understood and agreed to proceed. An informed consent document was signed by the patient, witnessed by a nurse, and placed in the patient's chart. Additionally, other treatment options including medications, modalities, and physical therapy were reviewed with the patient. After review of previous anaesthesic history and IV conscious sedation the patient was deemed safe to proceed with today?s procedure with IV conscious sedation as ASA class II designation. Safety time-out was performed to confirm patient ID, procedure to be performed and site of procedure. IV sedation was accomplished with a combination of 4mg of Versed was administered by the RN after DO order, titrated to patient comfort during the course of the procedure while the patient remained responsive to all verbal commands In the prone position following sterile prep and drape of the lumbar region, the right L4/5 posterior neuroforamen was identified fluoroscopically. The skin was anesthetized via a 25-gauge 1.5-inch needle with 1% lidocaine solution. At this point, a 25-gauge 3.5-inch spinal needle was atraumatically introduced and advanced under fluoroscopic guidance through the posterior right L4/5 neuroforamen to approximately the anterior aspect of the canal. Depth was confirmed on lateral view. Following negative aspiration, injection of approximately 1.5cc of Isovue 200 under live fluoroscopy in the AP view co nfirmed excellent flow along the nerve root, into the epidural space without vascular or intrathecal uptake observed Radiological data, including multiple fluoroscopic views of the lumbosacral spin e, reveal a spinal needle at the right L4/5 posterior neuroforamen. Subsequent views show flow of contrast material flowing superiorly and inferiorly along the nerve root confirming epidural flow. Subsequently, a test dose of 1.5 cc of 1% lidocaine solution was administered and patient was observed for two minutes for signs or symptoms of complications, including abdominal pain, shortness of breath, bilateral upper or lower extremity weakness, nausea and vomiting, prior to steroid injection. At this point, a total of 3cc or 20mg of dexamethasone and 6mg of betamethasone was injected without incident. The procedure tolerated the procedure well without signs or symptoms of complications prior to transfer to the recovery area continued monitoring without incident. The patient was then transferred to the recovery area where they were observed for an appropriate time after the injection. The patient reported a VAS score of 7 prior to the procedure and a post- procedure VAS of 0. POST OP INSTRUCTIONS The patient was provided a Pain Log to continue to record their response to the target-specific procedure prior to follow-up visit with their referring physician. Additionally, specific post-injection care instructions and a contact number to our office were provided if concerns arise regarding possible complications associated with the procedure are suspected.
== END 2022-07-23 15:05 | disposition home or self-care (01) ==
PROVIDERS: PCP Internal Medicine; Referring Provider Physical Medicine & Rehabilitation; Visit Provider Physical Medicine & Rehabilitation
DX: M48.061 Spinal stenosis, lumbar region without neurogenic claudication (principal); M51.16 Intervertebral disc disorders with radiculopathy, lumbar region
CPT/HCPCS: 64483; 99152; J0702; J1100; J2250; J3490

== ENCOUNTER 2022-08-29 08:11 | Outpatient (CLI) | payer MEDICARE, OTHER, SELFPAY ==
[2022-08-29] VITALS (9 sets, daily range): BP systolic 100–117; BP diastolic 49–59; PULSE 59–63; RESP 12–19; TEMP 36.3; O2SAT 98–100
--- NOTE | 2022-08-29 08:20 | DI.RAD.S_ITS ---
PROCEDURE: PAIN C/T INTERLAMINAR INJECT INDICATIONS: SPINAL STENOSIS COMPARISON: None. FINDINGS: Fluoroscopic spot filming was performed to verify placement of spinal needles at the C6-C7 level, as labeled on the films. Appropriate location(s) of the needle tip(s) was confirmed by injection of iodinated contrast. IMPRESSION: Fluoroscopic intra procedural images demonstrating C6-C7 translaminar epidural steroid injection. Dictated by: Jose Vogt M.D. on 08/29/2022 at 15:16 Approved by: Jose Vogt M.D. on 08/29/2022 at 15:16
[2022-08-29] MEDS: MIDAZOLAM 2 MG/2 ML VIAL IV (09:42)
[2022-08-29] MEDS: BUPIVACAINE 0.25% (PF) VIAL 2 ML INJ (09:59)
[2022-08-29] MEDS: IOPAMIDOL 15 ML VIAL 3 ML INJ (10:00)
--- NOTE | 2022-08-29 10:00 | P.PCN_ITS ---
Date/Time/Diagnoses Date of procedure: 08/29/22 Time of procedure: 10:00 Pre-procedure diagnosis: 1. CERVICAL STENOSIS, 2. CERVICAL HNP WITH UPPER EXTREMITY RADICULAR FEATURES Post-procedure diagnosis: same Procedure Notes Procedure: 1. FLUORSCOPICALLY GUIDED CONTRAST CONTROLLED INTERLAMINAR EPIDURAL STEROID INJECTION - C6/7 TL MIK Indications: Irasema is referred by Dr. Corea for treatment of Cervical HNP with Upper Extremity Paresthesias. Physician: Justyn Diaz Total Fluoroscopy time (seconds): 17 Total sedation minutes: 13 Complications: none Procedure in detail & Post-procedure care: FINDINGS Cervical Stenosis due to disc deterioration and nerve root irritation and nerve root irritation DESCRIPTION OF PROCEDURE Fluoroscopically guided, contrast-controlled C6/7 translaminar epidural steroid injection with conscious sedation. Following review of allergy and review of potential side effects and complications, including, but not necessarily limited to, infection, allergic reaction, local tissue breakdown, temporary as well as permanent nerve injury, stroke, paralysis, and possible , the patient indicated that patient understood and agreed to proceed. An informed consent document was signed by the patient, witnessed by a nurse, and placed in the patient's chart. Additionally, other treatment options including modalities, medications, and physical therapy were reviewed with the patient. After review of previous anaesthesic history and IV conscious sedation the patient was deemed safe to proceed with today?s procedure with IV conscious sedation as ASA class II designation. Safety time-out was performed to confirm patient ID, procedure to be performed and site of procedure. IV sedation was accomplished with a combination of 2mg of Versed administered by the RN after DO order, titrated to patient comfort during the course of the procedure while the patient remained responsive to all verbal commands. In the prone position, following sterile prep and drape of the cervical region, the C6/7 translaminar space was identified fluoroscopically. The skin was anesthetized via a 25-gauge 1.5-inch needle with 1% lidocaine solution. At this point, a 25-gauge, 2.5-inch short bevel spinal needle was atraumatically introduced and advanced under fluoroscopic guidance into epidural space at the C6/7 translaminar space. Depth was confirmed on lateral view. Radiological data, including multiple fluoroscopic views of the cervical spine, reveal a spinal needle at the C6/7 translaminar space. Lateral views then show placement of the needle in the epidural space. Subsequent views show contrast material flowing superiorly and inferiorly in the epidural space. DSA fluoroscopy with live contrast injection, once again, confirmed no vascular or intrathecal uptake. At this point, using loss of resistance technique with saline and air, the epidural space was entered. Following negative aspiration, injection of approximately 1.5 cc of Isovue-200 with live fluoroscopy in the AP view confirmed epidural flow in the epidural space without vascular or intrathecal uptake observed. Subsequently, a test dose of 1cc of 1% lidocaine solution was injected and patient was observed for two minutes without signs or symptoms of complications, including abdominal pain, shortness of breath, bilateral upper or lower extremity weakness, nausea and vomiting, prior to steroid injection. At this point, 3cc or 30mg of dexamethasone was then injected without incident. The patient tolerated the procedure well without signs or symptoms of complic ations prior to being transferred to the recovery area for further monitoring, The patient was then transferred to the recovery area where they were observed for an appropriate period of time after the injection. The patient reported a VAS score of 6 prior to the procedure and a post-procedure VAS of 0. POST OP INSTRUCTIONS The patient was provided a Pain Log to continue to record their response to the target-specific procedure prior to follow-up visit with the referring provider. Additionally, specific post-injection care instructions and a contact number to our office were provided if concerns arise regarding possible complications associated with the procedure are suspected.
[2022-08-29] MEDS: DEXAMETHASONE 10 MG/ML VIAL 30 MG INJ (10:01)
== END 2022-08-29 10:15 | disposition home or self-care (01) ==
PROVIDERS: PCP Internal Medicine; Referring Provider Physical Medicine & Rehabilitation; Visit Provider Physical Medicine & Rehabilitation
DX: M48.02 Spinal stenosis, cervical region (principal); M50.123 Cervical disc disorder at C6-C7 level with radiculopathy
CPT/HCPCS: 62321; 99152; J1100; J2250; J3490

== ENCOUNTER → 2023-02-08 15:15 | Outpatient (CLI) | payer MEDICARE, OTHER, SELFPAY ==
--- NOTE | 2023-02-08 15:18 | DI.RAD.S_ITS ---
PROCEDURE: XR CERVICAL SPINE 4V OR 5V INDICATIONS: NECK PAIN TECHNIQUE: 5 views of the cervical spine acquired. COMPARISON: [facility], CR, XR CERVICAL SPINE 4V OR 5V, 02/22/2020, 14:48. FINDINGS: Bones: No fractures or dislocations to the T1 level. Oblique images demonstrate no bony foraminal stenoses. Oblique views demonstrate bony foraminal narrowing at C3-4 on the left and C4-5, C5-6, and C6-7 on the right. Status post ACDF at C6-7. Soft tissues: No prevertebral soft tissue swelling. IMPRESSION: 1. Postoperative changes of ACDF at C6-7. 2. Multilevel degenerative changes of the cervical spine. Dictated by: Naldo Langley M.D. on 02/08/2023 at 15:37 Approved by: Naldo Langley M.D. on 02/08/2023 at 15:39
== END ==
PROVIDERS: PCP Internal Medicine; Referring Provider Physical Medicine & Rehabilitation; Visit Provider Physical Medicine & Rehabilitation
DX: M47.22 Other spondylosis with radiculopathy, cervical region (principal); M50.10 Cervical disc disorder with radiculopathy, unspecified cervical region; Z98.1 Arthrodesis status
CPT/HCPCS: 72050

== ENCOUNTER → 2023-02-15 08:37 | Outpatient (CLI) | payer MEDICARE, OTHER, SELFPAY ==
--- NOTE | 2023-02-15 08:38 | DI.MRI.S_ITS ---
PROCEDURE: MR HIP RT WO CON INDICATIONS: Progressive right hip pain TECHNIQUE: Noncontrast coronal T1 spin echo and STIR through the bony pelvis. Coronal and axial T2 fast spin echo with fat saturation, sagittal T1 spin echo, and oblique axial T2 fast spin echo with fat saturation through the hip. COMPARISON: [facility], CR, XR HIP W PEL IF DONE RT 2V, 04/16/2022, 11:44. FINDINGS: Image quality: Excellent. Bones and joints: Bilateral hip joint osteoarthritic changes are seen with joint space narrowing and subchondral sclerosis. No intraosseous lesions or fractures. No avascular necrosis of the femoral heads. The visualized lower lumbar spine appears normally aligned. Tendons and ligaments: Distal right gluteus medius and minimus tendinosis at their insertion on greater trochanter is seen. Low-grade partial-thickness tear involving distal gluteus medius is also likely present . The nearby proximal iliotibial band also appears intact. The iliopsoas tendon appears intact, without adjacent bursal fluid collections or evidence for impingement syndrome. Tendinosis and low-grade partial-thickness tear involving origins of hamstring tendons at ischial tuberosity is seen. The straight and reflected heads of the rectus femoris muscle origin appear intact, as well as the conjoint tendon. The ligamentum teres appears intact where visualized. Labrum and cartilage: diffuse thinning The of articulating cartilages over right femoral head is seen. Signal abnormality, contour irregularity is noted in superior anterior labrum at 12 to 2 o'clock position. alpha angle of the femur is within normal limits at less than 55 degrees. Soft tissues: Visualized muscles demonstrate normal bulk and internal signal. Quadratus femoris muscle demonstrates no internal edema to suggest ischiofemoral impingement. The proximal sciatic neurovascular bundle appears normal adjacent to the hamstring tendons. No free pelvic fluid. Bladder wall thickness is normal. Genitourinary structures and bowel loops appear normal where visualized. IMPRESSION: 1. [id number] bilateral hip joint osteoarthritis . No fracture or dislocation. No evidence of avascular necrosis. 2. Distal right gluteus medius tendinosis and low-grade partial-thickness tear at greater trochanter. Distal right gluteus minimus tendinosis. Tendinosis and low-grade partial-thickness tear involving hamstring tendon origins at ischial tuberosity. 3. Suggestion of superior anterior right hip labral tear at 12 to 2 o'clock position. Dictated by: Dave Bradley M.D. on 02/17/2023 at 8:56 Approved by: Dave Bradley M.D. on 02/17/2023 at 9:08
== END ==
PROVIDERS: PCP Internal Medicine; Referring Provider Physical Medicine & Rehabilitation; Visit Provider Physical Medicine & Rehabilitation
DX: M70.61 Trochanteric bursitis, right hip (principal); M16.0 Bilateral primary osteoarthritis of hip; S76.011A Strain of muscle, fascia and tendon of right hip, initial encounter; S76.811A Strain of other specified muscles, fascia and tendons at thigh level, right thigh, initial encounter
CPT/HCPCS: 73721

== ENCOUNTER 2023-02-27 07:55 | Outpatient (CLI) | payer MEDICARE, OTHER, SELFPAY ==
[2023-02-27] VITALS (11 sets, daily range): BP systolic 115–137; BP diastolic 55–63; PULSE 57–63; RESP 11–23; TEMP 36.4; O2SAT 98–100
--- NOTE | 2023-02-27 07:57 | DI.RAD.S_ITS ---
PROCEDURE: PAIN L/S TRANSFORAMINAL INJECT INDICATIONS: SPONDYLOSIS COMPARISON: [facility], , PAIN L/S TRANSFORAMINAL INJECT, 07/23/2022, 15:30. FINDINGS: Fluoroscopic spot filming was performed to verify placement of a spinal needle at the L3-L4 level, as labeled on the films. Appropriate location of the needle tip was confirmed by injection of iodinated contrast. IMPRESSION: Intraprocedural examination within normal limits. Dictated by: Sergio Cali M.D. on 02/27/2023 at 11:06 Approved by: Sergio Cali M.D. on 02/27/2023 at 11:06
[2023-02-27] MEDS: MIDAZOLAM 2 MG/2 ML VIAL IV (09:05)
[2023-02-27] MEDS: DEXAMETHASONE 10 MG/ML VIAL 20 MG INJ (09:15)
[2023-02-27] MEDS: BUPIVACAINE 0.25% (PF) VIAL 2 ML INJ (09:16)
[2023-02-27] MEDS: BETAMETHASONE 30 MG/5 ML MDV 6 MG INJ (09:16)
[2023-02-27] MEDS: IOPAMIDOL 15 ML VIAL 3 ML INJ (09:16)
[2023-02-27] MEDS: MIDAZOLAM 2 MG/2 ML VIAL 1 MG IV (09:21)
--- NOTE | 2023-02-27 09:36 | P.PCN_ITS ---
Date/Time/Diagnoses Date of procedure: 02/27/23 Time of procedure: 09:36 Pre-procedure diagnosis: 1. FORAMINAL STENOSIS WITH LE SYMPTOMS Post-procedure diagnosis: same Procedure Notes Procedure: 1. FLUOROSCOPICALLY GUIDED CONTRAST CONTROLLED TRANSFORAMINAL EPIDURAL STEROID INJECTION - RIGHT L3/4 TFESI Indications: Irasema is referred by Dr. Corea for treatment of Foraminal Stenosis with right LE Symptoms Physician: Justyn Diaz Total Fluoroscopy time (seconds): 10 Total sedation minutes: 20 Complications: none Procedure in detail & Post-procedure care: FINDINGS Foraminal Nerve Root Compression secondary to disc disease and facet hypertrophy DESCRIPTION OF PROCEDURE Following review of allergy and review of potential side effects and complications, including, but not necessarily limited to, infection, allergic reaction, local tissue breakdown, stroke, temporary or permanent nerve injury, paralysis, and possible , the patient indicated that the patient understood and agreed to proceed. An informed consent document was signed by the patient, witnessed by a nurse, and placed in the patient's chart. Additionally, other treatment options including medications, modalities, and physical therapy were reviewed with the patient. After review of previous anaesthesic history and IV conscious sedation the patient was deemed safe to proceed with today?s procedure with IV conscious sedation as ASA class II designation. Safety time-out was performed to confirm patient ID, procedure to be performed and site of procedure. IV sedation was accomplished with a combination of 3mg of Versed was administered by the RN after DO order, titrated to patient comfort during the course of the procedure while the patient remained responsive to all verbal commands In the prone position following sterile prep and drape of the lumbar region, the right L3/4 posterior neuroforamen was identified fluoroscopically. The skin was anesthetized via a 25-gauge 1.5-inch needle with 1% lidocaine solution. At this point, a 25-gauge 3.5-inch spinal needle was atraumatically introduced and advanced under fluoroscopic guidance through the posterior right L3/4 neuroforamen to approximately the anterior aspect of the canal. Depth was confirmed on lateral view. Following negative aspiration, injection of approximately 1.5cc of Isovue 200 under live fluoroscopy in the AP view confi rmed excellent flow along the nerve root, into the epidural space without vascular or intrathecal uptake observed Radiological data, including multiple fluoroscopic views of the lumbosacral spine, reveal a spinal needle at the right L3/4 posterior neuroforamen. Subsequent views show flow of contrast material flowing superiorly and inferiorly along the nerve root confirming epidural flow. Subsequently, a test dose of 1.5 cc of 1% lidocaine solution was administered and patient was observed for two minutes for signs or symptoms of complications, including abdominal pain, shortness of breath, bilateral upper or lower extremity weakness, nausea and vomiting, prior to steroid injection. At this point, a total of 3cc or 20mg of dexamethasone and 6mg of betamethasone was injected without incident. The patient tolerated the procedure well without signs or symptoms of complications prior to transfer to the recovery area continued monitoring without incident. The patient was then transferred to the recovery area where they were observed for an appropriate time after the injection. The patient reported a VAS score of 7 prior to the procedure and a post-procedure VAS of 0. POST OP INSTRUCTIONS The patient was provided a Pain Log to continue to record their response to the target-specific procedure prior to follow-up visit with their referring phys ician. Additionally, specific post-injection care instructions and a contact number to our office were provided if concerns arise regarding possible complications associated with the procedure are suspected.
== END 2023-02-27 09:52 | disposition home or self-care (01) ==
LOC: RAD 07:56
PROVIDERS: PCP Internal Medicine; Referring Provider Physical Medicine & Rehabilitation; Visit Provider Physical Medicine & Rehabilitation
DX: M48.061 Spinal stenosis, lumbar region without neurogenic claudication (principal); M51.16 Intervertebral disc disorders with radiculopathy, lumbar region; M47.26 Other spondylosis with radiculopathy, lumbar region
CPT/HCPCS: 64483; 99152; J0702; J1100; J2250; J3490

== ENCOUNTER → 2023-04-03 09:15 | Outpatient (CLI) | payer MEDICARE, OTHER, SELFPAY ==
[2023-04-03 09:51] LABS: Estimated Glomerular Filt Rate > 60 mL/min (>60)
== END ==
PROVIDERS: PCP Internal Medicine; Referring Provider Internal Medicine; Visit Provider Internal Medicine
DX: R10.30 Lower abdominal pain, unspecified (principal)
CPT/HCPCS: 36415; 82565

== ENCOUNTER → 2023-04-12 10:57 | Outpatient (CLI) | payer MEDICARE, OTHER, SELFPAY ==
--- NOTE | 2023-04-12 10:58 | DI.CT.S_ITS ---
PROCEDURE: CT ABDOMEN PELVIS W CON INDICATIONS: Lower abdominal pain, unspecified TECHNIQUE: After the administration of intravenous contrast, axial sections acquired from the lung bases to the pubic symphysis. Coronal and sagittal reformats were performed. For radiation dose reduction, the following was used: automated exposure control, adjustment of mA and/or kV according to patient size. COMPARISON: [facility], CT, CT ABDOMEN PELVIS W CON, 01/08/2022, 15:15. FINDINGS: Lower thorax: The lung bases are clear. Heart size normal. No hiatal hernia. Liver: The liver is diffusely decreased in attenuation without focal mass lesion. Biliary system: No calcified cholelithiasis or pericholecystic inflammation. No intra or extrahepatic bile duct dilatation. Pancreas: Unremarkable without mass or inflammation evident. Spleen: Normal in size and density. Adrenals: Normal morphology and density. Reproductive system: Hysterectomy. Urinary system: Normal renal size and attenuation. No renal calculi, hydronephrosis, or solid mass present. Urinary bladder unremarkable. Gastrointestinal system: The bowel is unremarkable without evidence of bowel obstruction or inflammation. The stomach appears unremarkable. Multiple diverticula arise from the sigmoid colon without evidence of diverticulitis. Appendix: Normal appendix identified. No evidence of appendicitis. Peritoneal spaces: No mesenteric or retroperitoneal adenopathy. No free air. No free fluid. Vasculature: The IVC, aorta and iliac vasculature are unremarkable. Abdominal wall: Abdominal wall intact without evidence of ventral or inguinal hernias. Musculoskeletal: Normal bone mineralization. Degenerative disc disease and arthropathy noted in lower lumbar spine. Lower lumbar spine posterior decompression, interbody fusion santino and screw instrumentation No acute fractures. IMPRESSION: 1. No acute CT findings in the abdomen and pelvis. No change from the prior exam. Approved by: Michael Green M.D. on 04/12/2023 at 19:38
== END ==
PROVIDERS: PCP Internal Medicine; Referring Provider Internal Medicine; Visit Provider Internal Medicine
DX: R10.30 Lower abdominal pain, unspecified (principal)
CPT/HCPCS: 74177; Q9967

== ENCOUNTER → 2023-12-16 16:19 | Outpatient (CLI) | payer MEDICARE, OTHER, SELFPAY ==
--- NOTE | 2023-12-16 16:22 | DI.RAD.S_ITS ---
PROCEDURE: XR LUMBAR SPINE MIN 4V INDICATIONS: BACK PAIN TECHNIQUE: 5 views of the lumbar spine were acquired, including bilateral oblique views. COMPARISON: [facility], , XR LUMBAR SPINE MIN 4V, 12/26/2021, 14:31. FINDINGS: Bones: L4-5 interbody fusion with good graft incorporation and posterior santino and screw instrumentation. No evidence of hardware failure loosening. Posterior decompressive lead mild laminotomy present. Remainder of the vertebral body heights and alignment maintained. Right hip prosthesis. Disc space narrowing with hypertrophic arthropathy in the lower lumbar spine Soft tissues: Overlying bowel gas pattern is normal. No suspicious soft tissue calcifications. Oblique images: No pars defects. IMPRESSION: L4-5 interbody fusion with good graft incorporation Approved by: Michael Green M.D. on 12/16/2023 at 17:21
== END ==
PROVIDERS: PCP Internal Medicine; Referring Provider Physical Medicine & Rehabilitation; Visit Provider Physical Medicine & Rehabilitation
DX: M48.062 Spinal stenosis, lumbar region with neurogenic claudication (principal); M51.26 Other intervertebral disc displacement, lumbar region; Z98.1 Arthrodesis status
CPT/HCPCS: 72110

== ENCOUNTER → 2024-01-07 09:09 | Outpatient (CLI) | payer MEDICARE, OTHER, SELFPAY ==
--- NOTE | 2024-01-07 09:13 | DI.RAD.S_ITS ---
PROCEDURE: XR HAND LT MIN 3V INDICATIONS: PAIN IN HANDS TECHNIQUE: 3 views of the hand(s) acquired. COMPARISON: None. FINDINGS: Bones: No fractures or dislocations. Mild degenerative changes. Carpal bones are normally aligned. No suspicious bony lesions. Soft tissues: No suspicious soft tissue calcifications. IMPRESSION: No acute bony abnormality. Mild degenerative changes. Dictated by: Jamison Humphreys M.D. on 01/07/2024 at 11:06 Approved by: Jamison Humphreys M.D. on 01/07/2024 at 11:07
--- NOTE | 2024-01-07 09:13 | DI.RAD.S_ITS ---
PROCEDURE: XR HAND RT MIN 3V INDICATIONS: PAIN IN HANDS TECHNIQUE: 3 views of the hand(s) acquired. COMPARISON: [facility], CR, XR HAND LT MIN 3V, 01/07/2024, 9:21. FINDINGS: Bones: No fractures or dislocations. Mild degenerative changes, for example at the 2nd digit DIP joint. Carpal bones are normally aligned. No suspicious bony lesions. Soft tissues: No suspicious soft tissue calcifications. IMPRESSION: No acute bony abnormality. Mild degenerative changes. Dictated by: Jamison Humphreys M.D. on 01/07/2024 at 11:04 Approved by: Jamison Humphreys M.D. on 01/07/2024 at 11:06
== END ==
PROVIDERS: PCP Internal Medicine; Referring Provider Physician Assistant; Visit Provider Physician Assistant
DX: M79.641 Pain in right hand (principal); M79.642 Pain in left hand; M25.50 Pain in unspecified joint; G89.29 Other chronic pain
CPT/HCPCS: 73130

== ENCOUNTER → 2024-01-13 13:48 | Outpatient (CLI) | payer MEDICARE, OTHER, SELFPAY ==
--- NOTE | 2024-01-13 16:14 | PM.PROC.IR.1 ---
Date/Time/Diagnoses Date of procedure: 01/13/24 Time of procedure: 16:14 Pre-procedure diagnosis: 1. FACET ARTHROPATHY Post-procedure diagnosis: same Procedure Notes Procedure: 1. 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 Corea for treatment of Right Axial LBP. Physician: Justyn Diaz Total Fluoroscopy time (seconds): 16 Total sedation minutes: 17 Complications: none Procedure in detail & Post-procedure care: DESCRIPTION OF PROCEDURE Fluoroscopically guided, contrast-controlled right L5 and S1 medial branch blocks with 0.5cc of 0.5% Marcaine. Following review of allergy and review of potential side effects and complications, including, but not necessarily limited to, infection, allergic reaction, local tissue breakdown, nerve injury, paralysis, stroke and possible , the patient indicated that the patient understood and agreed to proceed. An informed consent document was signed by the patient, witnessed by a nurse, and placed in the patient's chart. After review of previous anaesthesic history and IV conscious sedation the patient was deemed safe to proceed with today?s procedure with IV conscious sedation as ASA class II designation. Safety time-out was performed to confirm patient ID, procedure to be performed and site of procedure. IV sedation was accomplished with a combination of 3mg of Versed was administered by the RN after DO order, titrated to patient comfort during the course of the procedure while the patient remained responsive to all verbal commands In the prone position, following sterile prep and drape of the lumbar region, the right L5 and S1 anatomical location of the medial branch of the dorsal ramus was identified fluoroscopically. Subsequently an anesthetic skin wheal using 1% lidocaine solution was initiated at each of the anatomical spots. Subsequently then a 22-gauge 3.5-inch spinal needle was atraumatically introduced and advanced under fluoroscopic guidance at each of the corresponding sites at the right L5 and S1 MB. After negative aspiration, 0.2 cc of Isovue 200 was injected, confirming placement without vascular or intrathecal uptake. Subsequently then 0.5 cc of 0.5% Marcaine solution was injected at each of the corresponding sites at the right L5 and S1 medial branch locations. The patient tolerated the procedure well without signs or symptoms of complications. The procedure tolerated the procedure well without signs or symptoms of complications prior to transfer to the recovery area continued monitoring without incident. Post-procedure, the patient was monitored initiating provocative activities to measure the amount of relief from block of the facetogenic pain. The patient reported a VAS of 7 prior to the procedure and a post-procedure VAS of 1. It has been a pleasure to assist in the diagnostic and therapeutic care of your patient. POST OP INSTRUCTIONS The patient was provided with a Pain Log to complete over the next several hours and subsequent days prior to the patient's follow up with the ordering physician. If the patient has stone lathe operator relief to the solution applied, then they may be a candidate for medial branch rhizotomy. The patient is aware, was provided, once again, with a Pain Log and will follow up with the referring physician for review and clinical correlation.
== END ==
PROVIDERS: PCP Internal Medicine; Referring Provider Physical Medicine & Rehabilitation; Visit Provider Physical Medicine & Rehabilitation
DX: M47.816 Spondylosis without myelopathy or radiculopathy, lumbar region (principal); Z53.9 Procedure and treatment not carried out, unspecified reason

== ENCOUNTER 2024-01-13 15:11 | Outpatient (CLI) | payer MEDICARE, OTHER, SELFPAY ==
[2024-01-13] VITALS (11 sets, daily range): BP systolic 114–152; BP diastolic 57–65; PULSE 60–64; RESP 11–20; TEMP 36.6; O2SAT 97–100
--- NOTE | 2024-01-13 15:00 | DI.RAD.S_ITS ---
PROCEDURE: PAIN L/SI FACET INJ/BLK 1STL INDICATIONS: Right L5 and S1 medial branch block LA COMPARISON: [facility], , PAIN L/SI FACET INJ/BLK 1STL, 01/01/2022, 11:44. FINDINGS: Fluoroscopic spot filming was performed to verify placement of spinal needles at the right L5 and S1 level(s), as labeled on the films. Appropriate location(s) of the needle tip(s) was confirmed by injection of iodinated contrast. IMPRESSION: Fluoro guidance was provided intraoperatively for right L5 and S1 medial branch block performed by ordering physician. Dictated by: Dave Bradley M.D. on 01/14/2024 at 9:44 Approved by: Dave Bradley M.D. on 01/14/2024 at 9:45
--- NOTE | 2024-01-13 15:15 | DI.RAD.S_ITS ---
PROCEDURE: PAIN SI JOINT INJECTION INDICATIONS: Right SI joint injection COMPARISON: None. FINDINGS: Fluoroscopic spot filming was performed to verify placement of spinal needles at the right sacroiliac joint, as labeled on the films. Appropriate location(s) of the needle tip(s) was confirmed by injection of iodinated contrast. IMPRESSION: Intra procedural examination demonstrating appropriate positions of the needles. Dictated by: Laim Coleman M.D. on 01/14/2024 at 9:19 Approved by: Liam Coleman M.D. on 01/14/2024 at 9:20
[2024-01-13] MEDS: MIDAZOLAM 2 MG/2 ML VIAL IV (15:51)
[2024-01-13] MEDS: iopamidoL 15 ML VIAL 3 ML INJ (15:57)
[2024-01-13] MEDS: BETAMETHASONE 30 MG/5 ML MDV 12 MG INJ (15:58)
[2024-01-13] MEDS: BUPIVACAINE 0.5% (PF) 10 ML VIAL 3 ML INJ (15:59)
[2024-01-13] MEDS: MIDAZOLAM 2 MG/2 ML VIAL 1 MG IV (16:02)
--- NOTE | 2024-01-13 16:14 | P.PCN_ITS ---
Date/Time/Diagnoses Date of procedure: 01/13/24 Time of procedure: 16:14 Pre-procedure diagnosis: 1. FACET ARTHROPATHY Post-procedure diagnosis: same Procedure Notes Procedure: 1. 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 Corea for treatment of Right Axial LBP. Physician: Justyn Diaz Total Fluoroscopy time (seconds): 16 Total sedation minutes: 17 Complications: none Procedure in detail & Post-procedure care: DESCRIPTION OF PROCEDURE Fluoroscopically guided, contrast-controlled right L5 and S1 medial branch blocks with 0.5cc of 0.5% Marcaine. Following review of allergy and review of potential side effects and complications, including, but not necessarily limited to, infection, allergic reaction, local tissue breakdown, nerve injury, paralysis, stroke and possible , the patient indicated that the patient understood and agreed to proceed. An informed consent document was signed by the patient, witnessed by a nurse, and placed in the patient's chart. After review of previous anaesthesic history and IV conscious sedation the patient was deemed safe to proceed with today?s procedure with IV conscious sedation as ASA class II designation. Safety time-out was performed to confirm patient ID, procedure to be performed and site of procedure. IV sedation was accomplished with a combination of 3mg of Versed was administered by the RN after DO order, titrated to patient comfort during the course of the procedure while the patient remained responsive to all verbal commands In the prone position, following sterile prep and drape of the lumbar region, the right L5 and S1 anatomical location of the medial branch of the dorsal ramus was identified fluoroscopically. Subsequently an anesthetic skin wheal using 1% lidocaine solution was initiated at each of the anatomical spots. Subsequently then a 22-gauge 3.5-inch spinal needle was atraumatically introduced and advanced under fluoroscopic guidance at each of the corresponding sites at the right L5 and S1 MB. After negative aspiration, 0.2 cc of Isovue 200 was injected, confirming placement without vascular or intrathecal uptake. Subsequently then 0.5 cc of 0.5% Marcaine solution was injected at each of the corresponding sites at the right L5 and S1 medial branch locations. The patient tolerated the procedure well without signs or symptoms of complications. The procedure tolerated the procedure well without signs or symptoms of complications prior to transfer to the recovery area continued monitoring without incident. Post-procedure, the patient was monitored initiating provocative activities to measure the amount of relief from block of the facetogenic pain. The patient reported a VAS of 7 prior to the procedure and a post-procedure VAS of 1. It has been a pleasure to assist in the diagnostic and therapeutic care of your patient. POST OP INSTRUCTIONS The patient was provided with a Pain Log to complete over the next several hours and subsequent days prior to the patient's follow up with the ordering physician. If the patient has scrap dealer relief to the solution applied, then they may be a candidate for medial branch rhizotomy. The patient is aware, was provided, once again, with a Pain Log and will follow up with the referring physician for review and clinical correlation.
--- NOTE | 2024-01-13 16:16 | P.PCN_ITS ---
Date/Time/Diagnoses Date of procedure: 01/13/24 Time of procedure: 16:16 Pre-procedure diagnosis: Sacroiliac joint pain/DJD Post-procedure diagnosis: same Procedure Notes Procedure: Fluoroscopically guided contrast controlled right sacroiliac joint injection Indications: Irasema is referred by Dr. Corea for treatment of right sacroiliac joint DJD Physician: Justyn Diaz Total Fluoroscopy time (seconds): 16 Total sedation minutes: 17 Complications: none Procedure in detail & Post-procedure care: DESCRIPTION OF PROCEDURE Fluoroscopically guided, contrast controlled right sacroiliac joint injection Following review of allergies and review of potential side effects and complications, including, but not necessarily limited to, infection, allergic reaction, local tissue breakdown, temporary as well as permanent nerve injury, paralysis, stroke and possible , the patient indicated that they understood and agreed to proceed. An informed consent was signed by the patient, witnessed by a nurse, and placed in the patient's chart. Additionally, other treatment options including modalities, medications, and physical therapy were reviewed with the patient. After review of previous anaesthesic history and IV conscious sedation the patient was deemed safe to proceed with today?s procedure with IV conscious sedation as ASA class II designation. Safety time-out was performed to confirm patient ID, procedure to be performed and site of procedure. IV sedation was accomplished with a combination of 3mg of Versed was administered by the RN after DO order, titrated to patient comfort during the course of the procedure while the patient remained responsive to all verbal commands In the prone position following sterile prep and drape of the pelvic region, the hyper lucency on in the inferior aspect of the sacroiliac joint was identified fluoroscopically the skin was anesthetized be a 25 gauge 1 eventual with approximately 2 cc of 1% lidocaine solution. At this point, a 22 gauge 3 in spinal needle was atraumatically introduced and advanced under fluoroscopic guidance into the inferior aspect of the right sacroiliac joint. Following negative aspiration, approximately 0.3cc of Isovue-300 was injected confirming intra-articular placement without vascular uptake. Radiographic data, including multiple fluoroscopic views of the pelvis, reveals a spinal needle in the sacroiliac joint hyper lucent zone. Subsequent view show flow contrast tear superiorly and inferiorly within the joint capsule without vascular intrathecal uptake. At this point a total of 1cc of 0.5% Marcaine was combined with 1cc of 6 mg of betamethasone was injected without incident. The procedure tolerated the procedure well without signs or symptoms of complications prior to transfer to the recovery area continued monitoring without incident. The patient was then transferred to the recovery area with a bur observed for an appropriate time after the injection. The patient reverted a vas score of 7 prior to the procedure and post-procedure vas of 1. POSTOP INSTRUCTIONS The patient was provided with a pain like to continue to record the patient's response to the target specific procedure prior to the patient's follow-up visit with the referring physician. Additionally, specific post injection care instructions and a contact number to our office were provided if concerns arise regarding the possible complications associated with procedure are suspected.
== END 2024-01-13 16:40 | disposition home or self-care (01) ==
PROVIDERS: PCP Internal Medicine; Referring Provider Physical Medicine & Rehabilitation; Visit Provider Physical Medicine & Rehabilitation
DX: M53.3 Sacrococcygeal disorders, not elsewhere classified (principal); M46.1 Sacroiliitis, not elsewhere classified; M47.817 Spondylosis without myelopathy or radiculopathy, lumbosacral region
CPT/HCPCS: 27096; 64493; 99152; J0702; J2250

== ENCOUNTER 2024-03-04 06:51 | Outpatient (CLI) | payer MEDICARE, OTHER, SELFPAY ==
[2024-03-04] VITALS (10 sets, daily range): BP systolic 109–138; BP diastolic 53–63; PULSE 56–62; RESP 13–24; TEMP 36.4; O2SAT 94–100
--- NOTE | 2024-03-04 08:00 | DI.RAD.S_ITS ---
PROCEDURE: PAIN L/SI FACET INJ/BLK 1STL INDICATIONS: Right L5 and S1 medial branch blocks SA COMPARISON: [facility], , PAIN L/SI FACET INJ/BLK 1STL, 01/13/2024, 15:55. FINDINGS: Fluoroscopic spot filming was performed to verify placement of spinal needles at the L5-S1 level(s), as labeled on the films. Appropriate location(s) of the needle tip(s) was confirmed by injection of iodinated contrast. IMPRESSION: Contrast and needle placement overlying L5-S1. Dictated by: Candida Scales M.D. on 03/04/2024 at 11:59 Approved by: Candida Scales M.D. on 03/04/2024 at 11:59
[2024-03-04] MEDS: MIDAZOLAM 2 MG/2 ML VIAL IV (08:20)
[2024-03-04] MEDS: MIDAZOLAM 2 MG/2 ML VIAL 1 MG IV (08:30)
[2024-03-04] MEDS: iopamidoL 15 ML VIAL 3 ML INJ (08:34)
[2024-03-04] MEDS: LIDOCAINE 2% INJ SDV 5ML 5 ML INJ (08:35)
--- NOTE | 2024-03-04 08:41 | PM.PROC.IR.1 ---
Date/Time/Diagnoses Date of procedure: 03/04/24 Time of procedure: 08:41 Pre-procedure diagnosis: Lumbar Facet Arthropathy Post-procedure diagnosis: same Procedure Notes Procedure: 1. Right L5 and S1 MB BLOCKS SA Indications: Irasema is referred by Dr. Corea for treatment of Right Axial LBP. Physician: Justyn Diaz Total Fluoroscopy time (seconds): 8 Total sedation minutes: 13 Complications: none Procedure in detail & Post-procedure care: DESCRIPTION OF PROCEDURE Fluoroscopically guided, contrast-controlled right L5 and S1 medial branch blocks with 0.5cc of 2% Lidocaine. Following review of allergy and review of potential side effects and complications, including, but not necessarily limited to, infection, allergic reaction, local tissue breakdown, nerve injury, paralysis, stroke and possible , the patient indicated that the patient understood and agreed to proceed. An informed consent document was signed by the patient, witnessed by a nurse, and placed in the patient's chart. After review of previous anaesthesic history and IV conscious sedation the patient was deemed safe to proceed with today?s procedure with IV conscious sedation as ASA class II designation. Safety time-out was performed to confirm patient ID, procedure to be performed and site of procedure. IV sedation was accomplished with a combination of 2mg of Versed and 50mcg of Fentanyl was administered by the RN after DO order, titrated to patient comfort during the course of the procedure while the patient remained responsive to all verbal commands In the prone position, following sterile prep and drape of the lumbar region, the right L5 and S1 anatomical location of the medial branch of the dorsal ramus was identified fluoroscopically. Subsequently an anesthetic skin wheal using 1% lidocaine solution was initiated at each of the anatomical spots. Subsequently then a 22-gauge 3.5-inch spinal needle was atraumatically introduced and advanced under fluoroscopic guidance at each of the corresponding sites at the right L5 and S1 MB. After negative aspiration, 0.2 cc of Isovue 200 was injected, confirming placement without vascular or intrathecal uptake. Subsequently then 0.5 cc of 2% Lidocaine solution was injected at each of the corresponding sites at the right L5 and S1 medial branch locations. The patient tolerated the procedure well without signs or symptoms of complications. The procedure tolerated the procedure well without signs or symptoms of complications prior to transfer to the recovery area continued monitoring without incident. Post-procedure, the patient was monitored initiating provocative activities to measure the amount of relief from block of the facetogenic pain. The patient reported a VAS of 7 prior to the procedure and a post-procedure VAS of 1. It has been a pleasure to assist in the diagnostic and therapeutic care of your patient. POST OP INSTRUCTIONS The patient was provided with a Pain Log to complete over the next several hours and subsequent days prior to the patient's follow up with the ordering physician. If the patient has price accuracy supervisor relief to the solution applied, then they may be a candidate for medial branch rhizotomy. The patient is aware, was provided, once again, with a Pain Log and will follow up with the referring physician for review and clinical correlation.
== END 2024-03-04 09:04 | disposition home or self-care (01) ==
PROVIDERS: PCP Internal Medicine; Referring Provider Physical Medicine & Rehabilitation; Visit Provider Physical Medicine & Rehabilitation
DX: M47.816 Spondylosis without myelopathy or radiculopathy, lumbar region (principal); M47.817 Spondylosis without myelopathy or radiculopathy, lumbosacral region
CPT/HCPCS: 64493; 64494; 99152; J2250

== ENCOUNTER → 2024-03-21 17:16 | Outpatient (CLI) | payer MEDICARE, OTHER, SELFPAY ==
--- NOTE | 2024-03-21 17:18 | DI.RAD.S_ITS ---
PROCEDURE: XR FOOT RT MIN 3V INDICATIONS: Right foot and ankle injury TECHNIQUE: 3 views of the foot were acquired. COMPARISON: None. FINDINGS: Bones: No fractures or dislocations. No suspicious bony lesions. Soft tissues: No tibiotalar joint effusion. Achilles tendon appears normal. IMPRESSION: Right foot without acute fracture or malalignment. If there are persistent symptoms or clinical suspicion for pathology, then repeat radiographs or advanced imaging (CT or MRI) may be considered for further evaluation. Dictated by: Hang Hankins M.D. on 03/21/2024 at 18:15 Approved by: Hang Hankins M.D. on 03/21/2024 at 18:15
--- NOTE | 2024-03-21 17:18 | DI.RAD.S_ITS ---
PROCEDURE: XR ANKLE RT MIN 3V INDICATIONS: Right foot and ankle injury TECHNIQUE: 3 views of the ankle were acquired. COMPARISON: None. FINDINGS: Bones: No fractures or dislocations. Ankle mortise is normally aligned. No suspicious bony lesions. Soft tissues: No tibiotalar joint effusion. Achilles tendon appears normal. IMPRESSION: No acute bony abnormality or significant effusion. If there are persistent symptoms or clinical suspicion for pathology, then repeat radiographs or advanced imaging (CT or MRI) may be considered for further evaluation. Dictated by: Hang Hankins M.D. on 03/21/2024 at 18:14 Approved by: Hang Hankins M.D. on 03/21/2024 at 18:15
== END ==
LOC: RAD 17:17
PROVIDERS: PCP Internal Medicine; Referring Provider Physician Assistant Surgical; Visit Provider Physician Assistant Surgical
DX: S99.921A Unspecified injury of right foot, initial encounter (principal); S99.911A Unspecified injury of right ankle, initial encounter; X58.XXXA Exposure to other specified factors, initial encounter
CPT/HCPCS: 73610; 73630

== ENCOUNTER 2024-06-10 10:12 | Outpatient (CLI) | payer MEDICARE, OTHER, SELFPAY ==
[2024-06-10] VITALS (10 sets, daily range): BP systolic 107–129; BP diastolic 54–69; PULSE 50–77; RESP 13–17; TEMP 36.4; O2SAT 99–100
--- NOTE | 2024-06-10 11:15 | DI.RAD.S_ITS ---
PROCEDURE: PAIN L/S MED/LAT N RFA INDICATIONS: Right L5 and S1 medial branch RFA COMPARISON: None. FINDINGS: Fluoroscopic spot filming was performed to verify placement of spinal needles at the L5-S1 level(s), as labeled on the films. Appropriate location(s) of the needle tip(s) was confirmed by injection of iodinated contrast. IMPRESSION: Needle placement overlying L5-S1 Dictated by: Candida Scales M.D. on 06/10/2024 at 21:03 Approved by: Candida Scales M.D. on 06/10/2024 at 21:03
[2024-06-10] MEDS: MIDAZOLAM 2 MG/2 ML VIAL 1 MG IV (12:31)
[2024-06-10] MEDS: fentaNYL 100 MCG/2 ML INJ 25 MCG IM (12:31)
[2024-06-10] MEDS: LIDOCAINE 1% 20 ML 5 ML INJ (12:35)
[2024-06-10] MEDS: BUPIVACAINE 0.5% (PF) 10 ML VIAL 5 ML INJ (12:35)
[2024-06-10] MEDS: fentaNYL 100 MCG/2 ML INJ 25 MCG IV (12:40)
--- NOTE | 2024-06-10 12:59 | P.PCN_ITS ---
Date/Time/Diagnoses Date of procedure: 07/07/24 Time of procedure: 12:59 Pre-procedure diagnosis: 1. RECALCITRANT FACET ARTHROPATHY Post-procedure diagnosis: same Procedure Notes Procedure: 1. RIGHT L5 MEDIAL BRANCH RADIOFREQUENCY NEUROTOMY AND RIGHT S1 DORSAL RAMUS BRANCH RADIOFREQUENCY NEUROTOMY Indications: Irasema is referred by Dr. Corea for treatment of facet arthropathy. Physician: Justyn Diaz Total Fluoroscopy time (seconds): 14 Total sedation minutes: 20 Complications: none Procedure in detail & Post-procedure care: DESCRIPTION OF PROCEDURE Right L5 medial branch radiofrequency neurotomy and right S1 dorsal ramus branch radiofrequency neurotomy under fluoroscopy with conscious sedation. The patient is well known to this clinic having undergone previous facet injections with good but temporary relief. The patient has experienced appropriate, concordant relief with previous facet and median branch blocks but the patient's pain has been recalcitrant to further conservative measures. Therefore, based upon the patient's relief and persistent symptoms, the patient is considered an appropriate candidate for facet rhizotomy. All of the patient's questions regarding the risks versus benefits of the procedure, including, but not limited to, bleeding, infection, temporary as well as lasting nerve injury, paralysis, stroke, and , as well treatment alternatives were answered to satisfaction. After review of previous anaesthesic history and IV conscious sedation the patient was deemed safe to proceed with today?s procedure with IV conscious sedation as ASA class II designation. Safety time-out was performed to confirm patient ID, procedure to be performed and site of procedure. IV sedation was accomplished with a combination of 1mg of Versed and 50mcg of Fentanyl was administered by the RN after DO order, titrated to patient comfort during the course of the procedure while the patient remained responsive to all verbal commands. After obtaining informed consent, denial of pertinent drug allergies, as well as being made aware of the potential risks of bleeding, infection, spinal cord trauma, paralysis, temporary and permanent nerve damage, seizure, stroke, and possible , the patient was brought to the fluoroscopy suite and positioned prone on the fluoroscopy table. The lumbar region was prepped with Betadine and covered with a fenestrated drape in the usual sterile fashion. Appropriate monitors applied including pulse oximeter, pulse, and blood pressure for regular monitoring throughout the procedure. After local infiltration using 1% lidocaine, under fluoroscopic guidance, a 10- cm RF insulated needle with a 10-mm active tip was positioned parallel to the junction of the right sacral ala and the superior articulating process where the S1 dorsal ramus resides. Needle placement was confirmed with sensory stimulation at 50 Hz, with motor stimulation of .5v on the right which produced local stimulation without radicular component. The stimulation was then increased to 2v with, once again, only local multifidus stimulation without radicular component. This was then followed by two discreet lesions performed at 80 degrees Celsius for 90 seconds each. The needle was then removed and the identical procedure was performed along the length of the right L5 medial branch with motor stimulation at .7v on the right. The patient tolerated the procedure well without signs or symptoms of complications prior to transfer to the recovery area continued monitoring without incident. The patient was then transferred to the recovery area where they were observed for an appropriate period of time after the injection. The patient was then transferred to the recovery area where they were observed for an appropriate period of time after the injection. The patient reported a VAS score of 10 prior to the procedure and a post- procedure VAS of 2. POST OP INSTRUCTIONS The patient was provided a Pain Log to continue to record the patient's response to the target-specific procedure prior to the patient's follow-up visit with the referring physician. Additionally, specific post-injection care instructions and a contact number to our office were provided if concerns arise regarding possible complications associated with the procedure are suspected.
== END 2024-06-10 13:33 | disposition home or self-care (01) ==
PROVIDERS: PCP Internal Medicine; Referring Provider Physical Medicine & Rehabilitation; Visit Provider Physical Medicine & Rehabilitation
DX: M47.817 Spondylosis without myelopathy or radiculopathy, lumbosacral region (principal); M47.816 Spondylosis without myelopathy or radiculopathy, lumbar region
CPT/HCPCS: 64635; 64636; 99152; J2250; J3010

== ENCOUNTER → 2024-06-11 14:34 | Outpatient (CLI) | payer MEDICARE, OTHER, SELFPAY ==
--- NOTE | 2024-06-11 15:40 | DI.RAD.S_ITS ---
PROCEDURE: XR DEXA AXIAL SKELETON INDICATIONS: Asymptomatic menopausal state COMPARISON: [facility], CR, XR DEXA AXIAL SKELETON, 05/31/2019, 10:54. FINDINGS: Lumbar Spine (L1-L3): Bone mineral density is 0.918 g/cm2, T score -0.9. Prior DEXA was performed using dissimilar scan type or analysis method. Left Hip: Bone mineral density is 0.797 g/cm2, T score -1.2. Prior DEXA was performed using dissimilar scan type or analysis method. Left Femoral Neck: Bone mineral density 0.674 g/cm2, T score -1.6. Left Forearm: Bone mineral density 0.647 g/cm2, T score -0.8. Fracture Risk Calculation (when applicable): 10-year fracture risk of a major osteoporotic fracture 11% and of a hip fracture 2.6%. (T score greater or equal to -1.0 to: NORMAL) (T score from -1.1 to -2.4: OSTEOPENIA) (T score less than or equal to -2.5: OSTEOPOROSIS) IMPRESSION: By WHO criteria, patient has osteopenia. Follow-up guidelines as follows: Osteoporosis: Consider a repeat DEXA and Vertebral Fracture Assessment (VFA) exam in 2 years or sooner if medically necessary, to reassess this patient's status. Osteopenia: Consider a repeat DEXA in 2-3 years to reassess this patient's status, or if there is a new clinical indication. Normal: Consider a repeat DEXA in 5 years or sooner, or if there is a new clinical indication. All treatment decisions require clinical judgment and consideration of individual patient factors, including patient preferences, comorbidities, previous drug use, risk factors not captured in the FRAX model (e.g., frailty, falls, vitamin D deficiency, increased bone turnover, interval significant decline in bone density ) and possible under- or over-estimation of fracture risk by FRAX. In addition, the NOF Guide recommends that FDA-approved medical therapies be considered in postmenopausal women and men age >= 50 years with a: * Hip or vertebral (clinical or morphometric) fracture * T-score of <=-2.5 at the spine or hip * Ten-year fracture probability by FRAX of >= 3% for hip fracture or >=20% for major osteoporotic fracture. People with diagnosed cases of osteoporosis or at high risk for fracture should have regular bone mineral density tests. For patients eligible for Medicare, routine testing is allowed once every 2 years. The testing frequency can be increased to one year for patients who have rapidly progressing disease, those who are receiving or discontinuing medical therapy to restore bone mass, or have additional risk factors. Approved by: Bong Gonsalves M.D. on 06/11/2024 at 21:29
== END ==
PROVIDERS: PCP Internal Medicine; Referring Provider Internal Medicine; Visit Provider Internal Medicine
DX: M85.852 Other specified disorders of bone density and structure, left thigh (principal); Z78.0 Asymptomatic menopausal state
CPT/HCPCS: 77080; 77081

== ENCOUNTER 2024-08-07 15:33 | Emergency (ER) | payer MEDICARE, OTHER, SELFPAY ==
[2024-08-07] VITALS (7 sets, daily range): BP systolic 139–153; BP diastolic 65–68; PULSE 49–68; RESP 16–18; TEMP 36.6; O2SAT 93–100; BMI 21.2
--- NOTE | 2024-08-07 15:49 | ED.BACK ---
HPI - Back Pain/Injury <Tiffany Santiago PA-C - Last Filed: 08/07/24 18:58> General Chief Complaint: Back Pain/Injury Stated Complaint: back px Time Seen by Provider: 08/07/24 15:47 Source: patient History of Present Illness HPI Narrative: 79-year-old female presents with right lower thoracic back pain since yesterday. She states she was lifting a box with her that was medium weight but she had to bend all the way over to the ground. Since that time she has had this constant pain rated 10/10. She points to her right costovertebral angle. She is denying any nausea, vomiting or abdominal pain. She states pain is worse when she presses on the area or if she tries to take a deep breath in. If she presses on her abdomen she can make her back hurt. She is denying any urinary symptoms, no issues with bowel or bladder. She did take a diazepam 10 mg about 1 hour prior to arrival as well as tramadol at 8:00 a.m. this morning usually these things work for her pre-existing back issues. She states it has not. Heat also did not work. She states ice generally makes things worse. History is significant for facet arthropathy, degenerative joint disease, lumbar fusion, recent injections and or ablation with Dr. Diaz's on June 10, 2024, bone density on June 11, 2024 shows osteopenia. Most of her back issues are in the lower region this she reports as new. She has been tapering off of her pain medication including gabapentin and tramadol on her own. She is denying any numbness, tingling, weakness or loss of sensation. No extremity involvement. She states she works out regularly at the gym and attends physical therapy regularly. She is very active. All other systems are reviewed and are negative. She is allergic to penicillin. Related Data Home Medications Medication Instructions Recorded Confirmed cholecalciferol (vitamin D3) 50 2,000 iu PO QDAY ##0 07/03/17 03/29/24 mcg (2,000 unit) capsule (Vitamin D3) folic acid 1 mg tablet 1 mg DAILY 01/04/19 03/29/24 levothyroxine 75 mcg tablet 75 mcg PO DAILY 04/12/21 03/29/24 atorvastatin 20 mg tablet 20 mg PO BEDTIME 12/26/21 03/29/24 triamcinolone acetonide 0.5 % 1 applic topical BID 05/05/23 03/29/24 topical cream gabapentin 600 mg tablet 600 mg PO BID 12/22/23 03/29/24 Previous Rx's Medication Instructions Recorded estradiol 2 mg (7.5 mcg/24 hour) 1 vag ring vaginal [id number] 04/14/23 vaginal ring (Estring) Vaginal atrophy #1 ea estradiol 0.01% (0.1 mg/gram) 1 g vaginal 2XW Vaginal atrophy 04/18/23 vaginal cream #42.5 grams diazepam 10 mg tablet (Valium) 10 mg PO .COMPLEX #7 tabs 03/29/24 tramadol 37.5 mg-acetaminophen 325 1 tab PO BID PRN Pain, Moderate 03/29/24 mg tablet #60 tabs trazodone 100 mg tablet 100 mg PO BEDTIME PRN insomnia #60 06/17/24 tabs ciprofloxacin HCl 500 mg tablet 500 mg PO BID #20 tabs 08/07/24 (Cipro) hydrocodone 5 mg-acetaminophen 325 1 tab PO Q6H PRN pain #14 tabs 08/07/24 mg tablet methocarbamol 500 mg tablet 500 mg PO TID 7 days #21 tabs 08/07/24 metronidazole 500 mg tablet 500 mg PO TID #30 tabs 08/07/24 Allergies Allergy/AdvReac Type Severity Reaction Status Date / Time Penicillins [PENICILLINS] Allergy Intermediate hives Verified 03/29/24 11:12 Review of Systems <Tiffany Santiago PA-C - Last Filed: 08/07/24 18:58> Review of Systems Narrative: All other systems reviewed and are negative. 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, lumbar region with neurogenic claudication Greater trochanteric bursitis of right hip Cervical radicular pain HNP (herniated nucleus pulposus), lumbar HNP (herniated nucleus pulposus), cervical Low back strain Facet arthropathy, cervical Arthropathy of thoracic facet joint Foraminal stenosis of thoracic region Foraminal stenosis of lumbar region Surgical History History of lumbar fusion H/O hysterectomy for benign disease Family History Brother Age: 78 Essential hypertension, hypertension with unspecified goal High cholesterol Brother Heart disease Essential hypertension, hypertension with unspecified goal High cholesterol Father Heart disease Diabetes mellitus Essential hypertension, hypertension with unspecified goal High cholesterol Grandmother Heart disease Cerebrovascular accident (CVA), unspecified mechanism Mother Heart disease Essential hypertension, hypertension with unspecified goal High cholesterol Mental health problem Cerebrovascular accident (CVA), unspecified mechanism Sister Age: 87 Heart disease Essential hypertension, hypertension with unspecified goal High cholesterol Cerebrovascular accident (CVA), unspecified mechanism Social History Smoking Status: Never smoker Smoking Status: Never smoker alcohol intake frequency: a few times a week Exam <Tiffany Santiago PA-C - Last Filed: 08/07/24 18:58> Initial Vital Signs Initial Vital Signs: Vital Signs Temperature 98 F 08/07/24 15:36 Pulse Rate 68 08/07/24 15:36 Respiratory Rate 16 08/07/24 15:36 Blood Pressure 139/65 08/07/24 15:36 Pulse Oximetry 100 08/07/24 15:36 Oxygen Delivery Method Room Air 08/07/24 15:36 Vital signs reviewed and are normal. Const General: No well developed and No acute distress Other: Patient is standing supporting herself on the recliner chair. She is conversing. Uncomfortable appearing but no obvious distress. Work of breathing is normal. Neck Neck: normal visual inspection and full ROM Other: No focal bony midline tenderness of the neck. Chest Chest: normal inspection of the chest, normal palpation of entire chest wall, No crepitus and No mass Resp Effort & Inspection: normal respiratory effort and able to speak in complete sentences Auscultation: clear to auscultation bilaterally, lung sounds not diminished, no rales, no rhonchi and no wheezes Cardio Rate: regular rate Rhythm: regular rhythm GI Inspection: normal to inspection, no edema and non-distended Palpation: soft, no hepatosplenomegaly and No aortic enlargement Percussion: normal to percussion Auscultation: normal bowel sounds Back/Spine/Pelvis Other: No bony midline tenderness of the thoracic spine, no interspace tenderness, no step-off, no swelling, discoloration or rash. Focal soft tissue tenderness of the right posterior costovertebral angle, no mass, no bony tenderness. Negative CVA tenderness with tap. Active range of motion is limited due to her pain. She has full extension. Skin General: no rashes or lesions noted <Laith Polanco MD - Last Filed: 08/08/24 02:52> Initial Vital Signs Initial Vital Signs: Vital Signs Temperature 98 F 08/07/24 15:36 Pulse Rate 68 08/07/24 15:36 Respiratory Rate 16 08/07/24 15:36 Blood Pressure 139/65 08/07/24 15:36 Pulse Oximetry 100 08/07/24 15:36 Oxygen Delivery Method Room Air 08/07/24 15:36 Course <Tiffany Santiago PA-C - Last Filed: 08/07/24 18:58> Orders Ordered: ED Orders 08/07/24 19:38 MR abdomen w con Stat Discontinued Medications Hydrocodone Bitart/Acetaminophen (Hydrocodone/Acet 5/325 Tablet) 1 tab PO NOW ONE Stop: 08/07/24 21:33 Last Admin: 08/07/24 21:37 Dose: 1 tab Documented By: BS Ciprofloxacin (Ciprofloxacin 250 Mg Tablet) 500 mg PO NOW ONE Stop: 08/07/24 19:49 Last Admin: 08/07/24 19:58 Dose: 500 mg Documented By: BS Hydromorphone HCl (Hydromorphone 0.5 Mg Inj) 0.5 mg IV NOW ONE Stop: 08/07/24 19:37 Last Admin: 08/07/24 19:47 Dose: 0.5 mg Documented By: BS Hydromorphone HCl (Hydromorphone 0.5 Mg Inj) 0.5 mg IV NOW ONE Stop: 08/07/24 20:24 Last Admin: 08/07/24 20:33 Dose: 0.5 mg Documented By: BS Ketorolac Tromethamine (Ketorolac 30 Mg/Ml Vial) 30 mg IM NOW ONE Stop: 08/07/24 16:15 Last Admin: 08/07/24 16:46 Dose: 30 mg Documented By: RB Methocarbamol (Methocarbamol 500 Mg Tablet) 500 mg PO NOW ONE Stop: 08/07/24 20:36 Last Admin: 08/07/24 20:47 Dose: 500 mg Documented By: ROLANDO Metronidazole (Metronidazole 500 Mg Tablet) 500 mg PO NOW ONE Stop: 08/07/24 19:49 Last Admin: 08/07/24 19:58 Dose: 500 mg Documented By: ROLANDO Reevaluation(s) Reevaluation #1: She had mild improvement with the Toradol but she is re-evaluated once more after she finally was able to provide a urine sample, she states her pain is now worse. She feels as if something is going on. She remained standing as her only position of comfort at this point. Pain has not changed in terms of location it is still on the right thoracic CVA. Vital signs remained normal. CT chest abdomen and pelvis were ordered along with labs and 12 lead ECG. Consultations Consultation #1: Discussed the case with attending physician Dr. Polanco, advised of the CT scan of chest, abdomen and pelvis order, results are pending. Transfer of care to Dr. Polanco. Vital Signs Vital signs: Vital Signs - 8 hr 08/07/24 19:52 08/07/24 20:00 08/07/24 20:30 Pulse Rate 60 58 L 56 L Respiratory Rate 18 Blood Pressure Pulse Oximetry 100 100 98 08/07/24 21:00 08/07/24 21:39 08/07/24 21:40 Pulse Rate 49 L 53 L Respiratory Rate Blood Pressure Pulse Oximetry 98 93 100 08/07/24 21:40 Pulse Rate Respiratory Rate 18 Blood Pressure 153/68 H Pulse Oximetry <aLith Polanco MD - Last Filed: 08/08/24 02:52> Orders Ordered: ED Orders 08/07/24 19:38 MR abdomen w con Stat Discontinued Medications Hydrocodone Bitart/Acetaminophen (Hydrocodone/Acet 5/325 Tablet) 1 tab PO NOW ONE Stop: 08/07/24 21:33 Last Admin: 08/07/24 21:37 Dose: 1 tab Documented By: ROLANDO Ciprofloxacin (Ciprofloxacin 250 Mg Tablet) 500 mg PO NOW ONE Stop: 08/07/24 19:49 Last Admin: 08/07/24 19:58 Dose: 500 mg Documented By: ROLANDO Hydromorphone HCl (Hydromorphone 0.5 Mg Inj) 0.5 mg IV NOW ONE Stop: 08/07/24 19:37 Last Admin: 08/07/24 19:47 Dose: 0.5 mg Documented By: BS Hydromorphone HCl (Hydromorphone 0.5 Mg Inj) 0.5 mg IV NOW ONE Stop: 08/07/24 20:24 Last Admin: 08/07/24 20:33 Dose: 0.5 mg Documented By: BS Ketorolac Tromethamine (Ketorolac 30 Mg/Ml Vial) 30 mg IM NOW ONE Stop: 08/07/24 16:15 Last Admin: 08/07/24 16:46 Dose: 30 mg Documented By: RB Methocarbamol (Methocarbamol 500 Mg Tablet) 500 mg PO NOW ONE Stop: 08/07/24 20:36 Last Admin: 08/07/24 20:47 Dose: 500 mg Documented By: BS Metronidazole (Metronidazole 500 Mg Tablet) 500 mg PO NOW ONE Stop: 08/07/24 19:49 Last Admin: 08/07/24 19:58 Dose: 500 mg Documented By: BS Vital Signs Vital signs: Vital Signs - 8 hr 08/07/24 19:52 08/07/24 20:00 08/07/24 20:30 Pulse Rate 60 58 L 56 L Respiratory Rate 18 Blood Pressure Pulse Oximetry 100 100 98 08/07/24 21:00 08/07/24 21:39 08/07/24 21:40 Pulse Rate 49 L 53 L Respiratory Rate Blood Pressure Pulse Oximetry 98 93 100 08/07/24 21:40 Pulse Rate Respiratory Rate 18 Blood Pressure 153/68 H Pulse Oximetry MDM - Back Pain/Injury <Tiffany Santiago PA-C - Last Filed: 08/07/24 18:58> Lab Data Lab results narrative: Urinalysis is negative for any blood or any other findings. CBC, troponin, lipase are normal, CMP shows a bump in her AST of 43 ALT of 38, creatinine 1.02 GFR 57. No prior recent lab work for comparison. 08/07/24 17:45 08/07/24 17:45 Labs: Lab Results 08/07/24 08/07/24 Range/Units 17:10 17:45 WBC 6.3 (4.5-11.0) X10^3/uL RBC 4.11 (4.0-5.2) X10^6/uL Hgb 13.3 (12.0-16.0) g/dL Hct 40.0 (36-46) % MCV 97.5 (80-100) fL MCH 32.3 (26-34) PG MCHC 33.1 (30-36) % RDW 13.4 (11.6-14.8) % Plt Count 167 (150-400) X10^3/uL Neut % (Auto) 53.5 (50-75) % Lymph % (Auto) 36.1 (25-40) % [place] % (Auto) 7.0 (3-14) % Eos % (Auto) 2.1 (2-4) % Baso % (Auto) 1.3 (0-2) % Neut # (Auto) 3400 (4528-2239) /uL Lymph # (Auto) 2300 (3033-7663) /uL [place] # (Auto) 400 (0-900) /uL Eos # (Auto) 100 (0-450) /uL Baso # (Auto) 100 (0-100) /uL Sodium 135 L (137-145) mmol/L Potassium 3.9 (3.4-5.1) mmol/L Chloride 99 (98-107) mmol/L Carbon Dioxide 31 (22-32) mmol/L BUN 19 H (7-17) mg/dL Creatinine 1.02 (0.52-1.04) mg/dL Estimated GFR 57 L (>60) mL/min BUN/Creatinine Ratio 18.6 (6-22) Glucose 99 (80-110) mg/dL Lactate 0.9 (0.7-2.1) mmol/L Calcium 9.2 (8.4-10.2) mg/dL Total Bilirubin 0.4 (0.2-1.3) mg/dL AST 43 H (14-36) IU/L ALT 38 H (<35) IU/L Alkaline Phosphatase 71 (38-126) U/L Troponin I < 0.012 (0.01-0.034) ng/mL Total Protein 6.7 (6.3-8.2) g/dL Albumin 4.4 (3.5-5.0) g/dL Globulin 2.3 (1.7-4.1) g/dL Albumin/Globulin Ratio 1.9 (1.0-2.8) Lipase 73 (23-300) U/L Urine Color Yellow Urine Appearance Clear Urine pH 5.5 (4.5-8.0) Ur Specific [place] 1.020 (1.000-1.035) Urine Protein Negative (Negative) Urine Glucose (UA) Negative (Negative) g/dL Urine Ketones Negative (NEGATIVE) Urine Occult Blood Negative (Negative) Urine Nitrate Negative (Negative) Urine Bilirubin Negative (NEGATIVE) Urine Urobilinogen 0.2 (0.2) E.U./dL Ur Leukocyte Esterase Negative (NEGATIVE) Urine RBC 0-1/hpf (0-5/HPF) Urine WBC 0-1/hpf (0-5/HPF) Ur Squamous Epith Cells 1-5 /hpf (0-5/HPF) Urine Bacteria None seen (None) Ur Culture Indicated? Cult not indicated Vol Urine Centrifuged 10ml (spun) Imaging Data Chest x-ray: My Impression: Deferred to radiologist's interpretation below. Radiologist's Impression: PROCEDURE: XR CHEST 2V INDICATIONS: right lower thoracic back pain, no trauma TECHNIQUE: 2 views of the chest were acquired. COMPARISON: None. FINDINGS: Surgical changes and devices: Partially seen cervical fusion hardware. A clip is seen projecting over the left chest. Lungs and pleura: No dense airspace disease or pleural effusions. Mediastinum: Normal heart size [id number] gastric distention with a fluid level. Bones and chest wall: Unremarkable IMPRESSION: No acute radiographic abnormality. Dictated by: Gibson Roca M.D. on 08/07/2024 at 16:12 Approved by: Gibson Roca M.D. on 08/07/2024 at 16:12 Thoracic spine x-ray: My Impression: Deferred to radiologist's interpretation below. Radiologist's Impression: PROCEDURE: XR THORACIC SPINE 3V INDICATIONS: Right lower thoracic back pain, no trauma. Hx osteopenia TECHNIQUE: 3 views of the thoracic spine were acquired. COMPARISON: None. FINDINGS: Bones: Mild overall degenerative changes. Partially seen lower cervical fusion hardware. Vertebral body heights are generally well maintained. No traumatic subluxation. Soft tissues: No suspicious calcifications. IMPRESSION: Mild overall degenerative changes. No acute radiographic abnormality. If there is high concern for further derangement, consider MRI evaluation. Dictated by: Gibson Roca M.D. on 08/07/2024 at 16:10 Approved by: Gibson Roca M.D. on 08/07/2024 at 16:11 ECG Data Interpretation: Twelve lead ECG shows a ventricular rate of 58 beats per minute sinus bradycardia, no ectopy, no ST segment changes, no P or T-wave abnormalities, normal access. [facility] Narrative Medical decision making narrative: My initial clinical impression was musculoskeletal as the pain was reproducible, she has a significant history of musculoskeletal issues and the pain occurred following bending over and lifting a box. She initially responded to Toradol, however her worsening pain, broadened my differential to include but not limited to abdominal, renal, or vascular process, et al, and she was sent for additional studies including CT of the chest, abdomen, pelvis. She has a normal ECG, her lab work was relatively normal except for AST of 43 ALT of 38, creatinine 1.02 GFR 57. Urinalysis was completely normal, troponin negative, lipase normal CBC normal. Care was transferred to the oncoming attending physician Dr. Polanco, report was given. <Laith Polanco MD - Last Filed: 08/08/24 02:52> Lab Data Labs: Lab Results 08/07/24 08/07/24 Range/Units 17:10 17:45 WBC 6.3 (4.5-11.0) X10^3/uL RBC 4.11 (4.0-5.2) X10^6/uL Hgb 13.3 (12.0-16.0) g/dL Hct 40.0 (36-46) % MCV 97.5 (80-100) fL MCH 32.3 (26-34) PG MCHC 33.1 (30-36) % RDW 13.4 (11.6-14.8) % Plt Count 167 (150-400) X10^3/uL Neut % (Auto) 53.5 (50-75) % Lymph % (Auto) 36.1 (25-40) % [place] % (Auto) 7.0 (3-14) % Eos % (Auto) 2.1 (2-4) % Baso % (Auto) 1.3 (0-2) % Neut # (Auto) 3400 (8175-2383) /uL Lymph # (Auto) 2300 (5371-0522) /uL [place] # (Auto) 400 (0-900) /uL Eos # (Auto) 100 (0-450) /uL Baso # (Auto) 100 (0-100) /uL Sodium 135 L (137-145) mmol/L Potassium 3.9 (3.4-5.1) mmol/L Chloride 99 (98-107) mmol/L Carbon Dioxide 31 (22-32) mmol/L BUN 19 H (7-17) mg/dL Creatinine 1.02 (0.52-1.04) mg/dL Estimated GFR 57 L (>60) mL/min BUN/Creatinine Ratio 18.6 (6-22) Glucose 99 (80-110) mg/dL Lactate 0.9 (0.7-2.1) mmol/L Calcium 9.2 (8.4-10.2) mg/dL Total Bilirubin 0.4 (0.2-1.3) mg/dL AST 43 H (14-36) IU/L ALT 38 H (<35) IU/L Alkaline Phosphatase 71 (38-126) U/L Troponin I < 0.012 (0.01-0.034) ng/mL Total Protein 6.7 (6.3-8.2) g/dL Albumin 4.4 (3.5-5.0) g/dL Globulin 2.3 (1.7-4.1) g/dL Albumin/Globulin Ratio 1.9 (1.0-2.8) Lipase 73 (23-300) U/L Urine Color Yellow Urine Appearance Clear Urine pH 5.5 (4.5-8.0) Ur Specific [place] 1.020 (1.000-1.035) Urine Protein Negative (Negative) Urine Glucose (UA) Negative (Negative) g/dL Urine Ketones Negative (NEGATIVE) Urine Occult Blood Negative (Negative) Urine Nitrate Negative (Negative) Urine Bilirubin Negative (NEGATIVE) Urine Urobilinogen 0.2 (0.2) E.U./dL Ur Leukocyte Esterase Negative (NEGATIVE) Urine RBC 0-1/hpf (0-5/HPF) Urine WBC 0-1/hpf (0-5/HPF) Ur Squamous Epith Cells 1-5 /hpf (0-5/HPF) Urine Bacteria None seen (None) Ur Culture Indicated? Cult not indicated Vol Urine Centrifuged 10ml (spun) MDM Narrative Medical decision making narrative: My initial clinical impression was musculoskeletal as the pain was reproducible, she has a significant history of musculoskeletal issues and the pain occurred following bending over and lifting a box. She initially responded to Toradol, however her worsening pain, broadened my differential to include but not limited to abdominal, renal, or vascular process, et al, and she was sent for additional studies including CT of the chest, abdomen, pelvis. She has a normal ECG, her lab work was relatively normal except for AST of 43 ALT of 38, creatinine 1.02 GFR 57. Urinalysis was completely normal, troponin negative, lipase normal CBC normal. Care was transferred to the oncoming attending physician Dr. Polanco, report was given. 08/07/2024, 08/12/1999, [place]. Sign-out from TATA Santiago. Chest abdomen and pelvis imaging requested. Results pending. CT chest abdomen and pelvis with IV contrast. Impressions: ?No acute traumatic injury identified. No displaced fracture. Degenerative changes of the spine, without traumatic subluxation or acute vertebral body height loss. There are also postsurgical changes. If there is high concern for further derangement, consider MRI evaluation. No hydronephrosis. No solid renal mass. Possible findings of distal gastritis and distal colitis (versus underdistention artifact. Mildly distended biliary system measuring 8-9 mm at the common bile duct, correlate LFTs.. See radiology report. Patient still having pain after Toradol, IV Dilaudid ordered. Unclear significance of biliary ductal dilatation, consider MRCP. Patient would like to proceed, ordered. MRI not available at today.. Patient informed. History of penicillin allergy. We will treat for colitis for now with oral Cipro/Flagyl, 1st doses given now, prescription sent to pharmacy Still having pain, repeat Dilaudid, we will add oral methocarbamol/Robaxin if there is musculoskeletal component muscle spasm related to any of her discomfort. Patient improved in symptoms, able to ambulate, move more freely, looks more comfortable. Discharged home with . Prescription sent for further pain medications if needed, antibiotics ciprofloxacin and Flagyl, as well as muscle relaxant methocarbamol to use if needed. Return precautions discussed Discharge Plan Departure Patient Disposition: Home Clinical Impression: Right flank pain, Colitis Activity Restrictions/Additional Instructions: Right-sided flank pain of unclear etiology. EKG and blood testing not suggestive of heart attack. Urinalysis not suggestive of urinary infection. CT chest abdomen and pelvis imaging was performed, there was some dilation of your common bile duct of unclear significance. No inflammatory changes noted to your pancreas nor liver. There was some inflammation of your colon, suggestive of colitis, no abscess or obstruction or perforation changes. It is possible that colitis might be the cause of your discomfort. It is possible that there might be some musculoskeletal or some other etiology. For now we will treat with antibiotics for possible colitis as cause of your symptoms, you are allergic to penicillin, we will use oral ciprofloxacin and metronidazole/Flagyl antibiotics, 1st doses given in the emergency department, further course sent to your pharmacy. Please do not drink alcohol with Flagyl as it can cause nausea and vomiting interaction with alcohol. Take antibiotics as directed. We did give muscle relaxant Robaxin/methocarbamol in the emergency department, further doses to use at home. Continue your gabapentin. Consider replacement of your tramadol with hydrocodone/acetaminophen, home pack of medications provided, prescription sent for the next few days. Consider resumption of your tramadol early next week. We did discussed MRI imaging of the abdomen pelvis but it this not available at this hour. Your symptoms improved and you are able to ambulate and take oral medications. Your liver functions and lipase tests were not markedly elevated, not suggestive of pancreatitis or significant biliary obstruction like changes at this time. Unclear significance of your common bile duct dilatation, but this could in theory also be a cause of some symptoms. Follow up for now as an outpatient. Recheck symptoms with your regular doctor advised early mid next week. Return earlier to this/nearest emergency department for any change worsening symptoms or any concerns prior Prescriptions: New ciprofloxacin HCl [Cipro] 500 mg tablet 500 mg PO BID Qty: 20 0RF metronidazole 500 mg tablet 500 mg PO TID Qty: 30 0RF methocarbamol 500 mg tablet 500 mg PO TID 7 Days Qty: 21 0RF hydrocodone-acetaminophen 5-325 mg tablet 1 tab PO Q6H PRN (Reason: pain) Qty: 14 0RF No Action cholecalciferol (vitamin D3) [Vitamin D3] 2,000 UNIT capsule 2,000 iu PO QDAY Qty: 0 estradiol 0.01 % (0.1 mg/gram) cream 1 g vaginal 2XW Qty: 42.5 3RF trazodone 100 mg tablet 100 mg PO BEDTIME PRN (Reason: insomnia) Qty: 60 2RF Estring 2 mg (7.5 mcg /24 hour) ring 1 vag ring vaginal [id number] Qty: 1 4RF folic acid 1 mg Tablet 1 mg DAILY levothyroxine 75 mcg Tablet 75 mcg PO DAILY atorvastatin 20 mg tablet 20 mg PO BEDTIME triamcinolone acetonide 0.5 % cream 1 applic topical BID gabapentin 600 mg tablet 600 mg PO BID tramadol-acetaminophen 37.5-325 mg tablet 1 tab PO BID PRN (Reason: Pain, Moderate) Qty: 60 2RF diazepam [Valium] 10 mg tablet 10 mg PO .COMPLEX MDD 3 tabs Qty: 7 0RF Rx Instructions: 1 to 2 tabs 1hr prior to spinal procedure. May take an additional tab if steroid flare experienced the night after the procedure. Referrals: Stormy Corea MD [Primary Care Provider] - Stand Alone Forms: Patient Portal/API/Survey
--- NOTE | 2024-08-07 16:13 | DI.RAD.S_ITS ---
PROCEDURE: XR THORACIC SPINE 3V INDICATIONS: Right lower thoracic back pain, no trauma. Hx osteopenia TECHNIQUE: 3 views of the thoracic spine were acquired. COMPARISON: None. FINDINGS: Bones: Mild overall degenerative changes. Partially seen lower cervical fusion hardware. Vertebral body heights are generally well maintained. No traumatic subluxation. Soft tissues: No suspicious calcifications. IMPRESSION: Mild overall degenerative changes. No acute radiographic abnormality. If there is high concern for further derangement, consider MRI evaluation. Dictated by: Gibson Roca M.D. on 08/07/2024 at 16:10 Approved by: Gibson Roca M.D. on 08/07/2024 at 16:11
--- NOTE | 2024-08-07 16:13 | DI.RAD.S_ITS ---
PROCEDURE: XR CHEST 2V INDICATIONS: right lower thoracic back pain, no trauma TECHNIQUE: 2 views of the chest were acquired. COMPARISON: None. FINDINGS: Surgical changes and devices: Partially seen cervical fusion hardware. A clip is seen projecting over the left chest. Lungs and pleura: No dense airspace disease or pleural effusions. Mediastinum: Normal heart size [id number] gastric distention with a fluid level. Bones and chest wall: Unremarkable IMPRESSION: No acute radiographic abnormality. Dictated by: Gibson Roca M.D. on 08/07/2024 at 16:12 Approved by: Gibson Roca M.D. on 08/07/2024 at 16:12
[2024-08-07] MEDS: KETOROLAC 30 MG/ML VIAL IM (16:46)
[2024-08-07 17:21] LABS: Appearance Urine UA CLEAR; Bilirubin Urine UA NEGATIVE (NEGATIVE); Color Urine UA YELLOW; Glucose Urine UA NEGATIVE (Negative); Ketones Urine UA NEGATIVE (NEGATIVE); Leukocyte Esterase Urine UA NEGATIVE (NEGATIVE); Nitrite Urine UA NEGATIVE (Negative); Occult Blood Urine UA NEGATIVE (Negative); Protein Urine UA NEGATIVE (Negative); Urobilinogen Urine UA 0.2 E.U./dL (0.2)
[2024-08-07 17:36] LABS: pH Urine UA 5.5 (4.5-8.0)
--- NOTE | 2024-08-07 17:40 | DI.CT.S_ITS ---
PROCEDURE: CT CHEST ABD PEL W CON INDICATIONS: worsening right thoracic back pain/CVA, normal UA TECHNIQUE: After the administration of intravenous contrast, 5 mm thick sections acquired from the lung apices to the symphysis. 5 mm coronal and sagittal reformats were performed, with additional 7 mm MIP reformats through the lungs. For radiation dose reduction, the following was used: automated exposure control, adjustment of mA and/or kV according to patient size. COMPARISON: [facility], MR, MR HIP RIGHT WITHOUT CONTRAST, 06/15/2024, 18:13. [facility], MR, MR LUMBAR SPINE WITHOUT CONTRAST, 06/15/2024, 17:06. [facility], CT, CT ABDOMEN PELVIS W CON, 04/12/2023, 13:26. FINDINGS: Image quality: Diagnostic Lungs and pleura: No dense airspace disease. No pleural effusions. Scattered scarring and atelectasis. Scattered micro nodules and possible pulmonary granulomas, for example in the right image /. Measuring 2-3 millimeters. Follow-up is consider optional for high risk patients in 1 year. Mediastinum, heart, and esophagus: Coronary calcifications. Heart size is within normal limits. Unremarkable esophagus. No pathologic lymph nodes by size criteria. Chest wall and thyroid: Small dystrophic calcification the left breast. Chest wall is unremarkable. Liver: Unremarkable Gallbladder and biliary system: Unremarkable, mildly distended biliary system with CBD measuring up to 8-9 millimeters. Pancreas: Mildly ectatic pancreatic duct at the head, without obstructing mass seen Spleen: Nonenlarged Adrenals: No discrete nodules Kidneys: No solid mass. No hydronephrosis. No obstructing calcified stone. Vessels and lymph nodes: The main portal vein is patent. There is mixing artifact in the IVC. No abdominal aortic aneurysm. No pathologic lymph nodes by size criteria. 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 Bowel and peritoneum: No evidence of small bowel obstruction. Mild wall thickening of the distal stomach is nonspecific. No pathologic ascites. No drainable abscess. There are colonic diverticula, without CT signs of significant acute inflammation. Mild possible distal colonic wall thickening is present. The appendix appears nondilated. Body wall: Unremarkable Pelvis: Under distended bladder is not well assessed. The uterus is not seen. Bones: Right hip arthroplasty. There are degenerative changes. Lumbar fusion hardware also present. No acute displaced fractures identified thoracic degenerative changes. Partially seen cervical fusion hardware also present. IMPRESSION: No acute traumatic injury identified. No displaced fracture. Degenerative changes of the spine, without traumatic subluxation or acute vertebral body height loss. There are also postsurgical changes. If there is high concern for further derangement, consider MRI evaluation. No hydronephrosis. No solid renal mass. Possible findings of distal gastritis and distal colitis (versus under distention artifact). Mildly distended biliary system measuring 8-9 millimeters at the CBD, correlate LFTs. Other findings above. Dictated by: Gibson Roca M.D. on 08/07/2024 at 17:55 Approved by: Gibson Roca M.D. on 08/07/2024 at 18:06
--- NOTE | 2024-08-07 17:42 | EKG_ITS ---
[place] [address] [address] [place] [id number] Test Date: 2024-08-07 Pat Name: Irasema Espinoza Department: [facility] Room: Gender: Female Health Care Law Specialist: MIKI : 1945 Requested By: Order Number: [id number] Reading MD: aCin Crowell Measurements Intervals [place] Rate: 58 P: 77 TN: 190 QRS: 72 QRSD: 84 T: 68 QT: 418 QTc: 410 Interpretive Statements Sinus bradycardia Electronically Signed On 08-08-2024 14:31:46 PST by Cain Crowell
[2024-08-07 17:55] LABS: Bacteria Urine None Seen; Culture Indicated Urine Cult Not Indicated; RBC Urine 0-1/HPF (0-5/HPF); Squamous Epithelial Cell Urine 1-5 /HPF (0-5/HPF); Urine Volume 10mL (spun); WBC Urine 0-1/HPF (0-5/HPF)
[2024-08-07 17:57] LABS: Add Manual Diff / Slide Review NO; Basophils Absolute Auto 100 /uL (0-100); Basophils Percent Auto 1.3 % (0-2); Eosinophils Absolute Auto 100 /uL (0-450); Eosinophils Percent Auto 2.1 % (2-4); Hemoglobin 13.3 g/dL (12.0-16.0); Lymphocytes Absolute Auto 2300 /uL (1100-4500); Lymphocytes Percent Auto 36.1 % (25-40); Mean Corpuscular HGB Conc 33.1 % (30-36); Mean Corpuscular Hemoglobin 32.3 PG (26-34); Mean Corpuscular Volume 97.5 fL (80-100); Monocytes Absolute Auto 400 /uL (0-900); Neutrophils Absolute Auto 3400 /uL (1500-7000); Neutrophils Percent Auto 53.5 % (50-75); Platelet Count 167 X10^3/uL (150-400); Red Blood Cell Count 4.11 X10^6/uL (4.0-5.2); Red Cell Distribution Width 13.4 % (11.6-14.8); White Blood Cell Count 6.3 X10^3/uL (4.5-11.0)
[2024-08-07 18:09] LABS: Alanine Aminotransferase 38 IU/L (<35); Albumin 4.4 g/dL (3.5-5.0); Albumin Globulin Ratio 1.9 (1.0-2.8); Alkaline Phosphatase 71 U/L (38-126); Aspartate Aminotransferase 43 IU/L (14-36); BUN Creatinine Ratio 18.6 (6-22); Bilirubin Total 0.4 mg/dL (0.2-1.3); Blood Urea Nitrogen 19 mg/dL (7-17); Calcium 9.2 mg/dL (8.4-10.2); Carbon Dioxide 31 mmol/L (22-32); Chloride 99 mmol/L (98-107); Estimated Glomerular Filt Rate 57 mL/min (>60); Globulin 2.3 g/dL (1.7-4.1); Glucose 99 mg/dL (80-110); HEMOLYSIS < 15 (0-50); Lactate (Lactic Acid) 0.9 mmol/L (0.7-2.1); Lipase 73 U/L (23-300); Potassium 3.9 mmol/L (3.4-5.1); Sodium 135 mmol/L (137-145); Total Protein 6.7 g/dL (6.3-8.2)
[2024-08-07 18:20] LABS: Troponin I < 0.012 ng/mL (0.01-0.034)
[2024-08-07] MEDS: HYDROMORPHONE 0.5 MG INJ IV ×2 (19:47→20:33)
[2024-08-07] MEDS: metroNIDAZOLE 500 MG TABLET PO (19:58)
[2024-08-07] MEDS: CIPROFLOXACIN 250 MG TABLET 500 MG PO (19:58)
--- NOTE | 2024-08-07 20:33 | PC.NURSE ---
patient ambulated to and from the bathroom with steady gait.
[2024-08-07] MEDS: methocarbamoL 500 MG TABLET PO (20:47)
[2024-08-07] MEDS: HYDROCODONE/ACET 5/325 TABLET 1 TAB PO (21:37)
== END 2024-08-07 21:58 | disposition home or self-care (01) ==
PROVIDERS: Physician Assistant Medical; Emergency Provider Emergency Medicine; PCP Internal Medicine
DX: M54.6 Pain in thoracic spine (principal); K52.9 Noninfective gastroenteritis and colitis, unspecified; M47.812 Spondylosis without myelopathy or radiculopathy, cervical region; M16.11 Unilateral primary osteoarthritis, right hip; M47.816 Spondylosis without myelopathy or radiculopathy, lumbar region; Z88.0 Allergy status to penicillin; Z98.1 Arthrodesis status
CPT/HCPCS: 36415; 71046; 71260; 72072; 74177; 80053; 81001; 83605; 83690; 84484; 85025; 93005; 96372; 96374; 96376; 99284; J1171; J1885; Q9967

== ENCOUNTER 2025-01-18 13:27 | Outpatient (CLI) | payer MEDICARE, OTHER, SELFPAY ==
[2025-01-18] VITALS (8 sets, daily range): BP systolic 117–171; BP diastolic 55–68; PULSE 59–66; RESP 14–16; TEMP 36.1; O2SAT 16–100
[2025-01-18] MEDS: MIDAZOLAM 2 MG/2 ML VIAL IV (15:54)
[2025-01-18] MEDS: DEXAMETHASONE 10 MG/ML VIAL 30 MG INJ (15:57)
[2025-01-18] MEDS: iopamidoL 15 ML VIAL 3 ML INJ (15:57)
[2025-01-18] MEDS: BUPIVACAINE 0.25% (PF) VIAL 2 ML INJ (15:58)
--- NOTE | 2025-01-18 16:13 | PM.PROC.IR.1 ---
Date/Time/Diagnoses Date of procedure: 01/18/25 Time of procedure: 16:13 Pre-procedure diagnosis: Thoracic stenosis with HNP Post-procedure diagnosis: same Procedure Notes Procedure: Fluoroscopic guided, contrast controlled T9/10 translaminar epidural steroid injection with conscious sedation. Indications: Irasema is referred by Dr. Corea for treatment of thoracic DDD/DJD with radiculopathy Physician: Justyn Diaz Total Fluoroscopy time (seconds): 14 Total sedation minutes: 14 Complications: none Procedure in detail & Post-procedure care: DESCRIPTION OF PROCEDURE Fluoroscopic guided, contrast controlled T9/10 translaminar epidural steroid injection with conscious sedation. Following review of allergy review potential side effects and complications, including, but not necessarily limited to, infection, allergic reaction, local tissue breakdown, temporary as well as permanent nerve injury, stroke, paralysis and possible , the patient indicated that they understood and agreed to proceed. An informed consent document was signed by the patient, witnessed by the nurse, and placed in the patient's chart. Additionally other treatment options including modalities, medications and physical therapy were reviewed with the patient. After review of previous anaesthesic history and IV conscious sedation the patient was deemed safe to proceed with today's procedure with IV conscious sedation as ASA class II designation. Safety time-out was performed to confirm patient ID, procedure to be performed and site of procedure. IV sedation was accomplished with a combination of 2mg of Versed administered by the RN after DO order, titrated to patient comfort during the course of the procedure while the patient remained responsive to all verbal commands In the prone position, following sterile prep and drape of the thoracic region the T9/10 translaminar space was identified fluoroscopically. The skin was anesthetized via 25 gauge 1.5inch needle with 1% lidocaine solution. At this point a 22gauge epidural needle was atraumatically introduced and advanced under fluoroscopic guidance into the region of the T8-9 translaminar space depth was confirmed on lateral view. Radiographic data, including multiple fluoroscopic views of the thoracic spine, reveals spinal needle at the T9/10 translaminar space. Lateral views then showed the placement of the needle in the epidural space. Subsequent view show contrast material flowing superiorly and inferiorly in the epidural space. No vascular or intrathecal uptake is observed. At this point using loss of resistance technique with saline and the epidural space was entered. This was confirmed followed negative aspiration and injection of approximately 1.5cc of Isovue 200 showed excellent epidural flow without vascular or intrathecal uptake. At this point, 1cc of 0.25%marcaine solution was admitted as a test dose and the patient was observed for an appropriate period of time without signs or symptoms of complications, including abdominal pain, shortness of breath, bilateral upper and lower extremity weakness, nausea and vomiting, prior to steroid injection. Subsequently, 3cc or 30mg of dexamethasone was then injected without incident. The patient tolerated the procedure well without signs of complications and subsequently was transferred to the recovery room for further monitoring. The patient was then transferred to the recovery area with their observed for an appropriate time after the injection. Patient reported a VAS score of 7 prior to the procedure and post-procedure VAS of 2.
== END 2025-01-18 16:28 | disposition home or self-care (01) ==
PROVIDERS: PCP Internal Medicine; Referring Provider Physical Medicine & Rehabilitation; Visit Provider Physical Medicine & Rehabilitation
DX: M48.04 Spinal stenosis, thoracic region (principal); M51.14 Intervertebral disc disorders with radiculopathy, thoracic region; M47.24 Other spondylosis with radiculopathy, thoracic region
CPT/HCPCS: 62321; 99152; J1100; J2250

== ENCOUNTER 2025-04-28 08:02 | Outpatient (CLI) | payer MEDICARE, OTHER, SELFPAY ==
[2025-04-28] VITALS (8 sets, daily range): BP systolic 110–133; BP diastolic 50–61; PULSE 52–65; RESP 12–18; TEMP 36.3; O2SAT 92–100
[2025-04-28] MEDS: MIDAZOLAM 2 MG/2 ML VIAL IV (10:00)
[2025-04-28] MEDS: MIDAZOLAM 2 MG/2 ML VIAL 1 MG IV (10:10)
--- NOTE | 2025-04-28 10:19 | P.PCN_ITS ---
Date/Time/Diagnoses Date of procedure: 04/28/25 Time of procedure: 10:19 Pre-procedure diagnosis: 1. FORAMINAL STENOSIS WITH LE SYMPTOMS Post-procedure diagnosis: same Procedure Notes Procedure: 1. FLUOROSCOPICALLY GUIDED CONTRAST CONTROLLED TRANSFORAMINAL EPIDURAL STEROID INJECTION - RIGHT T9/10 TFESI Indications: Irasema is referred by Dr. Corea for treatment of Foraminal Stenosis with Right thoracic Symptoms Physician: Justyn Diaz Total Fluoroscopy time (seconds): 10 Total sedation minutes: 16 Complications: none Procedure in detail & Post-procedure care: FINDINGS Foraminal Nerve Root Compression secondary to disc disease and facet hypertrophy DESCRIPTION OF PROCEDURE Following review of allergy and review of potential side effects and complications, including, but not necessarily limited to, infection, allergic reaction, local tissue breakdown, stroke, temporary or permanent nerve injury, paralysis, and possible , the patient indicated that the patient understood and agreed to proceed. An informed consent document was signed by the patient, witnessed by a nurse, and placed in the patient's chart. Additionally, other treatment options including medications, modalities, and physical therapy were reviewed with the patient. After review of previous anaesthesic history and IV conscious sedation the patient was deemed safe to proceed with today?s procedure with IV conscious sedation as ASA class II designation. Safety time-out was performed to confirm patient ID, procedure to be performed and site of procedure. IV sedation was accomplished with a combination of 3mg of Versed was administered by the RN after DO order, titrated to patient comfort during the course of the procedure while the patient remained responsive to all verbal commands In the prone position following sterile prep and drape of the lumbar region, the right T9/10 posterior neuroforamen was identified fluoroscopically. The skin was anesthetized via a 25-gauge 1.5-inch needle with 1% lidocaine solution. At this point, a 25-gauge 3.5-inch spinal needle was atraumatically introduced and advanced under fluoroscopic guidance through the posterior right T8-9 neuroforamen to approximately the anterior aspect of the canal. Depth was confirmed on lateral view. Following negative aspiration, injection of approximately 1.5cc of Isovue 200 under live fluoroscopy in the AP view confirmed excellent flow along the nerve root, into the epidural space without vascular or intrathecal uptake observed Radiological data, including multiple fluoroscopic views reveal the needle placement in the right T9/10 posterior neuroforamen. Subsequent views show flow of contrast material flowing superiorly and inferiorly along the nerve root confirming epidural flow. Subsequently, a test dose of 1.5cc of 0.25% marcaine solution was administered and patient was observed for signs or symptoms of complications, including abdominal pain, shortness of breath, bilateral upper or lower extremity weakness, nausea and vomiting, prior to steroid injection. At this point, a total of 3cc or 30mg of dexamethasone was injected without incident. The procedure tolerated the procedure well without signs or symptoms of complications prior to transfer to the recovery area continued monitoring without incident. The patient was then transferred to the recovery area where they were observed for an appropriate time after the injection. The patient reported a VAS score of 7 prior to the procedure and a post- procedure VAS of 0. POST OP INSTRUCTIONS The patient was provided a Pain Log to continue to record their response to the target-specific procedure prior to follow-up visit with their referring physician. Additionally, specific post-injection care instructions and a contact number to our office were provided if concerns arise regarding possible complications associated with the procedure are suspected.
== END 2025-04-28 11:24 | disposition home or self-care (01) ==
PROVIDERS: PCP Internal Medicine; Referring Provider Internal Medicine; Visit Provider Physical Medicine & Rehabilitation
DX: M48.04 Spinal stenosis, thoracic region (principal); M51.14 Intervertebral disc disorders with radiculopathy, thoracic region; M47.24 Other spondylosis with radiculopathy, thoracic region
CPT/HCPCS: 64479; 99152; J1100; J2250

== ENCOUNTER → 2025-05-20 15:20 | Outpatient (CLI) | payer MEDICARE, OTHER, SELFPAY ==
--- NOTE | 2025-05-20 15:21 | DI.MRI.S_ITS ---
PROCEDURE: MR LUMBAR SPINE WO CON INDICATIONS: status post lumbar spinal arthrodesis TECHNIQUE: Noncontrast sagittal T1 spin echo and T2 fast echo, sagittal STIR, and T2 fast spin echo through the lumbar spine. In cases with scoliosis, additional coronal T2 fast spin echo may be performed. COMPARISON: [facility], MR, MR LUMBAR SPINE WITHOUT CONTRAST, 06/15/2024, 17:06. [facility], MR, MR LUMBAR SPINE WITH/WITHOUT CONTRAST, 06/17/2023, 18:22. [facility], MR, MR LUMBAR SPINE WO CON, 08/29/2021, 17:49. [facility], CT, CT ABDOMEN PELVIS WITH CONTRAST, 08/08/2024, 16:26. [facility], MR, MR LUMBAR SPINE WO CON, 12/14/2021, 12:46. FINDINGS: Image quality: There is artifact associated with the metallic hardware. Alignment and Curvature: There is minimal anterolisthesis at the L4-L5 level. Bone Marrow: Marrow is of normal overall signal. No acute vertebral body compression fractures. Spinal Cord: Conus medullaris terminates at the L1 level. Visualized cord demonstrates normal signal and size. Paraspinous Soft Tissues: No paravertebral masses. T12-L1: No significant abnormality. L1-L2: Level within normal limits. L2-L3: Mild loss of disc height is seen. Loss of disc signal is seen. Mild generalized disc bulge is seen. There is a superimposed central disc protrusion. There is a focal annular fissure seen posteriorly. Moderate facet joint hypertrophy is seen. No significant neural foraminal narrowing is seen. Moderate central canal narrowing is seen. These imaging findings have progressed compared to the prior study. L3-L4: Mild loss of disc height is seen. Loss of disc signal is seen. Mild generalized disc bulge is seen. Moderate facet joint hypertrophy is seen. There is moderate left-sided and no right-sided neural foraminal narrowing. Minimal central canal narrowing is seen. There is mild progression compared to the prior. L4-L5: Postoperative changes are seen at this level, with bilateral pedicle screws and vertical fixation rods. There is a disc spacer. There is a degree of bony fusion at this level. Reactive marrow endplate changes are seen, which are hyperintense on T1-weighted and T2-weighted imaging and most consistent with fatty metaplasia (Modic type II changes). Mild to moderate disc bulge is seen at this level. Moderate facet joint hypertrophy is seen. Moderate bilateral neural foraminal narrowing is seen. The central canal is widely patent. L5-S1: The disc height and disk signal are relatively well-preserved. Mild generalized disc bulge is seen. Moderate facet joint hypertrophy is seen. There is moderate right-sided neural foraminal narrowing. There is at least moderate left-sided neural foraminal narrowing, with a degree of compression upon the exiting left L5 nerve root. No significant central canal narrowing is seen. These imaging findings have progressed compared to the prior study. IMPRESSION: Multiple levels of degenerative change are seen, which are mildly progressed compared to the 2023 images. Prior postoperative change seen at the L4-L5 level. Dictated by: Sergio Cali M.D. on 05/20/2025 at 16:08 Approved by: Sergio Cali M.D. on 05/20/2025 at 16:14
== END ==
LOC: MRI 15:21
PROVIDERS: PCP Internal Medicine; Referring Provider Internal Medicine; Visit Provider Neurological Surgery
DX: M47.815 Spondylosis without myelopathy or radiculopathy, thoracolumbar region (principal); M47.817 Spondylosis without myelopathy or radiculopathy, lumbosacral region; M51.369 Other intervertebral disc degeneration, lumbar region without mention of lumbar back pain or lower extremity pain; M51.379 Other intervertebral disc degeneration, lumbosacral region without mention of lumbar back pain or lower extremity pain; M48.061 Spinal stenosis, lumbar region without neurogenic claudication; M48.07 Spinal stenosis, lumbosacral region; M79.18 Myalgia, other site; Z98.1 Arthrodesis status
CPT/HCPCS: 72148

== ENCOUNTER → 2025-06-24 13:05 | Outpatient (CLI) | payer MEDICARE, OTHER, SELFPAY ==
[2025-06-24 14:19] LABS: Free T3, Triiodothyronine Free 2.81 pg/mL (2.77-5.27)
[2025-06-24 14:23] LABS: Follicle Stimulating Hormone 49.6 mIU/mL; Progesterone, Total 0.38 ng/mL
[2025-06-24 14:33] LABS: Thyroid Stimulating Hormone 3.33 uIU/mL (0.47-4.68)
[2025-06-24 14:39] LABS: Estradiol, Total 18.4 pg/mL
== END ==
PROVIDERS: PCP Internal Medicine; Referring Provider Internal Medicine; Visit Provider Nurse Practitioner Family
DX: N80.9 Endometriosis, unspecified (principal); N95.9 Unspecified menopausal and perimenopausal disorder; Z79.899 Other long term (current) drug therapy; R53.83 Other fatigue
CPT/HCPCS: 36415; 82627; 82670; 83001; 83002; 84144; 84270; 84402; 84403; 84443; 84481